=== PATIENT | female | born 1945 | race Caucasian/White ===

== ENCOUNTER 2018-05-29 11:22 | Emergency (ER) | payer MEDICARE ==
--- NOTE | 2018-05-29 13:44 | ED Physician Documentation ---
PD HPI ABD PAIN - Stated complaint Stated Complaint: CONSTIPATION - Chief complaint Chief Complaint: Abd Pain - History obtained from History obtained from: Patient, Family - History of Present Illness Timing - onset: Other (For unclear reasons without new medications or dietary changes she is been very constipated for the last 4 days despite taking oral laxatives. She has rectal pressure and hemorrhoidal bleeding. No vomiting.) Review of Systems Ten Systems: 10 systems reviewed and negative Constitutional: denies: Fever, Chills Cardiac: denies: Chest pain / pressure, Palpitations Respiratory: denies: Dyspnea, Cough GI: reports: Constipation. denies: Abdominal Pain, Nausea, Vomiting, Diarrhea PD PAST MEDICAL HISTORY - Present Medications Home Medications: Ambulatory Orders Medication Instructions Recorded Confirmed Amitriptyline [Elavil] 05/29/18 Aspirin EC [Ecotrin] 05/29/18 Aspirin/Acetaminophen/Caffeine 05/29/18 [Excedrin Extra Strength Caplet] Calcium/Magnesium/Zinc 05/29/18 [Oxaocjn-Uwkclsgee-Zdnp Tablet] Carvedilol 05/29/18 Estrogens, Conjugated [Premarin] 05/29/18 Lactulose [Constulose] 10 gm PO Q6H PRN #200 ml 05/29/18 Levothyroxine [Synthroid] 05/29/18 Meloxicam [Mobic] 7.5 mg PO BID PRN #10 tablet 05/29/18 Multivitamin [Multiple Vitamins] 05/29/18 - Allergies Allergies/Adverse Reactions: Allergies Allergy/AdvReac Type Severity Reaction Status Date / Time morphine AdvReac Emesis Verified 05/29/18 11:33 PD ED PE NORMAL - Vitals Vital signs reviewed: Yes - General General: Alert and oriented X 3, No acute distress - Respiratory Respiratory: No respiratory distress - Abdomen Abdomen: Normal bowel sounds, Soft, Non tender - Rectal Rectal: Other (with Negar, RN, Soft brown fecal impaction, enema placed during examination. Lots of hemorrhoids without active bleeding.) - Back Back: No CVA TTP, No spinal TTP - Neuro Neuro: Alert and oriented X 3, Normal speech Results - Vitals Vitals: Vital Signs - 24 hr 05/29/18 11:30 Temperature 35.7 C L Heart Rate 82 Respiratory 20 Rate Blood Pressure 148/77 H O2 Saturation 96 Oxygen O2 Source Room air - Labs Labs: Laboratory Tests 05/29/18 05/29/18 05/29/18 14:18 14:18 16:30 WBC 6.8 RBC 4.58 Hgb 13.2 Hct 38.8 MCV 84.8 MCH 28.8 MCHC 34.0 RDW 13.8 Plt Count 306 MPV 7.3 L Neut # (Auto) 3.7 Lymph # (Auto) 2.1 [place] # (Auto) 0.5 Eos # (Auto) 0.5 Baso # (Auto) 0.1 Absolute Nucleated RBC 0.00 Nucleated RBC % 0.0 Sodium 138 Potassium 4.5 Chloride 102 Carbon Dioxide 25 Anion Gap 11.0 BUN 18 Creatinine 0.8 Estimated GFR (MDRD) 70 L Glucose 104 H Calcium 10.0 Total Bilirubin 0.2 AST 25 ALT 15 Alkaline Phosphatase 87 Total Protein 8.0 Albumin 4.0 Globulin 4.0 Albumin/Globulin Ratio 1.0 Lipase 37 Urine Color YELLOW Urine Clarity CLOUDY Urine pH 5.5 Ur Specific [place] 1.010 Urine Protein NEGATIVE Urine Glucose (UA) NEGATIVE Urine Ketones NEGATIVE Urine Occult Blood SMALL H Urine Nitrite NEGATIVE Urine Bilirubin NEGATIVE Urine Urobilinogen 0.2 (NORMAL) Ur Leukocyte Esterase MODERATE H Urine RBC 6-10 H Urine WBC 11-25 H Ur Squamous Epith Cells MANY Squamous H Urine Bacteria Moderate H Ur Microscopic Review INDICATED Urine Culture Comments NOT INDICATED - Rads (name of study) CT A/P Radiology: EMP read contemporaneously (Diverticulosis, small rectal ball) PD MEDICAL DECISION MAKING - ED course ED course: She has a high fecal impaction that with difficulty was disimpacted using multiple rounds of enemas. She had a lot of rectal pain and hemorrhoids with it. Departure - Departure Disposition: 01 Home, Self Care Clinical Impression: Fecal impaction Abdominal pain Qualifiers: Abdominal location: generalized Qualified Code(s): R10.84 - Generalized abdominal pain Condition: Good Record reviewed to determine appropriate education?: Yes Instructions: ED Impaction Fecal Treated Prescriptions: Lactulose [Constulose] 10 gm PO Q6H PRN #200 ml PRN Reason: Constipation Meloxicam [Mobic] 7.5 mg PO BID PRN #10 tablet PRN Reason: Pain Comments: Call your doctor to arrange a follow-up appointment, make the next available appointment. In the interim, return anytime if worse or if new symptoms develop. Your blood pressure was elevated today on check into the emergency department. This does not mean that you have hypertension, it is a common phenomenon to come to the emergency department and have elevated blood pressure. I recommend that you see your primary care physician within the week to have it rechecked when you are feeling better.
[2018-05-29] MEDS: MAGNESIUM CITRATE 296 ML BOTTLE PO STA (14:19)
[2018-05-29] MEDS: BISACODYL 5 MG TABLET PO STA (14:20)
[2018-05-29 14:24] LABS: BASOPHILS # (AUTO) 0.1 10^3/uL (0.0-0.1); BASOPHILS % (AUTO) 0.9 %; EOSINOPHILS # (AUTO) 0.5 10^3/uL (0.0-0.7); EOSINOPHILS % (AUTO) 6.6 %; HGB - HEMOGLOBIN 13.2 g/dL (12.0-16.0); LYMPHOCYTES # (AUTO) 2.1 10^3/uL (1.5-3.5); LYMPHOCYTES % (AUTO) 31.1 %; MEAN CORPUSCULAR HEMOGLOBIN 28.8 pg (27.0-31.0); MEAN CORPUSCULAR VOLUME 84.8 fL (81.0-99.0); MEAN PLATELET VOLUME 7.3 fL (7.9-10.8); MONOCYTES # (AUTO) 0.5 10^3/uL (0.0-1.0); MONOCYTES % (AUTO) 6.8 %; NEUTROPHILS # (AUTO) 3.7 10^3/uL (1.5-6.6); NEUTROPHILS % (AUTO) 54.6 %; PLT - PLATELET COUNT 306 10^3/uL (130-450); RED BLOOD COUNT 4.58 10^6/uL (4.20-5.40); RED CELL DISTRIBUTION WIDTH 13.8 % (12.0-15.0); WHITE BLOOD COUNT 6.8 x10^3/uL (4.8-10.8)
[2018-05-29 14:37] LABS: BILIRUBIN,TOTAL 0.2 mg/dL (0.2-1.0); CREATININE 0.8 mg/dL (0.4-1.0)
[2018-05-29] MEDS ORDERED: IOVERSOL 320 100 ML VIAL IVP ONE (14:42)
[2018-05-29] MEDS: IOVERSOL 320 100 ML VIAL IVP ONE (15:05)
--- NOTE | 2018-05-29 15:16 | CT Report ---
Reason: IV only, low abd pain Procedure Date: 05/29/2018 Accession Number: [id number] / [id number] Procedure: CT - Abdomen/Pelvis W/ CPT Code: FULL RESULT: EXAM: CT ABDOMEN AND PELVIS WITH CONTRAST EXAM DATE: 05/29/2018 02:57 PM. CLINICAL HISTORY: Constipation. Lower abdominal pain. COMPARISONS: None. TECHNIQUE: Routine helical CT imaging was performed through the abdomen and pelvis. IV contrast: OPTI 320, 100 mL. Enteric contrast: No. Reconstructions: Coronal and sagittal. In accordance with CT protocol optimization, one or more of the following dose reduction techniques were utilized for this exam: automated exposure control, adjustment of mA and/or KV based on patient size, or use of iterative reconstructive technique. FINDINGS: Lung Bases: Unremarkable. Liver: Fatty infiltration. Gallbladder/Bile Ducts: Cholecystectomy. No biliary duct dilatation. Spleen: Normal. Pancreas: Normal. Adrenal Glands: Normal. Kidneys: Normal. Several 2 cm and smaller renal stones bilaterally. No masses or hydronephrosis. Peritoneal Cavity/Bowel: Diverticula off the colon. No free fluid, free air or adenopathy. No masses or acute inflammatory process. Appendix not visualized but no inflammatory changes adjacent to the cecum. Suspect prior appendectomy. Pelvic Organs: Surgical clips both inguinal regions. Moderate amount of stool within the mildly distended rectum without evidence of stercoral colitis. The bladder and visualized pelvic organs are within normal limits. Vasculature: No aneurysms or other significant abnormality. Bones: No significant abnormality. Other: None. IMPRESSION: 1. Colonic diverticulosis. 2. Small rectal stool ball, not considered significant amount of retained stool. RADIA
[2018-05-29 16:45] LABS: BILIRUBIN,URINE NEGATIVE (NEGATIVE); GLUCOSE, URINE (UA) NEGATIVE (NEGATIVE); KETONES,URINE (UA) NEGATIVE (NEGATIVE); LEUKOCYTE ESTERASE, URINE MODERATE (NEGATIVE); NITRITE,URINE NEGATIVE (NEGATIVE); OCCULT BLOOD,URINE SMALL (NEGATIVE); PH,URINE 5.5 PH (5.0-7.5); PROTEIN,URINE NEGATIVE (NEGATIVE); UROBILINOGEN,URINE 0.2 (NORMAL) E.U./dL (NORMAL)
[2018-05-29 16:48] LABS: CLARITY,URINE CLOUDY (CLEAR)
[2018-05-29 17:05] LABS: BACTERIA,URINE Moderate /HPF (None Seen); SQUAMOUS EPITHELIAL CELL,UR MANY Squamous (<= Few)
[2018-05-29 18:57] VITALS: BP 148/93
== END 2018-05-29 18:57 | disposition home or self-care (01) ==
LOC: ED 11:22
DX: K56.41 Fecal impaction (principal); R10.84 Generalized abdominal pain; R03.0 Elevated blood-pressure reading, without diagnosis of hypertension; K64.9 Unspecified hemorrhoids; Z79.82 Long term (current) use of aspirin
CPT/HCPCS: 36415; 74177; 80053; 81001; 83690; 85025; 99283; 99284; A9270; Q9967; 81003; 87086

== ENCOUNTER 2019-03-03 07:58 | Outpatient (CLI) | payer MEDICARE, OTHER ==
[2019-03-03 08:48] LABS: BASOPHILS % (AUTO) 0.6 %; EOSINOPHILS # (AUTO) 0.2 10^3/uL (0.0-0.7); EOSINOPHILS % (AUTO) 3.5 %; HGB - HEMOGLOBIN 13.1 g/dL (12.0-16.0); LYMPHOCYTES # (AUTO) 2.3 10^3/uL (1.5-3.5); LYMPHOCYTES % (AUTO) 34.6 %; MEAN CORPUSCULAR HEMOGLOBIN 28.4 pg (27.0-31.0); MEAN CORPUSCULAR HGB CONC 31.8 g/dL (32.0-36.0); MEAN CORPUSCULAR VOLUME 89.4 fL (81.0-99.0); MEAN PLATELET VOLUME 9.8 fL (7.9-10.8); MONOCYTES # (AUTO) 0.4 10^3/uL (0.0-1.0); MONOCYTES % (AUTO) 6.5 %; NEUTROPHILS # (AUTO) 3.6 10^3/uL (1.5-6.6); PLT - PLATELET COUNT 232 10^3/uL (130-450); RED BLOOD COUNT 4.61 10^6/uL (4.20-5.40); RED CELL DISTRIBUTION WIDTH 13.6 % (12.0-15.0); WHITE BLOOD COUNT 6.6 x10^3/uL (4.8-10.8)
[2019-03-03 09:11] LABS: BILIRUBIN,URINE NEGATIVE (NEGATIVE); GLUCOSE, URINE (UA) NEGATIVE (NEGATIVE); KETONES,URINE (UA) NEGATIVE (NEGATIVE); LEUKOCYTE ESTERASE, URINE SMALL (NEGATIVE); NITRITE,URINE NEGATIVE (NEGATIVE); OCCULT BLOOD,URINE MODERATE (NEGATIVE); PH,URINE 5.5 PH (5.0-7.5); PROTEIN,URINE NEGATIVE (NEGATIVE); UROBILINOGEN,URINE 0.2 (NORMAL) E.U./dL (NORMAL)
[2019-03-03 09:25] LABS: ALBUMIN 3.8 g/dL (3.2-5.5); ALBUMIN/GLOBULIN RATIO 1.1 (1.0-2.2); ALKALINE PHOSPHATASE 67 IU/L (42-121); ALT ALANINE AMINOTRANSFERASE 14 IU/L (10-60); AST ASPARTATE AMINOTRANSFERASE 38 IU/L (10-42); BILIRUBIN,TOTAL 0.7 mg/dL (0.2-1.0); BUN - BLOOD UREA NITROGEN 16 mg/dL (6-20); CALCIUM 9.6 mg/dL (8.5-10.3); CARBON DIOXIDE - CO2 23 mmol/L (21-32); CHLORIDE 103 mmol/L (101-111); CHOL/HDL RATIO 3.1 (<4.4); CHOLESTEROL 246 mg/dL; GFR - MDRD 54 (>89); GLUCOSE 99 mg/dL (70-100); HDL CHOLESTEROL 79 mg/dL; LDL CHOLESTEROL,CALCULATED 127 mg/dL; LDL/HDL RATIO 1.6 (<4.4); SODIUM 139 mmol/L (135-145); TOTAL PROTEIN 7.3 g/dL (6.7-8.2); VLDL CHOLESTEROL 40 mg/dL
[2019-03-03 09:34] LABS: THYROID STIMULATING HORMONE 0.58 uIU/mL (0.34-5.60)
[2019-03-03 10:53] LABS: CLARITY,URINE CLEAR (CLEAR)
[2019-03-03 10:54] LABS: BACTERIA,URINE Moderate /HPF (None Seen); RBC,URINE 0-5 /HPF (0-5); SQUAMOUS EPITHELIAL CELL,UR MOD Squamous (<= Few)
== END 2019-03-03 07:59 | disposition home or self-care (01) ==
LOC: LAB 07:58
PROVIDERS: ATTEND Internal Medicine
DX: R53.83 Other fatigue (principal); I10 Essential (primary) hypertension; K57.92 Diverticulitis of intestine, part unspecified, without perforation or abscess without bleeding; G43.909 Migraine, unspecified, not intractable, without status migrainosus; E03.9 Hypothyroidism, unspecified; Z13.6 Encounter for screening for cardiovascular disorders; Z79.899 Other long term (current) drug therapy
CPT/HCPCS: 36415; 80053; 80061; 81001; 81003; 82607; 83721; 84443; 85025; 87086

== ENCOUNTER 2019-03-19 10:42 | Outpatient (CLI) | payer MEDICARE, OTHER ==
--- NOTE | 2019-04-05 10:29 | Mammography Report ---
Reason: ROUTINE MAMMO Procedure Date: 03/19/2019 Accession Number: [id number] / [id number] Procedure: HÉCTOR - Screening Mammo w/Gucci CPT Code: FULL RESULT: EXAM: Screening Mammo w/Gucci DATE: 03/19/2019 11:22 AM CLINICAL HISTORY: Routine screening TECHNIQUE: (B) - Bilateral CC and MLO views were obtained. COMPARISON: None available PARENCHYMAL PATTERN: (A) - The breasts demonstrate scattered fibroglandular densities bilaterally. FINDINGS: There are no suspicious calcifications, skin thickening, or areas of distortion. Multiple bilateral masses of varying size are present. On the right the dominant 3 all measure under 1 cm and are in the upper outer quadrant. On the left the dominant measures 8.5 mm and is in the upper inner breast approximately 4 cm from the nipple. A cluster of 3 adjacent nodules are present in the 2:00 position 8 cm from the nipple with several smaller nodules also in the upper outer quadrant and 12:00 position. IMPRESSION: Incomplete examination. BI-RADS category 0. Suggest bilateral true lateral views and ultrasound for further evaluation of the numerous nodules, presumed cysts. Dominant nodules have been described above. RECOMMENDATION: (ADDM[facility]) - Additional views using both Mammography and Ultrasound recommended. BI-RADS CATEGORY: (0) - Incomplete Examination - need additional evaluation. STANDARD QUALIFYING STATEMENTS: 1. This examination was not reviewed with the aid of Computer-Aided Detection (CAD). 2. A negative or benign imaging report should not preclude biopsy if clinically suspicious findings are present. 3. Dense breasts may obscure an underlying neoplasm. 4. This examination was reviewed with the aid of 3D breast imaging (tomosynthesis). Comment: If prior mammograms become available for comparison additional imaging may not be necessary.
== END 2019-03-19 10:43 | disposition home or self-care (01) ==
LOC: DI 10:42
PROVIDERS: ATTEND Internal Medicine
DX: Z12.31 Encounter for screening mammogram for malignant neoplasm of breast (principal); R92.8 Other abnormal and inconclusive findings on diagnostic imaging of breast
CPT/HCPCS: 77063; 77067

== ENCOUNTER 2019-04-23 08:53 | Outpatient (CLI) | payer MEDICARE, OTHER ==
--- NOTE | 2019-04-23 10:53 | Mammography Report ---
Reason: ABN MAMMO - BILAT SPEC VIEWS Procedure Date: 04/23/2019 Accession Number: [id number] / [id number] Procedure: HÉCTOR - Diag Special Views Dig Bilat CPT Code: Final Report FULL RESULT: EXAM: Diag Special Views Dig Bilat, Breast Unilateral Limited, Breast Unilateral Limited DATE: 04/23/2019 9:29 AM CLINICAL HISTORY: Recall from screening for bilateral oval masses. No reported personal or family history of breast cancer. Long-term hormone replacement therapy. TECHNIQUE: (B) - Bilateral CC and ML views were obtained. Bilateral real-time sonography is performed by both the technologist and the radiologist. COMPARISON: 03/19/2019. PARENCHYMAL PATTERN: (A) - The breasts demonstrate scattered fibroglandular densities bilaterally. FINDINGS: Bilateral breasts: There are numerous bilateral, round and oval, circumscribed margin benign-appearing masses in both breasts. These bilateral mammographic findings to encompass multiple areas recalled from screening bilaterally, as well as other similar-appearing findings. There are no suspicious calcifications or areas of distortion. Bilateral breast ultrasound demonstrates numerous bilateral anechoic simple parenchymal cysts accounting for mammographic findings. The entire upper breasts are scanned bilaterally no solid or concerning masses. A single mildly complicated/compartmentalized 8 mm cyst 12:00 left breast 5 cm from the nipple is noted, all other cysts have simple characteristics. IMPRESSION: Benign findings. BI-RADS category 2. RECOMMENDATION: (ANNUAL) - Recommend routine annual screening mammography. BI-RADS CATEGORY: (2) - Benign Findings. STANDARD QUALIFYING STATEMENTS: 1. This examination was not reviewed with the aid of Computer-Aided Detection (CAD). 2. A negative or benign imaging report should not preclude biopsy if clinically suspicious findings are present. 3. Dense breasts may obscure an underlying neoplasm. 4. This examination was reviewed with the aid of 3D breast imaging (tomosynthesis).
== END 2019-04-23 08:54 | disposition home or self-care (01) ==
LOC: DI 08:53
PROVIDERS: ATTEND Internal Medicine
DX: N60.12 Diffuse cystic mastopathy of left breast (principal); N60.11 Diffuse cystic mastopathy of right breast
CPT/HCPCS: 76642; 77066

== ENCOUNTER 2020-01-25 08:25 | Emergency (ER) | payer MEDICARE, OTHER ==
[2020-01-25 09:06] LABS: BASOPHILS % (AUTO) 0.5 %; EOSINOPHILS # (AUTO) 0.3 10^3/uL (0.0-0.7); EOSINOPHILS % (AUTO) 3.4 %; HGB - HEMOGLOBIN 13.1 g/dL (12.0-16.0); LYMPHOCYTES # (AUTO) 2.6 10^3/uL (1.5-3.5); LYMPHOCYTES % (AUTO) 32.8 %; MEAN CORPUSCULAR HEMOGLOBIN 28.4 pg (27.0-31.0); MEAN CORPUSCULAR HGB CONC 32.7 g/dL (32.0-36.0); MEAN CORPUSCULAR VOLUME 86.8 fL (81.0-99.0); MEAN PLATELET VOLUME 8.8 fL (7.9-10.8); MONOCYTES # (AUTO) 0.5 10^3/uL (0.0-1.0); MONOCYTES % (AUTO) 6.4 %; NEUTROPHILS # (AUTO) 4.4 10^3/uL (1.5-6.6); NEUTROPHILS % (AUTO) 56.5 %; PLT - PLATELET COUNT 319 10^3/uL (130-450); RED BLOOD COUNT 4.62 10^6/uL (4.20-5.40); RED CELL DISTRIBUTION WIDTH 13.2 % (12.0-15.0); WHITE BLOOD COUNT 7.8 x10^3/uL (4.8-10.8)
[2020-01-25 09:23] LABS: BILIRUBIN,URINE NEGATIVE (NEGATIVE); GLUCOSE, URINE (UA) NEGATIVE (NEGATIVE); KETONES,URINE (UA) NEGATIVE (NEGATIVE); LEUKOCYTE ESTERASE, URINE SMALL (NEGATIVE); NITRITE,URINE NEGATIVE (NEGATIVE); OCCULT BLOOD,URINE MODERATE (NEGATIVE); PH,URINE 5.5 PH (5.0-7.5); PROTEIN,URINE NEGATIVE (NEGATIVE); UROBILINOGEN,URINE 0.2 (NORMAL) E.U./dL (NORMAL)
[2020-01-25 09:26] LABS: ALBUMIN 3.8 g/dL (3.2-5.5); ALBUMIN/GLOBULIN RATIO 0.9 (1.0-2.2); BILIRUBIN,TOTAL 0.3 mg/dL (0.2-1.0); CREATININE 0.8 mg/dL (0.4-1.0); TOTAL PROTEIN 7.9 g/dL (6.7-8.2)
[2020-01-25 09:31] LABS: CLARITY,URINE CLEAR (CLEAR)
[2020-01-25] MEDS: ONDANSETRON 4 MG/2 ML VIAL IVP STA (09:31)
[2020-01-25] MEDS: fentaNYL 100 MCG/2 ML VIAL IVP STA (09:31)
[2020-01-25] MEDS: KETOROLAC 15 MG/ML VIAL IVP STA (09:31)
[2020-01-25] MEDS: FAMOTIDINE 20 MG/2 ML SYRINGE IVP STA (09:32)
[2020-01-25] MEDS: MAG HYDROX/AL HYDROX/SIMETH 30 ML UDC PO STA (09:32)
[2020-01-25 09:44] LABS: BACTERIA,URINE Few /HPF (None Seen); RBC,URINE 0-5 /HPF (0-5); SQUAMOUS EPITHELIAL CELL,UR MOD Squamous (<= Few)
[2020-01-25] MEDS: SODIUM CHLORIDE 0.9% 1,000 ML IV STA (09:45)
[2020-01-25] MEDS ORDERED: IOVERSOL 320 100 ML VIAL IVP ONE (09:50)
--- NOTE | 2020-01-25 10:53 | CT Report ---
PROCEDURE: Abdomen/Pelvis W INDICATIONS: abd pain upper, nausea CONTRAST: IV CONTRAST: Optiray 320 ml: TECHNIQUE: After the administration of IV contrast, 5 mm thick sections acquired from the diaphragms to the symp hysis. 5 mm thick coronal and sagittal reformats were acquired. For radiation dose reduction, the f ollowing was used: automated exposure control, adjustment of mA and/or kV according to patient size. COMPARISON: None. FINDINGS: Image quality: Excellent. ABDOMEN: Lung bases: Lung bases are clear. Heart size is normal. Solid organs: Liver is enlarged with steatosis. Spleen is unremarkable. Gallbladder has been removed . Common bile duct is prominent measuring 13 mm. Pancreas enhances normally. No adrenal nodules. Kidneys demonstrate normal size and enhancement, without hydronephrosis. Peritoneum and bowel: Bowel loops demonstrate normal wall thickness and caliber. No free fluid or a ir. Colonic diverticula are present without associated inflammatory change. Nodes and vessels: There is a cluster of lymph nodes within the mid abdominal mesentery on series 3 i mages 46 and 47. The largest measures approximately 19 mm in short axis. There is a very minimal appe arance of stranding within the mesenteric fat within this region. Portions of this region are obscure d by overlapping noncontrasted bowel loops. Aorta and inferior vena cava are normal in size. Miscellaneous: No ventral hernias. PELVIS: Genitourinary: Bladder wall thickness is normal. Miscellaneous: No inguinal hernias or adenopathy. Bones: No suspicious bony lesions. No vertebral body compression fractures. IMPRESSION: 1. Nonspecific appearance of scattered mid abdominal mesenteric lymph nodes as above. These could be reactive in nature. However, recommend interval follow-up to document resolution and exclude presence of other more aggressive etiologies. 2. Hepatomegaly with steatosis. 3. Diverticulosis. 4. Prominent common bile duct suspected to be related to postcholecystectomy sequela. However, recomm end correlation to laboratory values. Reviewed by: Venita Workman MD on 01/25/2020 10:51 AM PDT Approved by: Venita Workman MD on 01/25/2020 10:51 AM PDT Station ID: [id number]
--- NOTE | 2020-01-25 11:53 | ED Physician Documentation ---
PD HPI ABD PAIN - Stated complaint Stated Complaint: R SIDE PX - Chief complaint Chief Complaint: Abd Pain - History obtained from History obtained from: Patient - History of Present Illness Timing - onset: How many months ago (has had upper right abd pain after eating at times for past couple of months intermittently, but more consistent the past several days/week.) Timing - details: Still present, Intermittant Quality: Cramping, Aching, Pain Location: RUQ, Epigastric Radiation: No: Lower back, Right shoulder Improved by: No: Eating Worsened by: Eating Associated symptoms: Nausea, Loss of appetite. No: Fever, Vomiting, Diarrhea, Dysuria, Near syncope / syncope, Weight loss Similar symptoms before: Has not had sx before Recently seen: Not recently seen Review of Systems Constitutional: denies: Fever, Chills, Myalgias Nose: denies: Rhinorrhea / runny nose, Congestion Throat: denies: Sore throat Cardiac: denies: Chest pain / pressure Respiratory: denies: Cough GI: reports: Abdominal Pain, Nausea. 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 - Present Medications Home Medications: Ambulatory Orders Medication Instructions Recorded Confirmed Amitriptyline [Elavil] 05/29/18 Aspirin EC [Ecotrin] 05/29/18 Aspirin/Acetaminophen/Caffeine 05/29/18 [Excedrin Extra Strength Caplet] Calcium/Magnesium/Zinc 05/29/18 [Aqeshvs-Fosuzundu-Bpea Tablet] Estrogens, Conjugated [Premarin] 05/29/18 Lactulose [Constulose] 10 gm PO Q6H PRN #200 ml 05/29/18 Levothyroxine [Synthroid] 05/29/18 Meloxicam [Mobic] 7.5 mg PO BID PRN #10 tablet 05/29/18 Multivitamin [Multiple Vitamins] 05/29/18 carvediloL [Carvedilol] 05/29/18 Hydrocodone/Acetaminophen [Stebbins 1 each PO Q6H PRN #15 tablet 01/25/20 5-325 Tablet] Lidocaine Viscous 2% [Xylocaine 5 ml PO Q4H PRN #100 ml 01/25/20 Viscous 2%] Ondansetron Odt [Zofran] 4 mg TL Q6H PRN #10 tablet 01/25/20 Pantoprazole Sodium 40 mg PO DAILY #30 tablet. 01/25/20 Sucralfate [Carafate] 1 gm PO TID #30 tablet 01/25/20 - Allergies Allergies/Adverse Reactions: Allergies Allergy/AdvReac Type Severity Reaction Status Date / Time morphine AdvReac Emesis Verified 01/25/20 08:34 - Social History Does the pt smoke?: No Smoking Status: Never smoker Does the pt drink ETOH?: No Does the pt have substance abuse?: No - Immunizations Immunizations are current?: Yes PD ED PE NORMAL - Vitals Vital signs reviewed: Yes - General General: Alert and oriented X 3, No acute distress (does seem uncomfortable and holding upper abdomen. ), Well developed/nourished - HEENT HEENT: Pharynx benign - Neck Neck: Supple, no meningeal sign, No adenopathy - Cardiac Cardiac: RRR, No murmur - Respiratory Respiratory: Clear bilaterally - Abdomen Abdomen: Non distended, No organomegaly, Other (tender in epigastric area without guarding. Mild percussion tenderness.) Results - Vitals Vitals: Vital Signs - 24 hr 01/25/20 01/25/20 01/25/20 08:31 10:05 12:09 Temperature 36.5 C 36.4 C L Heart Rate 88 88 84 Respiratory 16 20 18 Rate Blood Pressure 184/123 H 166/84 H 141/86 H O2 Saturation 99 98 98 Oxygen O2 Source Room air - Labs Labs: Laboratory Tests 01/25/20 01/25/20 01/25/20 09:00 09:00 09:00 WBC 7.8 RBC 4.62 Hgb 13.1 Hct 40.1 MCV 86.8 MCH 28.4 MCHC 32.7 RDW 13.2 Plt Count 319 MPV 8.8 Neut # (Auto) 4.4 Lymph # (Auto) 2.6 [place] # (Auto) 0.5 Eos # (Auto) 0.3 Baso # (Auto) 0.0 Absolute Nucleated RBC 0.00 Nucleated RBC % 0.0 Sodium 135 Potassium 4.1 Chloride 99 L Carbon Dioxide 23 Anion Gap 13.0 BUN 16 Creatinine 0.8 Estimated GFR (MDRD) 70 L Glucose 112 H Calcium 10.0 Total Bilirubin 0.3 AST 24 ALT 16 Alkaline Phosphatase 87 Total Protein 7.9 Albumin 3.8 Globulin 4.1 Albumin/Globulin Ratio 0.9 L Lipase 32 Urine Color YELLOW Urine Clarity CLEAR Urine pH 5.5 Ur Specific [place] 1.020 Urine Protein NEGATIVE Urine Glucose (UA) NEGATIVE Urine Ketones NEGATIVE Urine Occult Blood MODERATE H Urine Nitrite NEGATIVE Urine Bilirubin NEGATIVE Urine Urobilinogen 0.2 (NORMAL) Ur Leukocyte Esterase SMALL H Urine RBC 0-5 Urine WBC 0-3 Ur Squamous Epith Cells MOD Squamous H Urine Bacteria Few Ur Microscopic Review INDICATED Urine Culture Comments NOT INDICATED PD MEDICAL DECISION MAKING - ED course Complexity details: reviewed results (labs and CT normal. Presume gastritis/duodenitis by history. ), re-evaluated patient, considered differential (upper abd pain with eating. s/p CCY. Can get labs to eval liver function and CT to exclude transverse diverticulitis, or other process.), d/w patient Departure - Departure Disposition: Home, Self Care Clinical Impression: Upper abdominal pain Gastritis, acute Qualifiers: Gastritis type: other gastritis Gastritis bleeding: without bleeding Qualified Code(s): K29.00 - Acute gastritis without bleeding Condition: Stable Record reviewed to determine appropriate education?: Yes Instructions: ED PUD Vs Gastritis Follow-Up: Alessia Ga MD [Primary Care Provider] - Prescriptions: Sucralfate [Carafate] 1 gm PO TID #30 tablet Hydrocodone/Acetaminophen [Stebbins 5-325 Tablet] 1 each PO Q6H PRN #15 tablet PRN Reason: Pain Pantoprazole Sodium 40 mg PO DAILY #30 tablet. Lidocaine Viscous 2% [Xylocaine Viscous 2%] 5 ml PO Q4H PRN #100 ml PRN Reason: Pain Ondansetron Odt [Zofran] 4 mg TL Q6H PRN #10 tablet PRN Reason: Nausea / Vomiting Comments: Your CT scan and labs did not show any localized process to account for the pain. There were a few scattered lymph nodes which suggest reacting to some inflammation. Your symptoms would suggest an ulcer or gastritis, which typically is not visible on CT/labs. I would suggest taking pantoprazole acid reducing medicine daily for the next month. For the initial 7 to 10 days, also use sucralfate to coat the stomach and duodenum. For symptoms he can add antacid such as Maalox or Mylanta and add a teaspoon of lidocaine to it if needed for stomach pain. You could also use Tylenol if nee ded. Add hydrocodone if needed for worse pain. Did not use any ibuprofen or naproxen or other anti-inflammatories as it can bother your stomach. Recheck if not improving well over the next several days and resolved within a week. Return if worsening. Discharge Date/Time: 01/25/20 12:10
[2020-01-25 12:10] VITALS: BP 141/86
[2020-01-25] MEDS: IOVERSOL 320 100 ML VIAL IVP ONE (15:54)
== END 2020-01-25 12:10 | disposition home or self-care (01) ==
LOC: ED 08:25
DX: K29.00 Acute gastritis without bleeding (principal); K76.0 Fatty (change of) liver, not elsewhere classified; Z87.19 Personal history of other diseases of the digestive system; I10 Essential (primary) hypertension; Z79.82 Long term (current) use of aspirin
CPT/HCPCS: 36415; 74177; 80053; 81001; 83690; 85025; 96361; 96374; 96375; 99284; A9270; Q9967; 81003; 87086

== ENCOUNTER 2020-04-04 08:16 | Outpatient (CLI) | payer MEDICARE, OTHER ==
[2020-04-04 08:56] LABS: BASOPHILS % (AUTO) 0.5 %; EOSINOPHILS # (AUTO) 0.2 10^3/uL (0.0-0.7); EOSINOPHILS % (AUTO) 3.4 %; HGB - HEMOGLOBIN 11.3 g/dL (12.0-16.0); LYMPHOCYTES # (AUTO) 1.7 10^3/uL (1.5-3.5); LYMPHOCYTES % (AUTO) 26.8 %; MEAN CORPUSCULAR HEMOGLOBIN 26.8 pg (27.0-31.0); MEAN CORPUSCULAR HGB CONC 31.2 g/dL (32.0-36.0); MEAN PLATELET VOLUME 8.3 fL (7.9-10.8); MONOCYTES # (AUTO) 0.4 10^3/uL (0.0-1.0); MONOCYTES % (AUTO) 6.9 %; NEUTROPHILS % (AUTO) 61.9 %; PLT - PLATELET COUNT 340 10^3/uL (130-450); RED BLOOD COUNT 4.21 10^6/uL (4.20-5.40); RED CELL DISTRIBUTION WIDTH 13.2 % (12.0-15.0); WHITE BLOOD COUNT 6.4 x10^3/uL (4.8-10.8)
[2020-04-04 09:48] LABS: THYROID STIMULATING HORMONE 0.65 uIU/mL (0.34-5.60)
[2020-04-04 10:10] LABS: ALBUMIN 3.3 g/dL (3.2-5.5); ALBUMIN/GLOBULIN RATIO 0.8 (1.0-2.2); ALKALINE PHOSPHATASE 94 IU/L (42-121); ALT ALANINE AMINOTRANSFERASE 18 IU/L (10-60); AST ASPARTATE AMINOTRANSFERASE 24 IU/L (10-42); BILIRUBIN,TOTAL 0.5 mg/dL (0.2-1.0); BUN - BLOOD UREA NITROGEN 17 mg/dL (6-20); CARBON DIOXIDE - CO2 21 mmol/L (21-32); CHLORIDE 105 mmol/L (101-111); CHOL/HDL RATIO 3.1 (<4.4); CHOLESTEROL 193 mg/dL; CREATININE 0.8 mg/dL (0.4-1.0); GLUCOSE 102 mg/dL (70-100); HDL CHOLESTEROL 62 mg/dL; LDL CHOLESTEROL,CALCULATED 92 mg/dL; LDL/HDL RATIO 1.5 (<4.4); SODIUM 136 mmol/L (135-145); TOTAL PROTEIN 7.2 g/dL (6.7-8.2); VLDL CHOLESTEROL 39 mg/dL
[2020-04-04 17:45] LABS: MAGNESIUM 2.1 mg/dL (1.7-2.8)
[2020-04-05 10:11] LABS: HEPATITIS C ANTIBODY NON-REACTIVE (NON-REACTIVE)
== END 2020-04-04 08:17 | disposition home or self-care (01) ==
LOC: LAB 08:16
PROVIDERS: ATTEND Internal Medicine
DX: Z13.6 Encounter for screening for cardiovascular disorders (principal); Z79.899 Other long term (current) drug therapy; R53.83 Other fatigue; I10 Essential (primary) hypertension; K57.92 Diverticulitis of intestine, part unspecified, without perforation or abscess without bleeding; G03.9 Meningitis, unspecified; G43.909 Migraine, unspecified, not intractable, without status migrainosus; R10.9 Unspecified abdominal pain; Z11.59 Encounter for screening for other viral diseases; K56.609 Unspecified intestinal obstruction, unspecified as to partial versus complete obstruction
CPT/HCPCS: 36415; 80053; 80061; 82607; 83721; 83735; 84443; 85025; 86803

== ENCOUNTER 2020-04-13 11:05 | Outpatient (CLI) | payer MEDICARE, OTHER ==
[2020-04-13] MEDS ORDERED: IOVERSOL 320 50 ML VIAL ONE (11:15)
[2020-04-13] MEDS ORDERED: IOVERSOL 320 100 ML VIAL IVP ONE ×2 (11:15→16:15)
--- NOTE | 2020-04-13 13:16 | CT Report ---
PROCEDURE: Abdomen/Pelvis W INDICATIONS: ABN CT, ENLARGED LN AND CBD CONTRAST: IV CONTRAST: Optiray 320 ml: 100 PO CONTRAST: Optiray 320 ml50 TECHNIQUE: After the administration of oral and intravenous contrast, 5 mm thick sections acquired from the diap hragms to the symphysis. 5 mm thick coronal and sagittal reformats were acquired. For radiation dos e reduction, the following was used: automated exposure control, adjustment of mA and/or kV accordin g to patient size. COMPARISON: 01/25/2020. FINDINGS: Image quality: Excellent. ABDOMEN: Lung bases: Lung bases are clear. Heart size is normal. Solid organs: Again noted is mild hepatomegaly and hepatic steatosis. Mild splenomegaly has developed . The spleen previously measured 13.3 cm and currently measures 14.6 cm. Gallbladder is surgically ab sent dilatation of the extrahepatic biliary tree postcholecystectomy without focal obstructing mass. Pancreas enhances normally. No adrenal nodules. Kidneys demonstrate normal size and enhancement, wi thout hydronephrosis. Peritoneum and bowel: A focal loop of abnormal jejunum has developed, and which there is diffuse wall thickening and mild dilatation. It is present on image 61/3. The constellation of this finding and a ssociated mesenteric adenopathy raise the question of possible lymphomatous involvement of a loop of small bowel. Extensive sigmoid diverticulosis without evidence of diverticulitis. No free fluid or ai r. Nodes and vessels: Definite interval progression of disease. Mesenteric adenopathy has increased in s ize, and is not clearly pathologic. Findings are suspicious for lymphoma. On image 50/3 there is a 3. 5 cm is an enteric lymph node. On image 55/3 is a 3.3 cm mesenteric lymph node. Multiple other enlarg ed mesenteric lymph nodes are present as well. Aorta and inferior vena cava are normal in size. Miscellaneous: No ventral hernias. PELVIS: Genitourinary: Bladder wall thickness is normal. Miscellaneous: Bilateral inguinal hernias containing fat. Surgical absence of the uterus. Bones: No suspicious bony lesions. No vertebral body compression fractures. IMPRESSION: 1. Definite interval progression of disease in the abdomen. A loop of abnormal appearing jejunum has developed, with wall thickening and mild dilatation. Additionally, multiple mesenteric lymph nodes coronel ve increased in size, and are clearly pathologic. 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 2. Development of mild splenomegaly, also supportive of the diagnosis of lymphoma. 3. Unchanged hepatomegaly, hepatic steatosis. 4. Sigmoid diverticulosis. 5. Bilateral fat-containing inguinal hernias. Comment: It is unlikely that the mesenteric adenopathy could be sampled under CT guidance, as based o n this study, there is no window between bowel loops present for performing a biopsy. Reviewed by: Rashid Tovar MD on 04/13/2020 1:15 PM PST Approved by: Rashid Tovar MD on 04/13/2020 1:15 PM PST Station ID: [id number]
[2020-04-13] MEDS ORDERED: IOVERSOL 320 50 ML VIAL PO ONE (16:14)
== END 2020-04-13 11:06 | disposition home or self-care (01) ==
LOC: DI 11:05
PROVIDERS: ATTEND Surgery
DX: R59.0 Localized enlarged lymph nodes (principal); K76.0 Fatty (change of) liver, not elsewhere classified; R16.1 Splenomegaly, not elsewhere classified; K57.30 Diverticulosis of large intestine without perforation or abscess without bleeding; K40.20 Bilateral inguinal hernia, without obstruction or gangrene, not specified as recurrent; R93.5 Abnormal findings on diagnostic imaging of other abdominal regions, including retroperitoneum
CPT/HCPCS: 74177; Q9967

== ENCOUNTER 2020-05-01 09:25 | Outpatient (CLI) | payer MEDICARE, OTHER ==
[2020-05-01 09:49] LABS: BASOPHILS % (AUTO) 0.5 %; EOSINOPHILS # (AUTO) 0.2 10^3/uL (0.0-0.7); EOSINOPHILS % (AUTO) 2.8 %; HGB - HEMOGLOBIN 10.9 g/dL (12.0-16.0); LYMPHOCYTES # (AUTO) 1.7 10^3/uL (1.5-3.5); LYMPHOCYTES % (AUTO) 26.7 %; MEAN CORPUSCULAR HEMOGLOBIN 26.6 pg (27.0-31.0); MEAN CORPUSCULAR VOLUME 85.9 fL (81.0-99.0); MONOCYTES # (AUTO) 0.4 10^3/uL (0.0-1.0); MONOCYTES % (AUTO) 6.3 %; NEUTROPHILS # (AUTO) 4.1 10^3/uL (1.5-6.6); NEUTROPHILS % (AUTO) 63.2 %; PLT - PLATELET COUNT 323 10^3/uL (130-450); RED CELL DISTRIBUTION WIDTH 13.5 % (12.0-15.0); WHITE BLOOD COUNT 6.4 x10^3/uL (4.8-10.8)
== END 2020-05-01 09:26 | disposition home or self-care (01) ==
LOC: LAB 09:25
PROVIDERS: ATTEND Surgery
DX: R59.1 Generalized enlarged lymph nodes (principal)
CPT/HCPCS: 36415; 85025

== ENCOUNTER 2020-05-15 11:00 | Outpatient (CLI) | payer MEDICARE, OTHER | END 2020-05-15 11:01 | disposition home or self-care (01) | LOC: LAB 11:00 | PROVIDERS: ATTEND Surgery | DX: Z01.818 Encounter for other preprocedural examination (principal); K56.609 Unspecified intestinal obstruction, unspecified as to partial versus complete obstruction; I88.0 Nonspecific mesenteric lymphadenitis; R63.4 Abnormal weight loss; R10.13 Epigastric pain; R68.81 Early satiety; Z20.828 Contact with and (suspected) exposure to other viral communicable diseases ==

== ENCOUNTER 2020-05-18 12:15 | Day surgery (SDC) | payer MEDICARE, OTHER ==
[2020-05-18] MEDS ORDERED: CEFOTETAN DISODIUM 2 GM in SODIUM CHLORIDE 0.9% MINIBAG 100 ML IV ONE (12:45)
[2020-05-18] MEDS ORDERED: LACTATED RINGERS 1,000 ML IV ONE ×3 (13:28→16:20)
[2020-05-18] MEDS ORDERED: LIDOCAINE 1% 50 ML MDV ONE (14:08)
[2020-05-18] MEDS ORDERED: BUPIVACAINE 0.5%-EPI 1:200000 PF 30 ML VIAL ONE (14:08)
--- NOTE | 2020-05-18 14:30 | ANESTHESIA ---
Pre-Anesthesia VS, & Labs - Diagnosis abd pain, jejunal obstruction - Procedure diagnostic laparoscopy Vital Signs: Temp Pulse Resp BP Pulse Ox 36.1 C L 82 16 154/71 H 100 05/18/20 12:50 05/18/20 12:50 05/18/20 12:50 05/18/20 12:50 05/18/20 12:50 Height: 5 ft 6 in Weight (kg): 97 kg Body Mass Index: 34.4 BMI Classification: Obese - NPO >8 hours - Is Patient ?: No - Lab Results Lab results reviewed: Yes Home Medications and Allergies Home Medications: Ambulatory Orders Cholecalciferol [Vitamin D3] 25 mcg PO DAILY 05/15/20 Omeprazole 20 mg PO DAILY 05/15/20 Active Medications Scopolamine HBr (Scopolamine Patch) 1 patch TOP Q3D [place] Amitriptyline [Elavil] 25 mg PO DAILY 05/29/18 Calcium/Magnesium/Zinc [Ssmzsce-Yamhvrein-Sdoq Tablet] 1 tab PO DAILY 05/29/18 Estrogens, Conjugated [Premarin] 0.625 mg PO DAILY 05/29/18 Levothyroxine [Synthroid] 100 mcg PO DAILY 05/29/18 Multivitamin [Multiple Vitamins] 1 tab PO DAILY 05/29/18 carvediloL [Carvedilol] 12.5 mg PO DAILY 05/29/18 Cholecalciferol [Vitamin D3] 25 mcg PO DAILY 05/15/20 Omeprazole 20 mg PO DAILY 05/15/20 Allergies/Adverse Reactions: Allergies Allergy/AdvReac Type Severity Reaction Status Date / Time morphine AdvReac Emesis Verified 01/25/20 08:34 shellfish derived AdvReac Emesis Verified 05/15/20 11:09 Anes History & Medical History - Anesthetic History Anesthesia Complications: reports: No previous complications, Post-Operative Nausea/Vomiting (scope patch) Family history of Anesthesia Complications: Denies Family history of Malignant Hyperthermia: Denies - Medical History Cardiovascular: reports: Hypertension Pulmonary: reports: None Gastrointestinal: reports: Diverticulitis Urinary: reports: None Neuro: reports: Migraines Musculoskeletal: reports: Osteoarthritis Endocrine/Autoimmune: reports: HyPOthyroidism Blood Disorders: reports: None Skin: reports: None Smoking Status: Never smoker - Surgical History General: Cholecystectomy Gynecologic: Hysterectomy Orthopedic: Knee replacement Exam General: Alert, Oriented x3, Cooperative Dental: Dentures full Upper Mouth Openin Fingerbreadth Neck Mobility: Normal Mallampati classification: II Respiratory: Lungs clear, Normal breath sounds, No respiratory distress Cardiovascular: Regular rate Neurological: Normal speech Mental/Cognitive Status: Alert/Oriented X3, Normal for patient Cognitive Status: Within normal limits Plan Anesthesia Type: General, Transverse Abdominis Plane (TAP) Block (if open) Consent for Procedure(s) Verified and Reviewed: Yes Code Status: Attempt Resuscitation ASA classification: 2-Mild systemic disease Is this case an emergency?: No
[2020-05-18] MEDS ORDERED: ROCURONIUM 50 MG/5 ML VIAL IVP ONE (14:38)
[2020-05-18] MEDS ORDERED: GLYCOPYRROLATE 1 MG/5 ML VIAL IVP ONE (14:38)
[2020-05-18] MEDS ORDERED: NEOSTIGMINE 1 MG/1 ML 10 ML MDV IVP ONE (14:38)
[2020-05-18] MEDS ORDERED: ONDANSETRON 4 MG/2 ML VIAL IVP ONE (14:38)
[2020-05-18] MEDS ORDERED: PROPOFOL 200 MG/20 ML VIAL IVP ONE (14:38)
[2020-05-18] MEDS ORDERED: fentaNYL 100 MCG/2 ML VIAL IVP ONE (14:38)
[2020-05-18] MEDS ORDERED: DEXAMETHASONE 4 MG/ML VIAL IVP ONE (14:38)
[2020-05-18] MEDS ORDERED: MIDAZOLAM 2 MG/2 ML VIAL IVP ONE (14:38)
[2020-05-18] MEDS ORDERED: LIDOCAINE 1% 50 ML MDV SUBQ ONE (14:50)
[2020-05-18] MEDS ORDERED: BUPIVACAINE 0.5%-EPI 1:200000 PF 30 ML VIAL SUBQ ONE ×2 (14:50)
[2020-05-18] MEDS ORDERED: METOCLOPRAMIDE 10 MG/2 ML VIAL IVP PRN (14:59)
[2020-05-18] MEDS ORDERED: ePHEDrine 50 MG/ML VIAL IVP PRN (14:59)
[2020-05-18] MEDS ORDERED: HYDROmorphone 0.5 MG/0.5 ML SYRINGE IVP PRN (14:59)
[2020-05-18] MEDS ORDERED: ATROPINE ABBOJECT 1 MG/10 ML SYRINGE IVP PRN (14:59)
[2020-05-18] MEDS ORDERED: NALOXONE 0.4 MG/ML VIAL IVP PRN (14:59)
[2020-05-18] MEDS ORDERED: ONDANSETRON 4 MG/2 ML VIAL IVP PRN (14:59)
[2020-05-18] MEDS ORDERED: fentaNYL 100 MCG/2 ML VIAL IVP PRN (14:59)
[2020-05-18] MEDS ORDERED: SCOPOLAMINE PATCH TOP SCH (15:00)
[2020-05-18] MEDS ORDERED: LACTATED RINGERS 1,000 ML IV SCH (15:00)
--- NOTE | 2020-05-18 15:57 | OPERATIVE REPORT ---
Operative Report - General Procedure Date: 05/18/20 Planned Procedure: Laparoscopy, possible laparotomy, possible bowel resection, possible adhesiolysis, biopsy, possible feeding tube Pre-Op Diagnosis: Mesenteric adenopathy Procedure Performed: Mini-laparotomy, with excisional mesenteric lymph node biopsy Post Op Diagnosis: Massively enlarged mesenteric and retroperitoneal lymphadenopathy - Procedure Note Primary Surgeon: Pedro Pablo Alcantara MD Anesthesia Provider: Olvin Arshad CRNA Anesthesia Technique: General ET tube, Local (30 mL 1/2% marcaine) IV Fluids (mL): 800 Estimated Blood Loss (mL): 5 Drain/Tube Type: Other (None.) Complications: None. - Other Other Information/Narrative: The dictation software has been discontinued for this program - please look for detailed operative report to come.
--- NOTE | 2020-05-18 16:16 | ANESTHESIA POST OP EVALUATION ---
Anesthesia Post Eval - Post Anesthesia Eval Vitals: Last Vital Signs Temp 37.1 C 05/18/20 16:10 Pulse 79 05/18/20 16:10 Resp 18 05/18/20 16:10 BP 152/77 H 05/18/20 16:10 Pulse Ox 99 05/18/20 16:10 CV Function Including HR & BP: positive: Stable Pain Control: positive: Satisfactory Nausea & Vomiting: positive: Negative Mental Status: positive: Baseline Respiratory Status: Airway Patent Hydration Status: Satisfactory Anesthesia Complications: positive: None (sore throat)
[2020-05-18] MEDS: BENZOCAINE/MENTHOL LOZENGE MM PRN ×2 (18:07→23:36)
[2020-05-18] MEDS: HYDROcod/ACETAM 5/325 MG TABLET PO PRN ×2 (19:38→23:31)
[2020-05-19 05:37] VITALS: BP 135/69
[2020-05-19] MEDS: HYDROcod/ACETAM 5/325 MG TABLET PO PRN (05:42)
== END 2020-05-19 06:35 | disposition home or self-care (01) ==
LOC: SDS 12:15 → MS2 16:24 → SDS 05-19 06:35
PROVIDERS: ATTEND Surgery
PROC: 07BB0ZX Excision of Mesenteric Lymphatic, Open Approach, Diagnostic (ICD-10-PCS; principal; 2020-05-18 13:30)
DX: I88.0 Nonspecific mesenteric lymphadenitis (principal); E66.9 Obesity, unspecified; Z68.34 Body mass index [BMI] 34.0-34.9, adult; I10 Essential (primary) hypertension; E03.9 Hypothyroidism, unspecified
CPT/HCPCS: 49000; 88307; 88341; 88342; 88360; A9270; J3490; J7120

== ENCOUNTER 2020-06-03 22:45 | Emergency (ER) | payer MEDICARE, OTHER ==
[2020-06-04] MEDS ORDERED: SODIUM CHLORIDE 0.9% 1,000 ML IV STA ×2 (00:16→07:25)
[2020-06-04] MEDS ORDERED: HYDROmorphone 1 MG/ML CARPUJECT IVP STA ×2 (00:16→08:21)
--- NOTE | 2020-06-04 00:16 | ED Physician Documentation ---
History of Present Illness - Stated complaint Stated Complaint: ABD PAIN - Chief complaint Chief Complaint: Abd Pain - History obtained from History obtained from: Patient - Additonal information Additional information: Patient comes emergency department chief complaint of escalating, severe periumbilical and left-sided abdominal pain that started this past evening around 7:00. Patient states that the pain has been getting progressively worse. She has been nauseated but has had no vomiting. The patient has not had any change in her bowel habits that she is noticed. No fevers or chills. No dy suria. 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 She states that she has never had a complete bowel obstruction but has had some slowing of passage of small intestinal contents, secondary to the bulky presence of lymphoma tissue. Patient states that she has been seen a oncologist in [place] and has is currently in the process of being evaluated for chemotherapy. No other complaints at this time. Review of Systems Ten Systems: 10 systems reviewed and negative Constitutional: reports: Reviewed and negative Eyes: reports: Reviewed and negative Ears: reports: Reviewed and negative Nose: reports: Reviewed and negative Throat: reports: Reviewed and negative Cardiac: reports: Reviewed and negative Respiratory: reports: Reviewed and negative GI: reports: Abdominal Pain, Nausea. denies: Constipation : reports: Reviewed and negative Skin: reports: Reviewed and negative Musculoskeletal: reports: Reviewed and negative Neurologic: reports: Reviewed and negative Psychiatric: reports: Reviewed and negative Endocrine: reports: Reviewed and negative Immunocompromised: reports: Reviewed and negative PD PAST MEDICAL HISTORY - Past Medical History Past Medical History: Yes Cardiovascular: Hypertension Respiratory: None Neuro: Migraines Endocrine/Autoimmune: HyPOthyroidism GI: Diverticulitis : None HEENT: None Psych: None Musculoskeletal: Osteoarthritis Derm: None - Past Surgical History Past Surgical History: No General: Cholecystectomy Ortho: Knee replacement /[employer]OR STRIPPING: Hysterectomy - Present Medications Home Medications: Ambulatory Orders Medication Instructions Recorded Confirmed Amitriptyline [Elavil] 25 mg PO DAILY 05/29/18 06/03/20 Calcium/Magnesium/Zinc 1 tab PO DAILY 05/29/18 06/03/20 [Zmfvohg-Fgpjoclpg-Asai Tablet] Estrogens, Conjugated [Premarin] 0.625 mg PO DAILY 05/29/18 06/03/20 Levothyroxine [Synthroid] 100 mcg PO DAILY 05/29/18 06/03/20 Multivitamin [Multiple Vitamins] 1 tab PO DAILY 05/29/18 06/03/20 carvediloL [Carvedilol] 12.5 mg PO DAILY 05/29/18 06/03/20 Cholecalciferol [Vitamin D3] 25 mcg PO DAILY 05/15/20 06/03/20 Omeprazole 20 mg PO DAILY 05/15/20 06/03/20 Docusate Sodium 250Mg Capsule 250 mg PO DAILY #10 capsule 05/18/20 06/03/20 [Colace 250Mg Capsule] HYDROcod/ACETAM 5/325 [[place] 5/325] 1 each PO Q4H #10 tablet 05/18/20 06/03/20 - Allergies Allergies/Adverse Reactions: Allergies Allergy/AdvReac Type Severity Reaction Status Date / Time morphine AdvReac Emesis Verified 06/03/20 22:55 shellfish derived AdvReac Emesis Verified 06/03/20 22:55 - Social History Does the pt smoke?: No Smoking Status: Never smoker Does the pt drink ETOH?: No Does the pt have substance abuse?: No - Immunizations Immunizations are current?: Yes PD ED PE NORMAL - Vitals Vital signs reviewed: Yes - General General: Alert and oriented X 3, Well developed/nourished, Other (The patient appears moderately uncomfortable, otherwise in no apparent distress.) - HEENT HEENT: Atraumatic, PERRL, EOMI, Moist mucous membranes - Neck Neck: Supple, no meningeal sign - Cardiac Cardiac: RRR, No murmur - Respiratory Respiratory: Clear bilaterally - Abdomen Abdomen: Soft, Non distended, Other (Notable tenderness in the periumbilical and upper and lower quadrants of the left side. No rebound or guarding.) - Back Back: No CVA TTP - Derm Derm: Normal color, Warm and dry, No rash - Extremities Extremities: No deformity, No edema, No calf tenderness / cord - Neuro Neuro: Alert and oriented X 3 - Psych Psych: Normal mood, Normal affect Results - Vitals Vitals: Vital Signs - 24 hr 06/03/20 06/03/20 06/04/20 22:50 22:55 00:55 Temperature 36.4 C L 36.4 C L 36.2 C L Heart Rate 106 H 106 H 75 Respiratory 20 20 18 Rate Blood Pressure 134/89 H 134/89 H 132/82 H O2 Saturation 96 96 97 06/04/20 06/04/20 06/04/20 02:00 03:05 04:37 Temperature 36.5 C 36.5 C 36.5 C Heart Rate 91 99 94 Respiratory 16 16 16 Rate Blood Pressure 152/77 H 170/80 H 132/72 H O2 Saturation 95 99 95 06/04/20 06:00 Temperature 36.5 C Heart Rate 89 Respiratory 16 Rate Blood Pressure 133/77 H O2 Saturation 95 Oxygen O2 Source Room air - Labs Labs: Laboratory Tests 06/03/20 06/03/20 06/04/20 23:18 23:18 02:16 WBC 11.6 H RBC 4.81 Hgb 11.9 L Hct 39.8 MCV 82.7 MCH 24.7 L MCHC 29.9 L RDW 13.4 Plt Count 516 H MPV 9.3 Neut # (Auto) 8.9 H Lymph # (Auto) 1.7 [place] # (Auto) 0.7 Eos # (Auto) 0.2 Baso # (Auto) 0.0 Absolute Nucleated RBC 0.00 Nucleated RBC % 0.0 Sodium 137 Potassium 4.2 Chloride 100 L Carbon Dioxide 21 Anion Gap 16.0 H BUN 20 Creatinine 1.0 Estimated GFR (MDRD) 54 L Glucose 167 H Calcium 10.4 H Total Bilirubin 0.3 AST 29 ALT 15 Alkaline Phosphatase 97 Total Protein 8.1 Albumin 3.8 Globulin 4.3 H Albumin/Globulin Ratio 0.9 L Lipase 36 Nasal Adenovirus (PCR) NOT DETECTED Nasal B. parapertussis DNA (PCR) NOT DETECTED Nasal Coronavir 229E PCR NOT DETECTED Nasal Coronavir HKU1 PCR NOT DETECTED Nasal Coronavir NL63 PCR NOT DETECTED Nasal Coronavir OC43 PCR NOT DETECTED Nasal Enterovir/Rhinovir PCR NOT DETECTED Nasal Influenza B PCR NOT DETECTED Nasal Influenza A PCR NOT DETECTED Nasal Parainfluen 1 PCR NOT DETECTED Nasal Parainfluen 2 PCR NOT DETECTED Nasal Parainfluen 3 PCR NOT DETECTED Nasal Parainfluen 4 PCR NOT DETECTED Nasal RSV (PCR) NOT DETECTED Nasal B.pertussis DNA PCR NOT DETECTED Nasal C.pneumoniae (PCR) NOT DETECTED Vasquez Human Metapneumo PCR NOT DETECTED Nasal M.pneumoniae (PCR) NOT DETECTED Nasal SARS-CoV-2 (PCR) NOT DETECTED - Rads (name of study) CT abd/pelvis Radiology: Prelim report reviewed, EMP read indepedently, See rad report (Low-grade mechanical small bowel obstruction associated with thick-walled small bowel segment at distal jejunum worrisome for lymphoma involving small bowel; multiple mesenteric masses consistent with lymphoma.) PD MEDICAL DECISION MAKING - ED course Complexity details: reviewed old records, reviewed results, re-evaluated patient, considered differential, d/w patient ED course: The patient was worked up with laboratory studies and CT of the abdomen and pelvis, which showed a complete small bowel obstruction with transition point at an area of thickened small bowel wall which is felt to be the results of the patient's lymphoma. Multiple enlarged lymph nodes were also noted on scan. Initially, I spoke with Dr. Campos, who is on-call for surgery and he agreed to admit the patient to his service. The initial plan was to place an NG tube and decompress the patient's upper digestive system in hopes that the obstruction would clear itself. If not, plan was to take patient to the OR potentially. When I went to speak with the patient, she did however state that she has actually been a patient of Dr. Nava of surgery and that he has been very instrumental in diagnosing the lymphoma and facilitating her ongoing care. As such I did give him a call and discuss the patient's situation with him. He felt very strongly that the patient should be transferred to a facility that has oncology service and that the patient could be managed nonoperatively if able to have expedited chemotherapy, which would rapidly debulk the lymphoma and resolve the obstruction. I ultimately, Did speak with Dr. Cavazos of surgery at [facility] in [place], and she did agree to accept the patient in transfer to her service. We did attempt to place an NG tube, but the patient has a longstanding history of deviated we were unable to pass the tube on either side. The patient declined further attempts. The patient was not having ongoing vomiting, and was receiving IV fluids in the emergency department. She has been kept n.p.o. At this point in time she is waiting transfer. Departure - Departure Disposition: 02 Transfer Acute Care Hosp Clinical Impression: Small bowel obstruction Lymphoma Qualifiers: Lymphoma type: unspecified type Lymphoma site: intra-abdominal nodes Qualified Code(s): C85.93 - Non-Hodgkin lymphoma, unspecified, intra-abdominal lymph nodes Condition: Serious
[2020-06-04 00:31] LABS: BASOPHILS % (AUTO) 0.3 %; EOSINOPHILS # (AUTO) 0.2 10^3/uL (0.0-0.7); EOSINOPHILS % (AUTO) 1.5 %; HGB - HEMOGLOBIN 11.9 g/dL (12.0-16.0); LYMPHOCYTES # (AUTO) 1.7 10^3/uL (1.5-3.5); LYMPHOCYTES % (AUTO) 14.8 %; MEAN CORPUSCULAR HEMOGLOBIN 24.7 pg (27.0-31.0); MEAN CORPUSCULAR HGB CONC 29.9 g/dL (32.0-36.0); MEAN CORPUSCULAR VOLUME 82.7 fL (81.0-99.0); MEAN PLATELET VOLUME 9.3 fL (7.9-10.8); MONOCYTES # (AUTO) 0.7 10^3/uL (0.0-1.0); MONOCYTES % (AUTO) 6.4 %; NEUTROPHILS # (AUTO) 8.9 10^3/uL (1.5-6.6); NEUTROPHILS % (AUTO) 76.7 %; PLT - PLATELET COUNT 516 10^3/uL (130-450); RED BLOOD COUNT 4.81 10^6/uL (4.20-5.40); RED CELL DISTRIBUTION WIDTH 13.4 % (12.0-15.0); WHITE BLOOD COUNT 11.6 x10^3/uL (4.8-10.8)
[2020-06-04 00:41] LABS: ALBUMIN 3.8 g/dL (3.2-5.5); ALBUMIN/GLOBULIN RATIO 0.9 (1.0-2.2); BILIRUBIN,TOTAL 0.3 mg/dL (0.2-1.0); CALCIUM 10.4 mg/dL (8.5-10.3); TOTAL PROTEIN 8.1 g/dL (6.7-8.2)
[2020-06-04] MEDS ORDERED: IOVERSOL 320 100 ML VIAL IVP ONE ×2 (00:50→01:37)
[2020-06-04] MEDS ORDERED: HYDROmorphone 2 MG/ML VIAL IVP STA (02:58)
[2020-06-04 03:11] LABS: C. PNEUMONIAE- RESP PCR PANEL NOT DETECTED
[2020-06-04 06:34] VITALS: BP 133/77
[2020-06-04] MEDS ORDERED: ONDANSETRON 4 MG/2 ML VIAL IVP STA (07:46)
--- NOTE | 2020-06-04 07:54 | ED Physician Documentation ---
ED Addendum - Addendum Addendum: 06/04/20 07:52 Patient endorsed to me by Dr. Valenzuela, awaiting transport to [facility] for debulking chemotherapy versus surgery for SBO. LORNA signed, accepting physician aware. Patient was in no acute distress upon my examination, however about 50 minutes after I left the room she did have an episode of nonbloody nonbilious nausea vomiting. Additional dose of Zofran given through IV.
--- NOTE | 2020-06-04 09:30 | CT Report ---
PROCEDURE: Abdomen/Pelvis W INDICATIONS: abdominal pain CONTRAST: IV CONTRAST: Optiray 320 ml: 100 PO CONTRAST: *NO PO CONTRAST TECHNIQUE: After the administration of intravenous contrast, 5 mm thick sections acquired from the diaphragms to the symphysis. 5 mm thick coronal and sagittal reformats were acquired. For radiation dose reducti on, the following was used: automated exposure control, adjustment of mA and/or kV according to vero ent size. COMPARISON: None. FINDINGS: Image quality: Excellent. ABDOMEN: Lung bases: There is a new 1.7 cm diameter consolidative mass within the anterior right lung base. Tr lanny airspace opacities are also present at the inferior lingular base. Solid organs: The liver is normal in size and enhancement. The spleen measures 14.6 cm in length. Gal lbladder is surgically absent Biliary system is non dilated. Pancreas enhances normally. No adrena l nodules. Kidneys demonstrate normal size and enhancement, without hydronephrosis. There are bilate ral low-density cortical cystic lesions. Peritoneum and bowel: The stomach is partially fluid filled. The proximal small bowel is decompressed . There is moderate dilatation of the midportion of the small bowel which is fluid-filled. The proxim al transition point is likely located within the left mid abdomen (series 6/image 19). The distal tra nsition point from dilated bowel to decompressed bowel is likely within the hypogastric region where there is solid appearing stool within the bowel, wall thickening, and perienteric fat stranding (seri es 6/image 31 and series 3/image 64). The downstream small bowel is decompressed to the level of the cecum. The appendix is not visualized. No right lower quadrant fat stranding or free fluid. There are scattered sigmoid colon diverticular outpouchings. No wall thickening or pericolonic fat stranding t o suggest acute diverticulitis. There is trace low-density fluid within the pelvis. Nodes and vessels: Extensive, confluent adenopathy is redemonstrated at the mesenteric root. Enhancin g mesenteric mass is redemonstrated and appears similar in size to the study dated 04/13/2020. Of note , the distal aspect of the bowel obstruction appears slightly inferior to the antonieta mass. Miscellaneo us: No ventral hernias. A subcentimeter subcutaneous fluid collection is present inferior to the umb ilicus which is new when compared with the study dated 04/13/2020. PELVIS: Genitourinary: Bladder wall thickness is normal. Miscellaneous: No inguinal adenopathy. There is a small fat-containing right inguinal hernia. Bones: No suspicious bony lesions. No vertebral body compression fractures. IMPRESSION: 1. Bowel obstruction within the mid small bowel with wall thickening and perienteric fat stranding at the distal aspect of the obstruction. Findings suggest lymphomatosis involvement of the bowel; howev er synchronous colonic neoplasm or inflammatory changes could also cause this appearance. 2. Unchanged appearance of extensive mesenteric root adenopathy and enhancing mesenteric lesions cons istent with the given diagnosis of lymphoma. 3. New fluid collection or periumbilical soft tissue nodule which may be associated with the lymphoma . 4. Splenomegaly, as before. 5. Diverticulosis. No acute diverticulitis. These findings are concordant with the overnight interpretation. Reviewed by: Paola Luke MD on 06/04/2020 8:29 AM [facility] Approved by: Paola Luke MD on 06/04/2020 8:29 AM [facility] Station ID: [id number]
== END 2020-06-04 09:39 | disposition short-term general hospital (02) ==
LOC: ED 22:45
DX: K56.691 Other complete intestinal obstruction (principal); C85.13 Unspecified B-cell lymphoma, intra-abdominal lymph nodes; Z20.828 Contact with and (suspected) exposure to other viral communicable diseases; J34.2 Deviated nasal septum; I10 Essential (primary) hypertension
CPT/HCPCS: 36415; 74177; 80053; 83690; 85025; 87631; 96374; 96375; 96376; 99285; J1170; Q9967; 0202U

== ENCOUNTER 2020-06-19 18:06 | Inpatient (IN) | payer MEDICARE, OTHER ==
[2020-06-19 18:43] LABS: BASOPHILS % (AUTO) 0.4 %; EOSINOPHILS % (AUTO) 0.1 %; HGB - HEMOGLOBIN 9.6 g/dL (12.0-16.0); LYMPHOCYTES % (AUTO) 7.9 %; MEAN CORPUSCULAR HEMOGLOBIN 24.3 pg (27.0-31.0); MEAN PLATELET VOLUME 9.3 fL (7.9-10.8); MONOCYTES % (AUTO) 10.8 %; NEUTROPHILS % (AUTO) 73.5 %; PLT - PLATELET COUNT 431 10^3/uL (130-450); RED BLOOD COUNT 3.95 10^6/uL (4.20-5.40); RED CELL DISTRIBUTION WIDTH 13.3 % (12.0-15.0); WHITE BLOOD COUNT 8.3 x10^3/uL (4.8-10.8)
[2020-06-19 18:46] LABS: ABNORMAL LYMPHS % (MANUAL) 0 %
[2020-06-19 18:54] LABS: ALBUMIN 2.8 g/dL (3.2-5.5); ALBUMIN/GLOBULIN RATIO 0.6 (1.0-2.2); BILIRUBIN,TOTAL 0.5 mg/dL (0.2-1.0); CALCIUM 9.8 mg/dL (8.5-10.3); CREATININE 0.8 mg/dL (0.4-1.0); TOTAL PROTEIN 7.5 g/dL (6.7-8.2)
--- NOTE | 2020-06-19 19:10 | ED Physician Documentation ---
History of Present Illness - Stated complaint Stated Complaint: WEAK,WON'T EAT - Chief complaint Chief Complaint: General - History obtained from History obtained from: Patient - History of Present Illness Timing: Today Pain level max: 0 Pain level now: 0 - Additonal information Additional information: Patient is a 75-year-old female who presents to the emergency department today with weakness. She has also had a dry cough for the past several days. Recently admitted to [facility] in [place] for B-cell lymphoma. She is undergoing chemotherapy. She states she developed a cough while she was in the hospital. Worse with exertion, better with rest. She states she is not currently on antibiotics. No fevers. No chills. No diarrhea. No constipation. No urinary symptoms. Review of Systems Ten Systems: 10 systems reviewed and negative Constitutional: denies: Fever, Chills Nose: denies: Rhinorrhea / runny nose, Congestion Throat: denies: Sore throat Cardiac: denies: Chest pain / pressure Respiratory: reports: Dyspnea, Cough, Wheezing GI: denies: Vomiting, Diarrhea Skin: denies: Rash Musculoskeletal: denies: Neck pain, Back pain Neurologic: denies: Headache PD PAST MEDICAL HISTORY - Past Medical History Past Medical History: Yes Cardiovascular: Hypertension Respiratory: None Neuro: Migraines Endocrine/Autoimmune: HyPOthyroidism GI: Diverticulitis FIELD TECHNICIAN: None : None HEENT: None Psych: None Musculoskeletal: Osteoarthritis Derm: None Other Past Medical History: lymphoma Dx Apr 2020 - Past Surgical History Past Surgical History: No General: Cholecystectomy Ortho: Knee replacement /FIELD TECHNICIAN: Hysterectomy - Present Medications Home Medications: Ambulatory Orders Medication Instructions Recorded Confirmed Amitriptyline [Elavil] 25 mg PO DAILY 05/29/18 06/13/20 Calcium/Magnesium/Zinc 1 tab PO DAILY 05/29/18 06/13/20 [Kjbbhxr-Eltrwshrt-Wsok Tablet] Estrogens, Conjugated [Premarin] 0.625 mg PO DAILY 05/29/18 06/13/20 Levothyroxine [Synthroid] 100 mcg PO DAILY 05/29/18 06/13/20 Multivitamin [Multiple Vitamins] 1 tab PO DAILY 05/29/18 06/13/20 carvediloL [Carvedilol] 12.5 mg PO DAILY 05/29/18 06/13/20 Cholecalciferol [Vitamin D3] 25 mcg PO DAILY 05/15/20 06/13/20 Omeprazole 20 mg PO DAILY 05/15/20 06/13/20 Docusate Sodium 250Mg Capsule 250 mg PO DAILY #10 capsule 05/18/20 06/13/20 [Colace 250Mg Capsule] HYDROcod/ACETAM 5/325 [[place] 5/325] 1 each PO Q4H #10 tablet 05/18/20 06/13/20 Lidocaine/Prilocain 2.5% Cream 5 applic TOP UD #1 tube 06/14/20 [Emla 2.5% Cream] Olanzapine [Zyprexa] 5 mg PO UD #20 tablet 06/14/20 Prochlorperazine Maleate 10 mg PO Q6HR PRN #30 tab 06/14/20 [Compazine] predniSONE [Prednisone] 100 mg PO UD #25 tab 06/14/20 - Allergies Allergies/Adverse Reactions: Allergies Allergy/AdvReac Type Severity Reaction Status Date / Time morphine AdvReac Emesis Verified 06/19/20 18:13 shellfish derived AdvReac Emesis Verified 06/19/20 18:13 - Social History Does the pt smoke?: No Smoking Status: Never smoker Does the pt drink ETOH?: No Does the pt have substance abuse?: No - Immunizations Immunizations are current?: Yes PD ED PE NORMAL - Vitals Vital signs reviewed: Yes - General General: Alert and oriented X 3, No acute distress, Well developed/nourished - HEENT HEENT: Moist mucous membranes - Neck Neck: Supple, no meningeal sign - Cardiac Cardiac: RRR - Respiratory Respiratory: No respiratory distress, Other (dimished B with wheezing.) - Abdomen Abdomen: Soft, Non tender, Non distended - Derm Derm: Warm and dry, No rash - Extremities Extremities: No calf tenderness / cord - Neuro Neuro: Alert and oriented X 3 - Psych Psych: Normal mood, Normal affect Results - Vitals Vitals: Vital Signs - 24 hr 06/19/20 06/19/20 06/19/20 18:13 18:29 18:50 Temperature 36.7 C 36.8 C Heart Rate 98 104 H 93 Respiratory 24 32 H 28 H Rate Blood Pressure 137/88 H 180/117 H 141/73 H O2 Saturation 86 L 96 96 06/19/20 06/19/20 06/19/20 20:00 20:21 20:30 Temperature Heart Rate 87 87 84 Respiratory 30 H 24 26 H Rate Blood Pressure 152/79 H 145/79 H O2 Saturation 95 94 Oxygen O2 Source Nasal cannula - Labs Labs: Laboratory Tests 06/19/20 06/19/20 06/19/20 18:30 18:30 18:30 WBC 8.3 RBC 3.95 L Hgb 9.6 L Hct 32.0 L MCV 81.0 MCH 24.3 L MCHC 30.0 L RDW 13.3 Plt Count 431 MPV 9.3 Neut # (Auto) Not Reportable Lymph # (Auto) Not Reportable [place] # (Auto) Not Reportable Eos # (Auto) Not Reportable Baso # (Auto) Not Reportable Absolute Nucleated RBC Not Reportable Total Counted 100 Band Neuts % (Manual) 24 H Reactive Lymphs % (Man) 1 Abnorm Lymph % (Manual) 0 Nucleated RBC % Not Reportable Neutrophils # (Manual) 6.6 Lymphocytes # (Manual) 0.4 L Monocytes # (Manual) 1.2 H Eosinophils # (Manual) 0.0 Basophils # (Manual) 0.0 Differential Comment MANUAL DIFFERENTIAL Platelet Estimate NORMAL (130-450,000) Platelet Morphology NORMAL APPEARANCE RBC Morph Micro Appear NORMAL APPEARANCE Sodium 139 Potassium 3.3 L Chloride 91 L Carbon Dioxide 29 Anion Gap 19.0 H BUN 18 Creatinine 0.8 Estimated GFR (MDRD) 70 L Glucose 222 H Lactic Acid 1.2 Calcium 9.8 Total Bilirubin 0.5 AST 44 H ALT 40 Alkaline Phosphatase 151 H Total Protein 7.5 Albumin 2.8 L Globulin 4.7 H Albumin/Globulin Ratio 0.6 L Nasal Adenovirus (PCR) Nasal B. parapertussis DNA (PCR) Nasal Coronavir 229E PCR Nasal Coronavir HKU1 PCR Nasal Coronavir NL63 PCR Nasal Coronavir OC43 PCR Nasal Enterovir/Rhinovir PCR Nasal Influenza B PCR Nasal Influenza A PCR Nasal Parainfluen 1 PCR Nasal Parainfluen 2 PCR Nasal Parainfluen 3 PCR Nasal Parainfluen 4 PCR Nasal RSV (PCR) Nasal B.pertussis DNA PCR Nasal C.pneumoniae (PCR) [place] Human Metapneumo PCR Nasal M.pneumoniae (PCR) Nasal SARS-CoV-2 (PCR) 06/19/20 18:40 WBC RBC Hgb Hct MCV MCH MCHC RDW Plt Count MPV Neut # (Auto) Lymph # (Auto) [place] # (Auto) Eos # (Auto) Baso # (Auto) Absolute Nucleated RBC Total Counted Band Neuts % (Manual) Reactive Lymphs % (Man) Abnorm Lymph % (Manual) Nucleated RBC % Neutrophils # (Manual) Lymphocytes # (Manual) Monocytes # (Manual) Eosinophils # (Manual) Basophils # (Manual) Differential Comment Platelet Estimate Platelet Morphology RBC Morph Micro Appear Sodium Potassium Chloride Carbon Dioxide Anion Gap BUN Creatinine Estimated GFR (MDRD) Glucose Lactic Acid Calcium Total Bilirubin AST ALT Alkaline Phosphatase Total Protein Albumin Globulin Albumin/Globulin Ratio Nasal Adenovirus (PCR) NOT DETECTED Nasal B. parapertussis DNA (PCR) NOT DETECTED Nasal Coronavir 229E PCR NOT DETECTED Nasal Coronavir HKU1 PCR NOT DETECTED Nasal Coronavir NL63 PCR NOT DETECTED Nasal Coronavir OC43 PCR NOT DETECTED Nasal Enterovir/Rhinovir PCR NOT DETECTED Nasal Influenza B PCR NOT DETECTED Nasal Influenza A PCR NOT DETECTED Nasal Parainfluen 1 PCR NOT DETECTED Nasal Parainfluen 2 PCR NOT DETECTED Nasal Parainfluen 3 PCR NOT DETECTED Nasal Parainfluen 4 PCR NOT DETECTED Nasal RSV (PCR) NOT DETECTED Nasal B.pertussis DNA PCR NOT DETECTED Nasal C.pneumoniae (PCR) NOT DETECTED [place] Human Metapneumo PCR NOT DETECTED Nasal M.pneumoniae (PCR) NOT DETECTED Nasal SARS-CoV-2 (PCR) NOT DETECTED - Rads (name of study) cxr Radiology: Prelim report reviewed, EMP read contemporaneously, See rad report PD MEDICAL DECISION MAKING - ED course Complexity details: reviewed results, re-evaluated patient, considered differential, d/w patient, d/w literacy consultant ED course: Patient is a 75-year-old female who presents to the emergency department with cough and congestion today. She is hypoxic. She declined denies any history of any lung disorders. No fevers. She states she developed a cough while at [facility] in [place]. The discharge summary was reviewed from [facility] in [place]. No mention of a cough. Her x-ray appears consistent with a viral disease. Respiratory panel is negative including Covid screen. Given nebulizer treatments and feels better but is continuing to remain hypoxic, 86% on RA. does not use oxygen at home. Discussed with Dr. Haque, hospitalist who accepts. IMPRESSION: Diffuse interstitial prominence with mild perihilar airway thickening likely related to infectious versus inflammatory process with viral or atypical organism most likely. No focal consolidation. Recommend follow-up chest radiograph 4-6 weeks after treatment to document resolution of findings. Departure - Departure Disposition: [facility] DC/Xfer Clinical Impression: Hypoxia, Viral pneumonitis B-cell lymphoma Qualifiers: B-cell lymphoma type: unspecified B-cell Lymphoma site: unspecified region Qualified Code(s): C85.10 - Unspecified B-cell lymphoma, unspecified site Condition: Stable
--- NOTE | 2020-06-19 19:24 | XRAY Report ---
PROCEDURE: Chest 1 View X-Ray INDICATIONS: cough, congestion TECHNIQUE: One view of the chest was acquired. COMPARISON: 06/13/2020. FINDINGS: Surgical changes and devices: None. Lungs and pleura: Diffuse interstitial prominence. Minimal streaky bibasilar opacities. No focal con solidation. No pleural effusions or pneumothorax. Mild perihilar airway thickening. Mediastinum: Mediastinal contours appear normal. Heart size is normal. Bones and chest wall: No suspicious bony lesions. Overlying soft tissues appear unremarkable. IMPRESSION: Diffuse interstitial prominence with mild perihilar airway thickening likely related to infectious ve rsus inflammatory process with viral or atypical organism most likely. No focal consolidation. Recommend follow-up chest radiograph 4-6 weeks after treatment to document resolution of findings. Reviewed by: Rigoberto Viveros MD on 06/19/2020 6:23 PM [facility] Approved by: Rigoberto Viveros MD on 06/19/2020 6:23 PM [facility] Station ID: [id number]
[2020-06-19 19:50] LABS: BAND NEUTROPHILS % (MANUAL) 24 %; DIFFERENTIAL COMMENT MANUAL DIFFERENTIAL; LYMPHOCYTES # (MANUAL) 0.4 10^3/uL (1.5-3.5); LYMPHOCYTES % (MANUAL) 4 %; MONOCYTES # (MANUAL) 1.2 10^3/uL (0.0-1.0); PLATELET ESTIMATE, MANUAL NORMAL (130-450,000) (NORMAL); PLATELET MORPHOLOGY NORMAL APPEARANCE (NORMAL); RBC MORPHOLOGY (MULTIPLE) NORMAL APPEARANCE (NORMAL)
[2020-06-19] MEDS ORDERED: ALBUTEROL 1 PUFF INH STA (19:52)
[2020-06-19 20:38] LABS: C. PNEUMONIAE- RESP PCR PANEL NOT DETECTED
[2020-06-19] MEDS ORDERED: IPRATROPIUM/ALBUTEROL 3 ML NEB INH STA (20:48)
[2020-06-19] MEDS ORDERED: predniSONE 20 MG TABLET PO STA (20:48)
[2020-06-19] MEDS ORDERED: SODIUM CHLORIDE 0.9% 1,000 ML IV STA (20:52)
[2020-06-19] MEDS ORDERED: ONDANSETRON 4 MG/2 ML VIAL IVP PRN (22:20)
[2020-06-19] MEDS ORDERED: HYDROcod/ACETAM 5/325 MG TABLET PO PRN (22:20)
[2020-06-19] MEDS ORDERED: ACETAMINOPHEN 325 MG TABLET PO PRN (22:20)
[2020-06-19] MEDS ORDERED: IOVERSOL 320 100 ML VIAL IVP ONE (23:25)
[2020-06-19] MEDS ORDERED: POTASSIUM CHLORIDE 20 MEQ TABLET PO ONE (23:42)
[2020-06-19] MEDS: IPRATROPIUM/ALBUTEROL 3 ML NEB INH SCH (23:53)
[2020-06-19] MEDS: PIPERACILLIN/TAZOBACTAM 3.375 GM in SODIUM CHLORIDE 0.9% MINIBAG 100 ML IV SCH (23:54)
[2020-06-19] MEDS: SODIUM CHLORIDE FLUSH 0.9% 10 ML SYRINGE IVP SCH (23:54)
--- NOTE | 2020-06-20 02:11 | HISTORY & PHYSICAL EXAMINATION ---
DATE OF SERVICE: 06/19/2020 Physician: Leticia Haque MD CHIEF COMPLAINT: Shortness of breath. HISTORY OF PRESENT ILLNESS: Patient is a 75-year-old chronically ill, white female who was recently diagnosed with diffuse large B-cell lymphoma. Briefly, she had progressively worsening abdominal pain since the summer and subsequently on CT scan, she was found with lymphadenopathy and imaging consistent with lymphoma; diagnosis was established per biopsy. Subsequently, she developed bowel obstruction and was seen at [facility] ER on 06/04/2020. It seems that the bowel obstruction was secondary to abdominal involvement with lymphoma; therefore, the patient was transferred to [place] requiring urgent chemotherapy plus/minus surgery. Reviewing the discharge summary from [facility], she was hospitalized between 06/04/2020- 06/12/2020. She responded well for NG tube placement, IV hydration, bowel rest and octreotide, small bowel obstruction resolving. She did not require surgery. She had a PICC line and started to receive chemotherapy, which was R-CHOP. Per the discharge note, she tolerated the chemotherapy well; however, the patient herself reports that she actually had ongoing symptoms of nausea, vomiting, shakes and felt weak and unwell. The first chemotherapy was given on 06/06/2020 and subsequently, the patient was discharged to followup with outpatient oncology. Besides the chemotherapy, she received IV steroid and also received GCSF. The patient was discharged on 06/12/2020. Since discharge, had followup visit with oncology and port placement was planned to continue chemotherapy. Reviewing the oncology note, it seems the next chemotherapy cycle was planned for 06/27/2020. The patient was referred to the surgeon, Dr. Alcantara, to receive a port. Reviewing the records, it is also pertinent that prior to the start of chemotherapy, the patient had a baseline echocardiogram on 05/28/2020 which did not show congestive heart failure, ejection fraction was 66%. Further review of the record shows that the patient's previous imaging, which included the lung, showed some infiltrates, which were questioned to be inflammatory, lymphoma related versus infectious. Regarding the circumstances leading to current admission, the patient had been home following hospital discharge for about a week. She reported irregular bowel movements, but passing small amounts of stool. She did not have further abdominal pain, nausea or vomiting; however, remained weak and had poor appetite. She started to have cough with sputum production while hospitalized and initially she felt that the cough was triggered by the NG tube placement she had for bowel obstruction. However, after NG tube was removed, she still had cough and the cough worsened during the past week. The patient does not report episodes of dysphagia and does not remember obvious aspiration event. She denied fever, did not report chest pain. The cough got to the point that she felt she could not breathe. She also reported that both the cough and the recent NG tube bothered her eye and she had some inflammation and bloodshot eyes, which had been improving during the past week, but the left eye still had some visible change. She reported her vision was blurry about a week ago, but not any longer. Upon presentation to the ER, the patient was noted with hypoxia. Her oxygen saturation was 88% on room air and she had respiratory rate in the 30s. She required 2 liters nasal cannula to maintain oxygen saturation above 90. Notably, she does not have history of oxygen dependence. Initial vital signs included heart rate about 100, but subsequently decreased to the 80s, blood pressure 150/80, temperature was 36.8. The ER workup included a chest x-ray, which showed diffuse interstitial prominence and perihilar airway thickening, which was questioned to be infectious versus inflammatory. There was no focal consolidation. White blood cell count was normal. Hemoglobin 9.6, platelet count 430. There was bandemia at 24. Chemistry panel showed normal renal function, normal troponin, alkaline phosphatase 151, AST 44, glucose 220, normal lactic acid, potassium 3.3. EKG was nonischemic. During the ER stay, the patient got IV hydrated, received small volume nebulizer and steroid; regardless, she remained with low oxygen saturation. Therefore, admission was requested for hypoxic respiratory failure. PAST MEDICAL HISTORY 1. Recently diagnosed diffuse large B-cell lymphoma, status post chemotherapy. For details I refer to outpatient oncology notes and recent discharge summary from [facility]. 2. Hypertension. 3. Hypothyroidism. 4. Gastroesophageal reflux/gastritis. 5. Depression/insomnia. 6. Small bowel obstruction in May 2020 secondary to mesenteric mass in the setting of B-cell lymphoma. 7. History of fecal impaction. 8. Anemia. CODE STATUS: Although prior code status was listed as full code, the patient, on admission, confirmed that she does not wish to receive life support in case of emergency. Therefore, her code status is DO NOT RESUSCITATE. She is in the process of filling out legal documents and she will designate her son to be her power of regulatory attorney. SOCIAL HISTORY: The patient is a nonsmoker. She had been fully functional with instrumental activities of daily living; she used to drive and just recently stopped after she started chemotherapy. She walks without assistive device. FAMILY HISTORY: Negative for cancer, positive for heart disease. REVIEW OF SYMPTOMS: Please see pertinent positives listed above at history of present illness. A 12-system review was completed, there was no additional symptom. OUTPATIENT MEDICATIONS: Medication list is being updated per the available record. The patient was on 1. Prednisone. 2. Coreg. 3. Compazine 4. Omeprazole. 5. Zyprexa. 6. Multivitamin. 7. Levothyroxine. 8. [place]. 9. Premarin. 10. Docusate. 11. Vitamin D. 12. Calcium. 13. Magnesium. 14. Zinc 15. Amitriptyline. PHYSICAL EXAMINATION VITAL SIGNS: Please see listed above at history of present illness. GENERAL: The patient is a well-developed, chronically ill-appearing female, who also appeared acutely ill with increased work of breathing. She appeared frail and weak. SKIN: With pallor. No jaundice. LYMPHATIC: 1+ pitting edema on the lower extremities above the ankle. CARDIOVASCULAR: S1, S2. Regular. No obvious murmur. RESPIRATORY: Decreased air entry with crackles posteriorly. Increased work of breathing with respiratory rate in the mid 20s to low 30s, requiring supplemental oxygen. ABDOMEN: Obese, nontender, nondistended. Bowel tones present. NEUROLOGIC: Alert, oriented, nonfocal. PSYCHIATRIC: Cooperative. Left eye with erythema, but normal vision. MUSCULOSKELETAL: Appears with signs of weight loss and decreased muscle mass. ASSESSMENT AND PLAN: Patient is a 75-year-old female with recent diagnosis of diffuse large B-cell lymphoma, recently started chemotherapy, and with complication of small bowel obstruction. She was released from [facility] about a week ago and today presents with acute hypoxic respiratory failure. DIAGNOSES PROBLEM BY PROBLEM/ACTIVE ISSUES 1. Acute hypoxic respiratory failure. a. Should be considered healthcare-acquired pneumonia/bronchitis. b. Bronchospastic response is possible, but there is no wheezing, therefore less likely. c. Aspiration is high in the differential with recent bowel obstruction NG tube. d. Congestive heart failure could develop as the adverse effect of chemotherapy. Patient had a normal echocardiogram prior to receiving chemotherapy. So far, she only received one cycle, but still needs to be ruled out for developing CHF. e. Pulmonary embolism is high in the differential diagnosis with recent hospitalization, immobility and history of malignancy will need to be ruled out. 2. Diffuse large B-cell lymphoma. 3. Microcytic anemia. Baseline creatinine, no bleeding complication. 4. Chronic medical problems include hypertension, hypothyroidism, depression/insomnia and gastritis, appear stable. PLAN AND ORDERS 1. The patient is admitted as inpatient. We will continue supportive care with oxygen, small volume nebulizers. Incentive spirometry. Respiratory care. Home oxygen evaluation prior to discharge. Physical therapy, occupational therapy and case management consult for discharge planning. 2. CT angiography to rule out pulmonary embolism and to further evaluate for pulmonary infiltrates. 3. Swallow evaluation. In the meantime, dysphagia diet. 4. Zosyn for bronchitis versus healthcare-acquired pneumonia empirically. Blood cultures. Sputum cultures. MRSA screen. 5. DO NOT RESUSCITATE. 6. Echocardiogram will be repeated to rule out post-chemotherapy CHF. 7. Regarding steroid therapy, for now I ordered inhaled steroid. There was no wheezing; therefore, I did not order systemic, but depending on the clinical course, systemic steroid can be considered. 8. Deep venous thrombosis prophylaxis with Lovenox. If CT angiography shows PE, we will switch to full dose anticoagulation. 9. Regarding acute coronary syndrome, the patient had negative troponin and nonischemic EKG. ATTESTATION: I certify that the patient meets inpatient criteria and the reasonable expectation is for her to be hospitalized for more than 2 midnights, but she would discharge within 96 hrs. Time spent in the care of this patient was 70 minutes. TD: 06/19/2020 23:37 RADHA
[2020-06-20] MEDS: SODIUM CHLORIDE FLUSH 0.9% 10 ML SYRINGE IVP SCH ×2 (05:10→16:29)
[2020-06-20] MEDS: PIPERACILLIN/TAZOBACTAM 3.375 GM in SODIUM CHLORIDE 0.9% MINIBAG 100 ML IV SCH ×3 (05:10→16:28)
[2020-06-20] MEDS: BUDESONIDE 0.5 MG/2 ML NEB INH SCH ×2 (07:15→19:00)
[2020-06-20] MEDS: IPRATROPIUM/ALBUTEROL 3 ML NEB INH SCH ×4 (07:15→19:00)
--- NOTE | 2020-06-20 07:20 | CT Report ---
PROCEDURE: ANGIO CHEST W/WO INDICATIONS: hypoxia r/o PE or PNA CONTRAST: IV CONTRAST: Isovue 370 ml: 80 PO CONTRAST: *NO PO CONTRAST TECHNIQUE: After the administration of intravenous contrast, 2 mm thick sections acquired from the pulmonary api rory to the posterior costophrenic angles. 3-dimensional maximum intensity projection (MIP) coronal a nd sagittal reformats were then acquired through the thorax. For radiation dose reduction, the follow ing was used: automated exposure control, adjustment of mA and/or kV according to patient size. COMPARISON: Chest x-ray 06/19/2020 FINDINGS: Image quality: Excellent. Pulmonary arteries: Pulmonary arteries are normal in size, and demonstrate no intraluminal filling d efects to suggest central pulmonary embolism. Lungs and pleura: Patchy consolidation and groundglass opacities noted in the lungs bilaterally. Bila teral bronchial wall thickening. No pleural effusions or pneumothorax. Central and peripheral airway s are patent. Mediastinum: Heart size is normal, without pericardial effusion. No mediastinal or hilar adenopathy . Thoracic aorta is normal in caliber and enhancement. Esophagus is normal in caliber, without hiat al hernia. Bones and chest wall: No suspicious bony lesions. Ribs and thoracic spine appear intact throughout. Spine degenerative disc disease and facet arthropathy are noted. The thyroid is normal. No axilla ry or supraclavicular adenopathy. Abdomen: The bladder is surgically absent. Visualized upper abdominal solid organs appear normal in t he early arterial phase of enhancement. IMPRESSION: 1. No pulmonary embolus. 2. Bilateral patchy groundglass opacities and consolidation most compatible with atypical/viral pneum onia with organizing pneumonia, drug toxicity and connective tissue disorders and differential. 3. Bronchitis. Reviewed by: Paola Allen MD, PhD on 06/20/2020 7:19 AM PST Approved by: Paola Allen MD, PhD on 06/20/2020 7:19 AM PST Station ID: [id number]
--- NOTE | 2020-06-20 07:41 | PROVIDER PROGRESS NOTE ---
Assessment/Plan - Problem List (1) Pneumonia Assessment/Plan: CT angio for chest was negative for PE but showed bilateral patchy groundglass opacities and consolidation most compatible with atypical/viral pneumonia with organizing pneumonia. Also showed bronchitis. Patient was started on Zosyn 3.375 mg IV every 6 hours as needed. We will continue. (2) Acute respiratory failure with hypoxemia Assessment/Plan: [place] multifactorial due to bronchitis and pneumonia. Patient is on Zosyn. Patient is also receiving DuoNeb as needed. (3) B-cell lymphoma Qualifiers: B-cell lymphoma type: unspecified B-cell Lymphoma site: unspecified region Qualified Code(s): C85.10 - Unspecified B-cell lymphoma, unspecified site Assessment/Plan: She was due to see her oncologist Dr. Goel today. The [facility] clinic has been called and updated on patient's admission to the hospital. He appointment will be rescheduled (4) Hypothyroidism Assessment/Plan: On Synthroid 100 mcg p.o. daily (5) GERD (gastroesophageal reflux disease) Assessment/Plan: Patient is on omeprazole at home. We will order protonix (6) Hypertension Assessment/Plan: On carvedilol 12.5 mg p.o. twice daily. Will continue. - Current Meds Current Meds: Current Medications Generic Name Dose Route Start Last Admin Trade Name Benitezq PRN Reason Stop Dose Admin Albuterol/Ipratropium 3 ml 06/19/20 23:00 06/20/20 07:15 Ipratropium/Albuterol 3 Ml Neb INH 3 ml RTQID CALISTA Administration Budesonide 0.5 mg 06/20/20 07:00 06/20/20 07:15 Budesonide 0.5 Mg/2 Ml Neb INH 0.5 mg RTBID [place] Administration Piperacillin Sod/Tazobactam 100 mls @ 200 mls/hr 06/19/20 23:00 06/20/20 05:40 Sod 3.375 gm/ Sodium Chloride IV Infused Q6H [place] Infusion Sodium Chloride 10 ml 06/20/20 01:00 06/20/20 05:10 Sodium Chloride Flush 0.9% 10 Ml Syringe IVP 10 ml 0100,0900,1700 [place]ISTA Administration - Lab Result Fish Bone Diagrams: 06/21/20 06:50 06/21/20 06:50 - Additional Planning My Orders: My Active Orders 06/20/20 07:40 BMP - BASIC METABOLIC PANEL [CHEM] Routine CBC - COMP BLD CT W/AUTO DIFF [HEME] Routine 06/21/20 05:00 BMP - BASIC METABOLIC PANEL [CHEM] DAILYLAB CBC - COMP BLD CT W/AUTO DIFF [HEME] DAILYLAB 06/22/20 05:00 BMP - BASIC METABOLIC PANEL [CHEM] DAILYLAB CBC - COMP BLD CT W/AUTO DIFF [HEME] DAILYLAB 06/23/20 05:00 BMP - BASIC METABOLIC PANEL [CHEM] DAILYLAB CBC - COMP BLD CT W/AUTO DIFF [HEME] DAILYLAB 06/24/20 05:00 BMP - BASIC METABOLIC PANEL [CHEM] DAILYLAB CBC - COMP BLD CT W/AUTO DIFF [HEME] DAILYLAB Subjective - Subjective Patient Reports: Other (Patient had an episode of dyspnea prior to my exam and required an increase in oxygen from 2 to 4 L via nasal cannula. She denies chest pain, abdominal pain, nausea, fever or chills.She had just been given a breathing treatment which significantly improved her respiratory status.) Objective Vital Signs: Vital Signs - 24 hr 06/19/20 06/19/20 06/19/20 18:13 18:29 18:50 Temperature 36.7 C 36.8 C Heart Rate 98 104 H 93 Heart Rate [ Brachial] Respiratory 24 32 H 28 H Rate Blood Pressure 137/88 H 180/117 H 141/73 H Blood Pressure [Left Brachial artery] O2 Saturation 86 L 96 96 06/19/20 06/19/20 06/19/20 20:00 20:21 20:30 Temperature Heart Rate 87 87 84 Heart Rate [ Brachial] Respiratory 30 H 24 26 H Rate Blood Pressure 152/79 H 145/79 H Blood Pressure [Left Brachial artery] O2 Saturation 95 94 06/19/20 06/19/20 06/19/20 20:40 20:45 21:37 Temperature Heart Rate 88 Heart Rate [ Brachial] Respiratory 30 H 20 Rate Blood Pressure Blood Pressure [Left Brachial artery] O2 Saturation 88 L 96 06/19/20 06/19/20 06/19/20 22:30 23:45 23:58 Temperature 36.8 C Heart Rate 83 Heart Rate [ 112 H 94 Brachial] Respiratory 28 H 35 H 20 Rate Blood Pressure 156/87 H Blood Pressure 158/92 H [Left Brachial artery] O2 Saturation 93 94 94 06/20/20 06/20/20 05:14 07:15 Temperature 37.0 C Heart Rate 105 H Heart Rate [ 91 Brachial] Respiratory 20 24 Rate Blood Pressure Blood Pressure 137/70 H [Left Brachial artery] O2 Saturation 94 Oxygen O2 Source Nasal cannula I&O (Last 24 Hrs): Intake and Output Totals x24h 06/18/20 06/19/20 06/20/20 23:59 23:59 23:59 Intake Total 1000 250 Output Total 50 Balance 1000 200 General: Alert, Oriented x3, Mild distress, Moderate distress HEENT: Atraumatic, PERRLA, EOMI Neck: Supple, No JVD Neuro: Alert, Disoriented, Non Focal Cardiovascular: Regular rate Respiratory: Other (Mild dyspnea, mild crackles on auscultation.) Abdomen: Normal bowel sounds, Soft Extremities: No clubbing Skin: No rashes - Results Results: Laboratory Results WBC 8.3 x10^3/uL (4.8-10.8) 06/19/20 18:30 RBC 3.95 10^6/uL (4.20-5.40) L 06/19/20 18:30 Hgb 9.6 g/dL (12.0-16.0) L 06/19/20 18:30 Hct 32.0 % (37.0-47.0) L 06/19/20 18:30 MCV 81.0 fL (81.0-99.0) 06/19/20 18:30 MCH 24.3 pg (27.0-31.0) L 06/19/20 18:30 MCHC 30.0 g/dL (32.0-36.0) L 06/19/20 18:30 RDW 13.3 % (12.0-15.0) 06/19/20 18:30 Plt Count 431 10^3/uL (130-450) 06/19/20 18:30 MPV 9.3 fL (7.9-10.8) 06/19/20 18:30 Neut # (Auto) Not Reportable 06/19/20 18:30 Lymph # (Auto) Not Reportable 06/19/20 18:30 [place] # (Auto) Not Reportable 06/19/20 18:30 Eos # (Auto) Not Reportable 06/19/20 18:30 Baso # (Auto) Not Reportable 06/19/20 18:30 Absolute Nucleated RBC Not Reportable 06/19/20 18:30 Total Counted 100 06/19/20 18:30 Band Neuts % (Manual) 24 % (0-10) H 06/19/20 18:30 Reactive Lymphs % (Man) 1 % 06/19/20 18:30 Abnorm Lymph % (Manual) 0 % 06/19/20 18:30 Nucleated RBC % Not Reportable 06/19/20 18:30 Neutrophils # (Manual) 6.6 10^3/uL (1.5-6.6) 06/19/20 18:30 Lymphocytes # (Manual) 0.4 10^3/uL (1.5-3.5) L 06/19/20 18:30 Monocytes # (Manual) 1.2 10^3/uL (0.0-1.0) H 06/19/20 18:30 Eosinophils # (Manual) 0.0 10^3/uL (0-0.7) 06/19/20 18:30 Basophils # (Manual) 0.0 10^3/uL (0-0.1) 06/19/20 18:30 Differential Comment MANUAL DIFFERENTIAL 06/19/20 18:30 Platelet Estimate NORMAL (130-450,000) (NORMAL) 06/19/20 18:30 Platelet Morphology NORMAL APPEARANCE (NORMAL) 06/19/20 18:30 RBC Morph Micro Appear NORMAL APPEARANCE (NORMAL) 06/19/20 18:30 Sodium 139 mmol/L (135-145) 06/19/20 18:30 Potassium 3.3 mmol/L (3.5-5.0) L 06/19/20 18:30 Chloride 91 mmol/L (101-111) L 06/19/20 18:30 Carbon Dioxide 29 mmol/L (21-32) 06/19/20 18:30 Anion Gap 19.0 (6-13) H 06/19/20 18:30 BUN 18 mg/dL (6-20) 06/19/20 18:30 Creatinine 0.8 mg/dL (0.4-1.0) 06/19/20 18:30 Estimated GFR (MDRD) 70 (>89) L 06/19/20 18:30 Glucose 222 mg/dL (70-100) H 06/19/20 18:30 Lactic Acid 1.2 mmol/L (0.5-2.2) 06/19/20 18:30 Calcium 9.8 mg/dL (8.5-10.3) 06/19/20 18:30 Total Bilirubin 0.5 mg/dL (0.2-1.0) 06/19/20 18:30 AST 44 IU/L (10-42) H 06/19/20 18:30 ALT 40 IU/L (10-60) 06/19/20 18:30 Alkaline Phosphatase 151 IU/L (42-121) H 06/19/20 18:30 Troponin I High Sens 10.6 ng/L (2.3-14.8) 06/19/20 18: B-Natriuretic Peptide 294 pg/mL (5-100) H 06/19/20 18:30 Total Protein 7.5 g/dL (6.7-8.2) 06/19/20 18:30 Albumin 2.8 g/dL (3.2-5.5) L 06/19/20 18:30 Globulin 4.7 g/dL (2.1-4.2) H 06/19/20 18:30 Albumin/Globulin Ratio 0.6 (1.0-2.2) L 06/19/20 18:30 Nasal Adenovirus (PCR) NOT DETECTED 06/19/20 18:40 Nasal B. parapertussis DNA (PCR) NOT DETECTED 06/19/20 18:40 Nasal Coronavir 229E PCR NOT DETECTED 06/19/20 18:40 Nasal Coronavir HKU1 PCR NOT DETECTED 06/19/20 18:40 Nasal Coronavir NL63 PCR NOT DETECTED 06/19/20 18:40 Nasal Coronavir OC43 PCR NOT DETECTED 06/19/20 18:40 Nasal Enterovir/Rhinovir PCR NOT DETECTED 06/19/20 18:40 Nasal Influenza B PCR NOT DETECTED 06/19/20 18:40 Nasal Influenza A PCR NOT DETECTED 06/19/20 18:40 Nasal Parainfluen 1 PCR NOT DETECTED 06/19/20 18:40 Nasal Parainfluen 2 PCR NOT DETECTED 06/19/20 18:40 Nasal Parainfluen 3 PCR NOT DETECTED 06/19/20 18:40 Nasal Parainfluen 4 PCR NOT DETECTED 06/19/20 18:40 Nasal RSV (PCR) NOT DETECTED 06/19/20 18:40 Nasal Screen MRSA (PCR) NEGATIVE (NEGATIVE) 06/20/20 00:12 Nasal B.pertussis DNA PCR NOT DETECTED 06/19/20 18:40 Nasal C.pneumoniae (PCR) NOT DETECTED 06/19/20 18:40 Vasquez Human Metapneumo PCR NOT DETECTED 06/19/20 18:40 Nasal M.pneumoniae (PCR) NOT DETECTED 06/19/20 18:40 Nasal SARS-CoV-2 (PCR) NOT DETECTED 06/19/20 18:40 - Procedures Procedures: Procedures EXCISION OF MESENTERIC LYMPHATIC, OPEN APPROACH, DIAGNOSTIC (05/18/20) ABX Reporting Has patient been on IV antibiotics over the past 48 hours?: Yes
[2020-06-20] MEDS ORDERED: ALBUTEROL NEB 2.5 MG/3 ML INH PRN (07:48)
[2020-06-20 08:25] LABS: BASOPHILS % (AUTO) 0.3 %; HGB - HEMOGLOBIN 8.5 g/dL (12.0-16.0); LYMPHOCYTES % (AUTO) 5.4 %; MEAN CORPUSCULAR HEMOGLOBIN 24.6 pg (27.0-31.0); MEAN CORPUSCULAR HGB CONC 30.2 g/dL (32.0-36.0); MEAN CORPUSCULAR VOLUME 81.2 fL (81.0-99.0); MEAN PLATELET VOLUME 9.4 fL (7.9-10.8); MONOCYTES % (AUTO) 10.2 %; NEUTROPHILS % (AUTO) 76.6 %; PLT - PLATELET COUNT 394 10^3/uL (130-450); RED BLOOD COUNT 3.46 10^6/uL (4.20-5.40); RED CELL DISTRIBUTION WIDTH 13.4 % (12.0-15.0); WHITE BLOOD COUNT 6.2 x10^3/uL (4.8-10.8)
[2020-06-20] MEDS: ENOXAPARIN 40 MG/0.4 ML SYRINGE SUBQ SCH (08:28)
[2020-06-20 08:33] LABS: CALCIUM 8.9 mg/dL (8.5-10.3); CREATININE 0.7 mg/dL (0.4-1.0)
[2020-06-20 09:00] LABS: ABNORMAL LYMPHS % (MANUAL) 0 %
[2020-06-20 09:03] LABS: BAND NEUTROPHILS % (MANUAL) 6 %; LYMPHOCYTES # (MANUAL) 0.9 10^3/uL (1.5-3.5); LYMPHOCYTES % (MANUAL) 14 %; METAMYELOCYTES % (MANUAL) 1 %
[2020-06-20 09:05] LABS: PLATELET ESTIMATE, MANUAL NORMAL (130-450,000) (NORMAL); PLATELET MORPHOLOGY NORMAL APPEARANCE (NORMAL); RBC MORPHOLOGY (MULTIPLE) 1+ MICROCYTOSIS (NORMAL)
[2020-06-20] MEDS ORDERED: FUROSEMIDE 20 MG/2 ML VIAL IVP STA (09:21)
[2020-06-20] MEDS: SODIUM CHLORIDE FLUSH 0.9% 10 ML SYRINGE IVP PRN (10:00)
--- NOTE | 2020-06-20 11:27 | PROVIDER PROGRESS NOTE ---
Subjective - General Admit Date: 06/19/20 Procedure Date: 05/18/20 Post Op Days: 33 Procedure Performed: Diagnostic excisional biopsy of mesenteric lymph node - Review of Systems Wound/Incisions: positive: Healing well General: positive: Malaise HEENT: positive: No symptoms Pulmonary: positive: Shortness of breath, Cough, Sputum Cardiovascular: positive: No symptoms Gastrointestinal: positive: No symptoms Genitourinary: positive: No symptoms Skin: positive: No symptoms Psychiatric: positive: No symptoms Objective - Patient Data Reviewed Vital Signs: Yes Vital Signs: Vital Signs x48h Temp Pulse Pulse Resp BP Pulse Ox 06/20/20 09:59 24 92 06/20/20 07:45 94 06/20/20 07:15 105 H 24 06/20/20 05:14 37.0 C 91 20 137/70 H 94 Weight: Weight 06/18/20 06/19/20 06/20/20 23:59 23:59 23:59 Weight (kg) 94.801 kg 91 kg Intake & Output: Intake and Output Totals x24h 06/18/20 06/19/20 06/20/20 23:59 23:59 23:59 Intake Total 1000 350 Output Total 50 Balance 1000 300 - Lab Results Lab Results: 06/20/20 08:12 06/20/20 08:12 Other Lab Results: Lab Results x24hrs 06/20/20 06/20/20 06/20/20 Range/Units 08:12 08:12 00:12 WBC 6.2 (4.8-10.8) x10^3/uL RBC 3.46 L (4.20-5.40) 10^6/uL Hgb 8.5 L (12.0-16.0) g/dL Hct 28.1 L (37.0-47.0) % MCV 81.2 (81.0-99.0) fL MCH 24.6 L (27.0-31.0) pg MCHC 30.2 L (32.0-36.0) g/dL RDW 13.4 (12.0-15.0) % Plt Count 394 (130-450) 10^3/uL MPV 9.4 (7.9-10.8) fL Neut # (Auto) Not Reportable Lymph # (Auto) Not Reportable Pierce # (Auto) Not Reportable Eos # (Auto) Not Reportable Baso # (Auto) Not Reportable Absolute Nucleated RBC Not Reportable Total Counted 100 Band Neuts % (Manual) 6 (0 - 10) % Reactive Lymphs % (Man) % Abnorm Lymph % (Manual) 0 % Metamyelocytes % 1 H ( - 0) % Nucleated RBC % Not Reportable Neutrophils # (Manual) 5.3 (1.5-6.6) 10^3/uL Lymphocytes # (Manual) 0.9 L (1.5-3.5) 10^3/uL Monocytes # (Manual) 0.0 (0.0-1.0) 10^3/uL Eosinophils # (Manual) 0.0 (0-0.7) 10^3/uL Basophils # (Manual) 0.0 (0-0.1) 10^3/uL Differential Comment Manual Slide Review Indicated WBC Morphology NORMAL APPEARANCE (NORMAL) Platelet Estimate NORMAL (130-450,000) (NORMAL) Platelet Morphology NORMAL APPEARANCE (NORMAL) RBC Morph Micro Appear 1+ MICROCYTOSIS (NORMAL) Sodium 141 (135-145) mmol/L Potassium 3.5 (3.5-5.0) mmol/L Chloride 101 (101-111) mmol/L Carbon Dioxide 27 (21-32) mmol/L Anion Gap 13.0 (6-13) BUN 13 (6-20) mg/dL Creatinine 0.7 (0.4-1.0) mg/dL Estimated GFR (MDRD) 82 L (>89) Glucose 150 H (70-100) mg/dL Lactic Acid (0.5-2.2) mmol/L Calcium 8.9 (8.5-10.3) mg/dL Total Bilirubin (0.2-1.0) mg/dL AST (10-42) IU/L ALT (10-60) IU/L Alkaline Phosphatase (42-121) IU/L Troponin I High Sens (2.3-14.8) ng/L B-Natriuretic Peptide (5-100) pg/mL Total Protein (6.7-8.2) g/dL Albumin (3.2-5.5) g/dL Globulin (2.1-4.2) g/dL Albumin/Globulin Ratio (1.0-2.2) Nasal Adenovirus (PCR) Nasal B. parapertussis DNA (PCR) Nasal Coronavir 229E PCR Nasal Coronavir HKU1 PCR Nasal Coronavir NL63 PCR Nasal Coronavir OC43 PCR Nasal Enterovir/Rhinovir PCR Nasal Influenza B PCR Nasal Influenza A PCR Nasal Parainfluen 1 PCR Nasal Parainfluen 2 PCR Nasal Parainfluen 3 PCR Nasal Parainfluen 4 PCR Nasal RSV (PCR) Nasal Screen MRSA (PCR) NEGATIVE (NEGATIVE) Nasal B.pertussis DNA PCR Nasal C.pneumoniae (PCR) Vasquez Human Metapneumo PCR Nasal M.pneumoniae (PCR) Nasal SARS-CoV-2 (PCR) 06/19/20 06/19/20 06/19/20 Range/Units 18:40 18:30 18:30 WBC (4.8-10.8) x10^3/uL RBC (4.20-5.40) 10^6/uL Hgb (12.0-16.0) g/dL Hct (37.0-47.0) % MCV (81.0-99.0) fL MCH (27.0-31.0) pg MCHC (32.0-36.0) g/dL RDW (12.0-15.0) % Plt Count (130-450) 10^3/uL MPV (7.9-10.8) fL Neut # (Auto) Lymph # (Auto) [place] # (Auto) Eos # (Auto) Baso # (Auto) Absolute Nucleated RBC Total Counted Band Neuts % (Manual) (0 - 10) % Reactive Lymphs % (Man) % Abnorm Lymph % (Manual) % Metamyelocytes % ( - 0) % Nucleated RBC % Neutrophils # (Manual) (1.5-6.6) 10^3/uL Lymphocytes # (Manual) (1.5-3.5) 10^3/uL Monocytes # (Manual) (0.0-1.0) 10^3/uL Eosinophils # (Manual) (0-0.7) 10^3/uL Basophils # (Manual) (0-0.1) 10^3/uL Differential Comment Manual Slide Review WBC Morphology (NORMAL) Platelet Estimate (NORMAL) Platelet Morphology (NORMAL) RBC Morph Micro Appear (NORMAL) Sodium (135-145) mmol/L Potassium (3.5-5.0) mmol/L Chloride (101-111) mmol/L Carbon Dioxide (21-32) mmol/L Anion Gap (6-13) BUN (6-20) mg/dL Creatinine (0.4-1.0) mg/dL Estimated GFR (MDRD) (>89) Glucose (70-100) mg/dL Lactic Acid (0.5-2.2) mmol/L Calcium (8.5-10.3) mg/dL Total Bilirubin (0.2-1.0) mg/dL AST (10-42) IU/L ALT (10-60) IU/L Alkaline Phosphatase (42-121) IU/L Troponin I High Sens 10.6 (2.3-14.8) ng/L B-Natriuretic Peptide 294 H (5-100) pg/mL Total Protein (6.7-8.2) g/dL Albumin (3.2-5.5) g/dL Globulin (2.1-4.2) g/dL Albumin/Globulin Ratio (1.0-2.2) Nasal Adenovirus (PCR) NOT DETECTED Nasal B. parapertussis DNA (PCR) NOT DETECTED Nasal Coronavir 229E PCR NOT DETECTED Nasal Coronavir HKU1 PCR NOT DETECTED Nasal Coronavir NL63 PCR NOT DETECTED Nasal Coronavir OC43 PCR NOT DETECTED Nasal Enterovir/Rhinovir PCR NOT DETECTED Nasal Influenza B PCR NOT DETECTED Nasal Influenza A PCR NOT DETECTED Nasal Parainfluen 1 PCR NOT DETECTED Nasal Parainfluen 2 PCR NOT DETECTED Nasal Parainfluen 3 PCR NOT DETECTED Nasal Parainfluen 4 PCR NOT DETECTED Nasal RSV (PCR) NOT DETECTED Nasal Screen MRSA (PCR) (NEGATIVE) Nasal B.pertussis DNA PCR NOT DETECTED Nasal C.pneumoniae (PCR) NOT DETECTED Vasquez Human Metapneumo PCR NOT DETECTED Nasal M.pneumoniae (PCR) NOT DETECTED Nasal SARS-CoV-2 (PCR) NOT DETECTED 06/19/20 06/19/20 06/19/20 Range/Units 18:30 18:30 18:30 WBC 8.3 (4.8-10.8) x10^3/uL RBC 3.95 L (4.20-5.40) 10^6/uL Hgb 9.6 L (12.0-16.0) g/dL Hct 32.0 L (37.0-47.0) % MCV 81.0 (81.0-99.0) fL MCH 24.3 L (27.0-31.0) pg MCHC 30.0 L (32.0-36.0) g/dL RDW 13.3 (12.0-15.0) % Plt Count 431 (130-450) 10^3/uL MPV 9.3 (7.9-10.8) fL Neut # (Auto) Not Reportable Lymph # (Auto) Not Reportable [place] # (Auto) Not Reportable Eos # (Auto) Not Reportable Baso # (Auto) Not Reportable Absolute Nucleated RBC Not Reportable Total Counted 100 Band Neuts % (Manual) 24 H (0 - 10) % Reactive Lymphs % (Man) 1 % Abnorm Lymph % (Manual) 0 % Metamyelocytes % ( - 0) % Nucleated RBC % Not Reportable Neutrophils # (Manual) 6.6 (1.5-6.6) 10^3/uL Lymphocytes # (Manual) 0.4 L (1.5-3.5) 10^3/uL Monocytes # (Manual) 1.2 H (0.0-1.0) 10^3/uL Eosinophils # (Manual) 0.0 (0-0.7) 10^3/uL Basophils # (Manual) 0.0 (0-0.1) 10^3/uL Differential Comment MANUAL DIFFERENTIAL Manual Slide Review WBC Morphology (NORMAL) Platelet Estimate NORMAL (130-450,000) (NORMAL) Platelet Morphology NORMAL APPEARANCE (NORMAL) RBC Morph Micro Appear NORMAL APPEARANCE (NORMAL) Sodium 139 (135-145) mmol/L Potassium 3.3 L (3.5-5.0) mmol/L Chloride 91 L (101-111) mmol/L Carbon Dioxide 29 (21-32) mmol/L Anion Gap 19.0 H (6-13) BUN 18 (6-20) mg/dL Creatinine 0.8 (0.4-1.0) mg/dL Estimated GFR (MDRD) 70 L (>89) Glucose 222 H (70-100) mg/dL Lactic Acid 1.2 (0.5-2.2) mmol/L Calcium 9.8 (8.5-10.3) mg/dL Total Bilirubin 0.5 (0.2-1.0) mg/dL AST 44 H (10-42) IU/L ALT 40 (10-60) IU/L Alkaline Phosphatase 151 H (42-121) IU/L Troponin I High Sens (2.3-14.8) ng/L B-Natriuretic Peptide (5-100) pg/mL Total Protein 7.5 (6.7-8.2) g/dL Albumin 2.8 L (3.2-5.5) g/dL Globulin 4.7 H (2.1-4.2) g/dL Albumin/Globulin Ratio 0.6 L (1.0-2.2) Nasal Adenovirus (PCR) Nasal B. parapertussis DNA (PCR) Nasal Coronavir 229E PCR Nasal Coronavir HKU1 PCR Nasal Coronavir NL63 PCR Nasal Coronavir OC43 PCR Nasal Enterovir/Rhinovir PCR Nasal Influenza B PCR Nasal Influenza A PCR Nasal Parainfluen 1 PCR Nasal Parainfluen 2 PCR Nasal Parainfluen 3 PCR Nasal Parainfluen 4 PCR Nasal RSV (PCR) Nasal Screen MRSA (PCR) (NEGATIVE) Nasal B.pertussis DNA PCR Nasal C.pneumoniae (PCR) Vasquez Human Metapneumo PCR Nasal M.pneumoniae (PCR) Nasal SARS-CoV-2 (PCR) - Imaging Results Radiology Imaging: positive: Final report received (Reviewed CT scan that shows patchy infiltrates bilaterally consistent with atypical pneumonia. No PE noted.) - Current Medications Current Medications: Current Medications Generic Name Dose Route Start Last Admin Trade Name Freq PRN Reason Stop Dose Admin Albuterol/Ipratropium 3 ml 06/19/20 23:00 06/20/20 07:15 Ipratropium/Albuterol 3 Ml Neb INH 3 ml RTQID [place]IST[place] Administration Budesonide 0.5 mg 06/20/20 07:00 06/20/20 07:15 Budesonide 0.5 Mg/2 Ml Neb INH 0.5 mg RTBID [place] Administration Enoxaparin Sodium 40 mg 06/20/20 09:00 06/20/20 08:28 Enoxaparin 40 Mg/0.4 Ml Syringe SUBQ 40 mg DAILY CALISTA Administration Piperacillin Sod/Tazobactam 100 mls @ 200 mls/hr 06/19/20 23:00 06/20/20 05:40 Sod 3.375 gm/ Sodium Chloride IV Infused Q6H [place] Infusion Sodium Chloride 10 ml 06/19/20 22:20 06/20/20 10:00 Sodium Chloride Flush 0.9% 10 Ml Syringe IVP 10 ml PRN PRN Administration NEEDED PER PROVIDER ORDERS Sodium Chloride 10 ml 06/20/20 01:00 06/20/20 05:10 Sodium Chloride Flush 0.9% 10 Ml Syringe IVP 10 ml 0100,0900,1700 [facility] Administration - Physical Exam General Appearance: positive: Mild distress Eyes Bilateral: positive: No lid inflammation, Other (Subconjunctival hemorrhage in LEFT eye - small.) ENT: positive: Dry mucous membranes, Other (Dentition mild-poor.) Neck: positive: Trachea midline Respiratory: positive: Rhonchi (Throughout although mildly worse on RIGHT base. Difficult cough so far productive of scant yellow-white sputum.) Cardiovascular: positive: Regular rate & rhythm Abdomen: positive: Non-tender Skin: positive: Pallor (Slight.) ABX Reporting Has patient been on IV antibiotics over the past 48 hours?: Yes Impression/Plan - Problem List Problem List: I was contacted that my patient had been admitted to the hospital. The patient had been presented [facility] this morning. She has received her first dose of R-CHOP treating her diffuse large B-cell lymphoma diagnosed on excisional lymph node biopsy about 33 days ago. The patient was scheduled to meet with her oncologist tomorrow. She does not recall why she told her to bring her to the hospital last night but complains of a cough since she has been in the hospital. Feels tired and run down but this is expected with her chemotherapy. There is no mcconnell to place a Portacath in this patient and I would recommend waiting for significant clinical improvement prior to placing the Portacath. A PET-CT scan done in [place] stages her to Stage II and I have no record of a bone marrow biopsy being done. If the bone marrow biopsy was not done there is NO reason to do it now and it would not affect treatment regardless of the results. Aggressive/adequate hydration was discussed with her during her chemotherapeutic regimen. Please call with any surgical questions/concerns. I will check in with her daily and I appreciate the opportunity to participate in her care.
[2020-06-20 12:22] LABS: BILIRUBIN,URINE NEGATIVE (NEGATIVE); CLARITY,URINE CLEAR (CLEAR); GLUCOSE, URINE (UA) NEGATIVE (NEGATIVE); KETONES,URINE (UA) TRACE mg/dL (NEGATIVE); LEUKOCYTE ESTERASE, URINE NEGATIVE (NEGATIVE); NITRITE,URINE NEGATIVE (NEGATIVE); OCCULT BLOOD,URINE LARGE (NEGATIVE); PROTEIN,URINE >=300 mg/dL (NEGATIVE); UROBILINOGEN,URINE 0.2 (NORMAL) E.U./dL (NORMAL)
[2020-06-20 12:29] LABS: BACTERIA,URINE Few /HPF (None Seen); SQUAMOUS EPITHELIAL CELL,UR FEW Squamous (<= Few)
[2020-06-20] MEDS: AZITHROMYCIN INJ 500 MG in SODIUM CHLORIDE 0.9% 250 ML IV SCH (13:35)
--- NOTE | 2020-06-20 18:43 | PHARMACY PROGRESS NOTE ---
- Best Possible Medication History Admit Date and Time: 06/19/202219 Processed by: Pharmacy Medication History completed: Yes Patient Interview: Completed Secondary Source(s): Insurance records As the person ultimately responsible for medication therapy, providers are able to order a medication from an existing home medication list in [facility] via the "Reconcile Routine" prior to Confirmation of that medication by software support engineer. Such practice is discouraged except when the physician, in their clinical judgment, deems that a medical need exists for a medication without regard to previous use.
[2020-06-21] MEDS: PIPERACILLIN/TAZOBACTAM 3.375 GM in SODIUM CHLORIDE 0.9% MINIBAG 100 ML IV SCH ×5 (04:06→22:37)
[2020-06-21] MEDS: SODIUM CHLORIDE FLUSH 0.9% 10 ML SYRINGE IVP SCH ×3 (05:56→16:51)
[2020-06-21 07:16] LABS: BASOPHILS % (AUTO) 0.2 %; HGB - HEMOGLOBIN 8.7 g/dL (12.0-16.0); LYMPHOCYTES % (AUTO) 6.6 %; MEAN CORPUSCULAR HEMOGLOBIN 24.6 pg (27.0-31.0); MEAN CORPUSCULAR HGB CONC 29.6 g/dL (32.0-36.0); MEAN CORPUSCULAR VOLUME 83.3 fL (81.0-99.0); MEAN PLATELET VOLUME 9.4 fL (7.9-10.8); NEUTROPHILS % (AUTO) 69.2 %; PLT - PLATELET COUNT 520 10^3/uL (130-450); RED BLOOD COUNT 3.53 10^6/uL (4.20-5.40); RED CELL DISTRIBUTION WIDTH 13.7 % (12.0-15.0); WHITE BLOOD COUNT 10.4 x10^3/uL (4.8-10.8)
[2020-06-21 07:23] LABS: CALCIUM 8.7 mg/dL (8.5-10.3); CREATININE 0.7 mg/dL (0.4-1.0)
[2020-06-21 07:24] LABS: ABNORMAL LYMPHS % (MANUAL) 0 %
[2020-06-21 07:45] LABS: BAND NEUTROPHILS % (MANUAL) 10 %; DIFFERENTIAL COMMENT MANUAL DIFFERENTIAL; LYMPHOCYTES # (MANUAL) 1.5 10^3/uL (1.5-3.5); LYMPHOCYTES % (MANUAL) 14 %; MONOCYTES # (MANUAL) 0.8 10^3/uL (0.0-1.0); PLATELET ESTIMATE, MANUAL INCREASED (>450,000) (NORMAL); RBC MORPHOLOGY (MULTIPLE) 1+ HYPOCHROMASIA (NORMAL)
[2020-06-21] MEDS: BUDESONIDE 0.5 MG/2 ML NEB INH SCH ×3 (08:00→19:57)
[2020-06-21] MEDS: IPRATROPIUM/ALBUTEROL 3 ML NEB INH SCH ×4 (08:00→19:57)
[2020-06-21] MEDS: ENOXAPARIN 40 MG/0.4 ML SYRINGE SUBQ SCH (09:07)
[2020-06-21] MEDS: AZITHROMYCIN INJ 500 MG in SODIUM CHLORIDE 0.9% 250 ML IV SCH (09:07)
--- NOTE | 2020-06-21 09:27 | PROVIDER PROGRESS NOTE ---
Assessment/Plan - Problem List (1) Pneumonia Assessment/Plan: Patient's sputum sample grew gram-positive Cocci in pairs and clusters. Patient was started on Zosyn 3.375 mg IV every 6 hours as needed. We will continue. If no significant improvement or if worsening in patient's clinical condition will consider adding vancomycin IV for MRSA coverage. (2) Acute respiratory failure with hypoxemia Assessment/Plan: Likely multifactorial due to bronchitis and pneumonia. Patient is on Zosyn. Patient is also receiving DuoNeb as needed. (3) B-cell lymphoma Qualifiers: B-cell lymphoma type: unspecified B-cell Lymphoma site: unspecified region Qualified Code(s): C85.10 - Unspecified B-cell lymphoma, unspecified site Assessment/Plan: Patient will follow up with oncology (Dr Goel at the [facility] [place]) once discharged. (4) GERD (gastroesophageal reflux disease) Assessment/Plan: On Protonix (5) Hypertension Assessment/Plan: On carvedilol 12.5 mg p.o. twice daily (6) Hypothyroidism Assessment/Plan: On Synthroid 100 mcg p.o. daily - Current Meds Current Meds: Current Medications Generic Name Dose Route Start Last Admin Trade Name Freq PRN Reason Stop Dose Admin Albuterol/Ipratropium 3 ml 06/19/20 23:00 06/20/20 19:00 Ipratropium/Albuterol 3 Ml Neb INH Not Given RTQID [place] Budesonide 0.5 mg 06/20/20 07:00 06/20/20 19:00 Budesonide 0.5 Mg/2 Ml Neb INH Not Given RTBID [place] Enoxaparin Sodium 40 mg 06/20/20 09:00 06/21/20 09:07 Enoxaparin 40 Mg/0.4 Ml Syringe SUBQ 40 mg DAILY [place]ISTA Administration Piperacillin Sod/Tazobactam 100 mls @ 200 mls/hr 06/19/20 23:00 06/21/20 05:56 Sod 3.375 gm/ Sodium Chloride IV Not Given Q6H CALISTA Azithromycin 500 mg/ Sodium 250 mls @ 250 mls/hr 06/20/20 13:30 06/21/20 09:07 Chloride IV 06/24/20 09:59 250 mls/hr DAILY CALISTA Administration Sodium Chloride 10 ml 06/19/20 22:20 06/20/20 10:00 Sodium Chloride Flush 0.9% 10 Ml Syringe IVP 10 ml PRN PRN Administration NEEDED PER PROVIDER ORDERS Sodium Chloride 10 ml 06/20/20 01:00 06/21/20 09:07 Sodium Chloride Flush 0.9% 10 Ml Syringe IVP 10 ml 0100,0900,1700 CALISTA Administration - Lab Result Fish Bone Diagrams: 06/21/20 06:50 06/21/20 06:50 - Additional Planning My Orders: My Active Orders 06/20/20 13:30 Azithromycin Inj [Zithromax Inj] 500 mg Sodium Chloride 0.9% [Normal Saline 0.9%] 250 ml IV DAILY 06/22/20 05:00 BMP - BASIC METABOLIC PANEL [CHEM] DAILYLAB CBC - COMP BLD CT W/AUTO DIFF [HEME] DAILYLAB 06/23/20 05:00 BMP - BASIC METABOLIC PANEL [CHEM] DAILYLAB CBC - COMP BLD CT W/AUTO DIFF [HEME] DAILYLAB 06/24/20 05:00 BMP - BASIC METABOLIC PANEL [CHEM] DAILYLAB CBC - COMP BLD CT W/AUTO DIFF [HEME] DAILYLAB Subjective - Subjective Patient Reports: Other (Price was seated in bedside recliner having lunch at time of exam. She reports breathing better today. She denied any other complaints.) Objective Vital Signs: Vital Signs - 24 hr 06/20/20 06/20/20 06/20/20 09:59 11:05 14:22 Temperature Heart Rate 100 Heart Rate [ 106 H Activity] Heart Rate [ Brachial] Heart Rate [ 115 H Sitting] Respiratory 24 22 Rate Blood Pressure 155/111 H [Activity] Blood Pressure [Left Brachial artery] Blood Pressure 118/58 L [Sitting] O2 Saturation 92 06/20/20 06/21/20 16:00 08:00 Temperature 36.8 C 37.0 C Heart Rate Heart Rate [ Activity] Heart Rate [ 95 93 Brachial] Heart Rate [ Sitting] Respiratory 24 22 Rate Blood Pressure [Activity] Blood Pressure 139/73 H 143/65 H [Left Brachial artery] Blood Pressure [Sitting] O2 Saturation 93 97 Oxygen O2 Source Nasal cannula I&O (Last 24 Hrs): Intake and Output Totals x24h 06/19/20 06/20/20 06/21/20 23:59 23:59 23:59 Intake Total 1000 1280 672 Output Total 1690 250 Balance 1000 -410 422 General: Alert, Oriented x3, Mild distress HEENT: Atraumatic, PERRLA, EOMI Neck: Supple, No JVD Neuro: Alert, Oriented Times 3 Cardiovascular: Regular rate, Normal S1, Normal S2 Respiratory: Other (Coarse breath sounds. Mild crackles in lung bases.) Abdomen: Normal bowel sounds, Soft, No tenderness Extremities: No clubbing, No edema Skin: No rashes - Results Results: Laboratory Results WBC 10.4 x10^3/uL (4.8-10.8) 06/21/20 06:50 RBC 3.53 10^6/uL (4.20-5.40) L 06/21/20 06:50 Hgb 8.7 g/dL (12.0-16.0) L 06/21/20 06:50 Hct 29.4 % (37.0-47.0) L 06/21/20 06:50 MCV 83.3 fL (81.0-99.0) 06/21/20 06:50 MCH 24.6 pg (27.0-31.0) L 06/21/20 06:50 MCHC 29.6 g/dL (32.0-36.0) L 06/21/20 06:50 RDW 13.7 % (12.0-15.0) 06/21/20 06:50 Plt Count 520 10^3/uL (130-450) H 06/21/20 06:50 MPV 9.4 fL (7.9-10.8) 06/21/20 06:50 Neut # (Auto) Not Reportable 06/21/20 06:50 Lymph # (Auto) Not Reportable 06/21/20 06:50 [place] # (Auto) Not Reportable 06/21/20 06:50 Eos # (Auto) Not Reportable 06/21/20 06:50 Baso # (Auto) Not Reportable 06/21/20 06:50 Absolute Nucleated RBC Not Reportable 06/21/20 06:50 Total Counted 100 06/21/20 06:50 Band Neuts % (Manual) 10 % (0-10) 06/21/20 06:50 Reactive Lymphs % (Man) 1 % 06/19/20 18:30 Abnorm Lymph % (Manual) 0 % 06/21/20 06:50 Metamyelocytes % 1 % (-0) H 06/20/20 08:12 Nucleated RBC % Not Reportable 06/21/20 06:50 Neutrophils # (Manual) 8.1 10^3/uL (1.5-6.6) H 06/21/20 06:50 Lymphocytes # (Manual) 1.5 10^3/uL (1.5-3.5) 06/21/20 06:50 Monocytes # (Manual) 0.8 10^3/uL (0.0-1.0) 06/21/20 06:50 Eosinophils # (Manual) 0.0 10^3/uL (0-0.7) 06/21/20 06:50 Basophils # (Manual) 0.0 10^3/uL (0-0.1) 06/21/20 06:50 Differential Comment MANUAL DIFFERENTIAL 06/21/20 06:50 Manual Slide Review Indicated 06/20/20 08:12 WBC Morphology NORMAL APPEARANCE (NORMAL) 06/20/20 08:12 Platelet Estimate INCREASED (>450,000) (NORMAL) 06/21/20 06:50 Platelet Morphology NORMAL APPEARANCE (NORMAL) 06/20/20 08:12 RBC Morph Micro Appear 1+ HYPOCHROMASIA (NORMAL) 06/21/20 06:50 Sodium 140 mmol/L (135-145) 06/21/20 06:50 Potassium 3.2 mmol/L (3.5-5.0) L 06/21/20 06:50 Chloride 97 mmol/L (101-111) L 06/21/20 06:50 Carbon Dioxide 32 mmol/L (21-32) 06/21/20 06:50 Anion Gap 11.0 (6-13) 06/21/20 06:50 BUN 10 mg/dL (6-20) 06/21/20 06:50 Creatinine 0.7 mg/dL (0.4-1.0) 06/21/20 06:50 Estimated GFR (MDRD) 82 (>89) L 06/21/20 06:50 Glucose 134 mg/dL (70-100) H 06/21/20 06:50 Lactic Acid 1.2 mmol/L (0.5-2.2) 06/19/20 18:30 Calcium 8.7 mg/dL (8.5-10.3) 06/21/20 06:50 Total Bilirubin 0.5 mg/dL (0.2-1.0) 06/19/20 18:30 AST 44 IU/L (10-42) H 06/19/20 18:30 ALT 40 IU/L (10-60) 06/19/20 18:30 Alkaline Phosphatase 151 IU/L (42-121) H 06/19/20 18:30 Troponin I High Sens 10.6 ng/L (2.3-14.8) 06/19/20 18:30 B-Natriuretic Peptide 294 pg/mL (5-100) H 06/19/20 18:30 Total Protein 7.5 g/dL (6.7-8.2) 06/19/20 18:30 Albumin 2.8 g/dL (3.2-5.5) L 06/19/20 18:30 Globulin 4.7 g/dL (2.1-4.2) H 06/19/20 18:30 Albumin/Globulin Ratio 0.6 (1.0-2.2) L 06/19/20 18:30 Urine Color YELLOW 06/20/20 08:12 Urine Clarity CLEAR (CLEAR) 06/20/20 08:12 Urine pH 6.0 PH (5.0-7.5) 06/20/20 08:12 Ur Specific [place] 1.020 (1.002-1.030) 06/20/20 08:12 Urine Protein >=300 mg/dL (NEGATIVE) H 06/20/20 08:12 Urine Glucose (UA) NEGATIVE mg/dL (NEGATIVE) 06/20/20 08:12 Urine Ketones TRACE mg/dL (NEGATIVE) 06/20/20 08:12 Urine Occult Blood LARGE (NEGATIVE) H 06/20/20 08:12 Urine Nitrite NEGATIVE (NEGATIVE) 06/20/20 08:12 Urine Bilirubin NEGATIVE (NEGATIVE) 06/20/20 08:12 Urine Urobilinogen 0.2 (NORMAL) E.U./dL (NORMAL) 06/20/20 08:12 Ur Leukocyte Esterase NEGATIVE (NEGATIVE) 06/20/20 08:12 Urine RBC 6-10 /HPF (0-5) H 06/20/20 08:12 Urine WBC 0-3 /HPF (0-5) 06/20/20 08:12 Urine WBC Clumps Cancelled 06/20/20 08:12 Ur Epithelial Cells Cancelled 06/20/20 08:12 Ur Squamous Epith Cells FEW Squamous (<= Few) 06/20/20 08:12 Urine Crystals Cancelled 06/20/20 08:12 Amorphous Sediment Cancelled 06/20/20 08:12 Urine Bacteria Few /HPF (None Seen) 06/20/20 08:12 Urine Casts Cancelled 06/20/20 08:12 Urine Starch Cancelled 06/20/20 08:12 Urine Mucus Cancelled 06/20/20 08:12 Urine Trichomonas Cancelled 06/20/20 08:12 Urine Yeast Cancelled 06/20/20 08:12 Urine Sperm Cancelled 06/20/20 08:12 Ur Oval Fat Bodies Cancelled 06/20/20 08:12 Ur Microscopic Review INDICATED 06/20/20 08:12 Urine Culture Comments NOT INDICATED 06/20/20 08:12 Nasal Adenovirus (PCR) NOT DETECTED 06/19/20 18:40 Nasal B. parapertussis DNA (PCR) NOT DETECTED 06/19/20 18:40 Nasal Coronavir 229E PCR NOT DETECTED 06/19/20 18:40 Nasal Coronavir HKU1 PCR NOT DETECTED 06/19/20 18:40 Nasal Coronavir NL63 PCR NOT DETECTED 06/19/20 18:40 Nasal Coronavir OC43 PCR NOT DETECTED 06/19/20 18:40 Nasal Enterovir/Rhinovir PCR NOT DETECTED 06/19/20 18:40 Nasal Influenza B PCR NOT DETECTED 06/19/20 18:40 Nasal Influenza A PCR NOT DETECTED 06/19/20 18:40 Nasal Parainfluen 1 PCR NOT DETECTED 06/19/20 18:40 Nasal Parainfluen 2 PCR NOT DETECTED 06/19/20 18:40 Nasal Parainfluen 3 PCR NOT DETECTED 06/19/20 18:40 Nasal Parainfluen 4 PCR NOT DETECTED 06/19/20 18:40 Nasal RSV (PCR) NOT DETECTED 06/19/20 18:40 Nasal Screen MRSA (PCR) NEGATIVE (NEGATIVE) 06/20/20 00:12 Nasal B.pertussis DNA PCR NOT DETECTED 06/19/20 18:40 Nasal C.pneumoniae (PCR) NOT DETECTED 06/19/20 18:40 [place] Human Metapneumo PCR NOT DETECTED 06/19/20 18:40 Nasal M.pneumoniae (PCR) NOT DETECTED 06/19/20 18:40 Nasal SARS-CoV-2 (PCR) NOT DETECTED 06/19/20 18:40 - Procedures Procedures: Procedures EXCISION OF MESENTERIC LYMPHATIC, OPEN APPROACH, DIAGNOSTIC (05/18/20) ABX Reporting Has patient been on IV antibiotics over the past 48 hours?: Yes
[2020-06-21] MEDS ORDERED: POTASSIUM CHLORIDE 20 MEQ TABLET PO ONE (09:28)
[2020-06-21] MEDS: carvediloL 12.5 MG TABLET PO SCH (20:52)
[2020-06-21] MEDS: guaiFENesin/DEXTROMETHORPHAN 10 ML UDC PO PRN (23:08)
[2020-06-22] MEDS: SODIUM CHLORIDE FLUSH 0.9% 10 ML SYRINGE IVP SCH ×4 (04:33→23:42)
[2020-06-22] MEDS: PIPERACILLIN/TAZOBACTAM 3.375 GM in SODIUM CHLORIDE 0.9% MINIBAG 100 ML IV SCH ×4 (04:33→22:36)
[2020-06-22] MEDS: BENZOCAINE/MENTHOL LOZENGE MM PRN (04:34)
[2020-06-22 05:08] LABS: BASOPHILS % (AUTO) 0.9 %; EOSINOPHILS % (AUTO) 0.2 %; HGB - HEMOGLOBIN 8.2 g/dL (12.0-16.0); LYMPHOCYTES % (AUTO) 7.8 %; MEAN CORPUSCULAR HEMOGLOBIN 24.2 pg (27.0-31.0); MEAN CORPUSCULAR HGB CONC 29.1 g/dL (32.0-36.0); MEAN CORPUSCULAR VOLUME 83.2 fL (81.0-99.0); MEAN PLATELET VOLUME 9.6 fL (7.9-10.8); MONOCYTES % (AUTO) 8.6 %; NEUTROPHILS % (AUTO) 62.4 %; PLT - PLATELET COUNT 461 10^3/uL (130-450); RED BLOOD COUNT 3.39 10^6/uL (4.20-5.40); RED CELL DISTRIBUTION WIDTH 13.8 % (12.0-15.0); WHITE BLOOD COUNT 8.9 x10^3/uL (4.8-10.8)
[2020-06-22 05:14] LABS: CALCIUM 8.5 mg/dL (8.5-10.3); CREATININE 0.7 mg/dL (0.4-1.0)
[2020-06-22 05:20] LABS: ABNORMAL LYMPHS % (MANUAL) 0 %
[2020-06-22 06:08] LABS: BAND NEUTROPHILS % (MANUAL) 21 %; DIFFERENTIAL COMMENT MANUAL DIFFERENTIAL; LYMPHOCYTES # (MANUAL) 0.4 10^3/uL (1.5-3.5); LYMPHOCYTES % (MANUAL) 5 %; METAMYELOCYTES % (MANUAL) 3 %; MONOCYTES # (MANUAL) 0.5 10^3/uL (0.0-1.0); MYELOCYTES % (MANUAL) 5 %; PLATELET ESTIMATE, MANUAL NORMAL (130-450,000) (NORMAL); RBC MORPHOLOGY (MULTIPLE) NORMAL APPEARANCE (NORMAL)
[2020-06-22] MEDS: PANTOPRAZOLE 40 MG TABLET PO SCH (07:04)
[2020-06-22] MEDS: IPRATROPIUM/ALBUTEROL 3 ML NEB INH SCH ×3 (07:21→15:14)
[2020-06-22] MEDS: BUDESONIDE 0.5 MG/2 ML NEB INH SCH (07:21)
--- NOTE | 2020-06-22 08:24 | PROVIDER PROGRESS NOTE ---
Assessment/Plan - Problem List (1) Pneumonia Assessment/Plan: We will continue Zosyn. Initial plan had been to wean patient of oxygen today and ambulate her. However patient's oxygen saturation drops to the length and 90 when she is taken of oxygen. We will attempt to wean her off oxygen tomorrow again. We will also assess for home oxygen need tomorrow. Anticipate discharge in 2 days. (2) Acute respiratory failure with hypoxemia Assessment/Plan: Likely multifactorial due to bronchitis and pneumonia. Patient is on Zosyn. Patient is also receiving DuoNeb as needed. (3) B-cell lymphoma Qualifiers: B-cell lymphoma type: unspecified B-cell Lymphoma site: unspecified region Qualified Code(s): C85.10 - Unspecified B-cell lymphoma, unspecified site Assessment/Plan: Patient will follow up with oncology (Dr Goel at the [facility] [place]) once discharged. (4) GERD (gastroesophageal reflux disease) Assessment/Plan: On Protonix (5) Hypertension Assessment/Plan: On carvedilol 12.5 mg p.o. twice daily (6) Hypothyroidism Assessment/Plan: On Synthroid 100 mcg p.o. daily - Current Meds Current Meds: Current Medications Generic Name Dose Route Start Last Admin Trade Name Freq PRN Reason Stop Dose Admin Albuterol/Ipratropium 3 ml 06/19/20 23:00 06/22/20 07:21 Ipratropium/Albuterol 3 Ml Neb INH 3 ml RTQID CALISTA Administration Budesonide 0.5 mg 06/20/20 07:00 06/22/20 07:21 Budesonide 0.5 Mg/2 Ml Neb INH 0.5 mg RTBID CALIST[place] Administration Carvedilol 12.5 mg 06/21/20 21:00 06/21/20 20:52 Carvedilol 12.5 Mg Tablet PO 12.5 mg BID CALISTA Administration Enoxaparin Sodium 40 mg 06/20/20 09:00 06/21/20 09:07 Enoxaparin 40 Mg/0.4 Ml Syringe SUBQ 40 mg DAILY CALISTA Administration Guaifenesin 10 ml 06/19/20 22:27 06/21/20 23:08 Guaifenesin/Dextromethorphan 10 Ml Udc PO 10 ml Q6HR PRN Administration Cough Piperacillin Sod/Tazobactam 100 mls @ 200 mls/hr 06/19/20 23:00 06/22/20 05:03 Sod 3.375 gm/ Sodium Chloride IV Infused Q6H CALISTA Infusion Azithromycin 500 mg/ Sodium 250 mls @ 250 mls/hr 06/20/20 13:30 06/21/20 10:21 Chloride IV 06/24/20 09:59 Infused DAILY CALISTA Infusion Pantoprazole Sodium 40 mg 06/22/20 07:00 06/22/20 07:04 Pantoprazole 40 Mg Tablet PO 40 mg QDAC CALISTA Administration Sodium Chloride 10 ml 06/19/20 22:20 06/20/20 10:00 Sodium Chloride Flush 0.9% 10 Ml Syringe IVP 10 ml PRN PRN Administration NEEDED PER PROVIDER ORDERS Sodium Chloride 10 ml 06/20/20 01:00 06/22/20 04:33 Sodium Chloride Flush 0.9% 10 Ml Syringe IVP 10 ml 0100,0900,1700 CALISTA Administration Throat Lozenges 1 lozenge 06/22/20 04:10 06/22/20 04:34 Benzocaine/Menthol Lozenge MM 1 lozenge Q2HR PRN Administration Throat pain - Lab Result Fish Bone Diagrams: 06/22/20 04:32 06/22/20 04:32 - Additional Planning My Orders: My Active Orders 06/21/20 21:00 carvediloL [Coreg] 12.5 mg PO BID 06/22/20 07:00 Pantoprazole [Protonix] 40 mg PO QDAC 06/22/20 08:22 MAGNESIUM SULFATE 2 GRAMS IV X1 Magnesium Sulfate 2 Gram [Magnesium Sulfate] 2 gm in 50 ml IV ONCE Potassium Chloride [K-Dur] 40 meq PO ONCE ONE 06/22/20 09:00 Amitriptyline [Elavil] 25 mg PO DAILY Levothyroxine [Synthroid] 100 mcg PO DAILY 06/23/20 05:00 BMP - BASIC METABOLIC PANEL [CHEM] DAILYLAB CBC - COMP BLD CT W/AUTO DIFF [HEME] DAILYLAB 06/24/20 05:00 BMP - BASIC METABOLIC PANEL [CHEM] DAILYLAB CBC - COMP BLD CT W/AUTO DIFF [HEME] DAILYLAB Subjective - Subjective Patient Reports: Other (Patient was seated in bedside recliner at time of exam. She reports breathing better today. She denied any other complaints. However attempts to wean off oxygen results in a decrease of O2Sat to less than 90%.) Objective Vital Signs: Vital Signs - 24 hr 06/21/20 06/21/20 06/21/20 09:05 10:45 11:07 Temperature Heart Rate 84 Heart Rate [ Brachial] Respiratory 20 20 20 Rate Blood Pressure [Left Brachial artery] Blood Pressure [Right Brachial artery] O2 Saturation 93 97 06/21/20 06/21/20 06/21/20 11:46 15:35 15:55 Temperature 36.6 C Heart Rate 85 Heart Rate [ 89 Brachial] Respiratory 22 24 18 Rate Blood Pressure [Left Brachial artery] Blood Pressure 134/57 H [Right Brachial artery] O2 Saturation 94 97 06/21/20 06/22/20 06/22/20 20:00 00:30 07:22 Temperature 37.5 C Heart Rate 107 H 94 Heart Rate [ 93 Brachial] Respiratory 16 20 18 Rate Blood Pressure [Left Brachial artery] Blood Pressure 142/75 H [Right Brachial artery] O2 Saturation 94 06/22/20 08:00 Temperature 36.7 C Heart Rate Heart Rate [ 85 Brachial] Respiratory 18 Rate Blood Pressure 139/65 H [Left Brachial artery] Blood Pressure [Right Brachial artery] O2 Saturation 97 Oxygen O2 Source Nasal cannula I&O (Last 24 Hrs): Intake and Output Totals x24h 06/20/20 06/21/20 06/22/20 23:59 23:59 23:59 Intake Total 1280 2258 300 Output Total 1690 400 250 Balance -410 1858 50 General: Alert, Oriented x3, Mild distress HEENT: Atraumatic, PERRLA, EOMI Neck: Supple, No JVD Neuro: Alert, Oriented Times 3 Cardiovascular: Regular rate, Normal S1, Normal S2 Respiratory: Other (Coarse breath sounds. Mild crackles noted) Abdomen: Normal bowel sounds, No tenderness Extremities: No clubbing, No cyanosis, No edema - Results Results: Laboratory Results WBC 8.9 x10^3/uL (4.8-10.8) 06/22/20 04:32 RBC 3.39 10^6/uL (4.20-5.40) L 06/22/20 04:32 Hgb 8.2 g/dL (12.0-16.0) L 06/22/20 04:32 Hct 28.2 % (37.0-47.0) L 06/22/20 04:32 MCV 83.2 fL (81.0-99.0) 06/22/20 04:32 MCH 24.2 pg (27.0-31.0) L 06/22/20 04:32 MCHC 29.1 g/dL (32.0-36.0) L 06/22/20 04:32 RDW 13.8 % (12.0-15.0) 06/22/20 04:32 Plt Count 461 10^3/uL (130-450) H 06/22/20 04:32 MPV 9.6 fL (7.9-10.8) 06/22/20 04:32 Neut # (Auto) Not Reportable 06/22/20 04:32 Lymph # (Auto) Not Reportable 06/22/20 04:32 [place] # (Auto) Not Reportable 06/22/20 04:32 Eos # (Auto) Not Reportable 06/22/20 04:32 Baso # (Auto) Not Reportable 06/22/20 04:32 Absolute Nucleated RBC Not Reportable 06/22/20 04:32 Total Counted 100 06/22/20 04:32 Band Neuts % (Manual) 21 % (0-10) H 06/22/20 04:32 Reactive Lymphs % (Man) 1 % 06/19/20 18:30 Abnorm Lymph % (Manual) 0 % 06/22/20 04:32 Metamyelocytes % 3 % (-0) H 06/22/20 04:32 Myelocytes % 5 % (-0) H 06/22/20 04:32 Nucleated RBC % Not Reportable 06/22/20 04:32 Neutrophils # (Manual) 7.2 10^3/uL (1.5-6.6) H 06/22/20 04:32 Lymphocytes # (Manual) 0.4 10^3/uL (1.5-3.5) L 06/22/20 04:32 Monocytes # (Manual) 0.5 10^3/uL (0.0-1.0) 06/22/20 04:32 Eosinophils # (Manual) 0.0 10^3/uL (0-0.7) 06/22/20 04:32 Basophils # (Manual) 0.0 10^3/uL (0-0.1) 06/22/20 04:32 Differential Comment MANUAL DIFFERENTIAL 06/22/20 04:32 Manual Slide Review Indicated 06/20/20 08:12 WBC Morphology NORMAL APPEARANCE (NORMAL) 06/20/20 08:12 Platelet Estimate NORMAL (130-450,000) (NORMAL) 06/22/20 04:32 Platelet Morphology NORMAL APPEARANCE (NORMAL) 06/20/20 08:12 RBC Morph Micro Appear NORMAL APPEARANCE (NORMAL) 06/22/20 04:32 Sodium 138 mmol/L (135-145) 06/22/20 04:32 Potassium 3.1 mmol/L (3.5-5.0) L 06/22/20 04:32 Chloride 98 mmol/L (101-111) L 06/22/20 04:32 Carbon Dioxide 32 mmol/L (21-32) 06/22/20 04:32 Anion Gap 8.0 (6-13) 06/22/20 04:32 BUN 9 mg/dL (6-20) 06/22/20 04:32 Creatinine 0.7 mg/dL (0.4-1.0) 06/22/20 04:32 Estimated GFR (MDRD) 82 (>89) L 06/22/20 04:32 Glucose 136 mg/dL (70-100) H 06/22/20 04:32 Lactic Acid 1.2 mmol/L (0.5-2.2) 06/19/20 18:30 Calcium 8.5 mg/dL (8.5-10.3) 06/22/20 04:32 Magnesium 1.9 mg/dL (1.7-2.8) 06/21/20 06:50 Total Bilirubin 0.5 mg/dL (0.2-1.0) 06/19/20 18:30 AST 44 IU/L (10-42) H 06/19/20 18:30 ALT 40 IU/L (10-60) 06/19/20 18:30 Alkaline Phosphatase 151 IU/L (42-121) H 06/19/20 18:30 Troponin I High Sens 10.6 ng/L (2.3-14.8) 06/19/20 18:30 B-Natriuretic Peptide 294 pg/mL (5-100) H 06/19/20 18:30 Total Protein 7.5 g/dL (6.7-8.2) 06/19/20 18:30 Albumin 2.8 g/dL (3.2-5.5) L 06/19/20 18:30 Globulin 4.7 g/dL (2.1-4.2) H 06/19/20 18:30 Albumin/Globulin Ratio 0.6 (1.0-2.2) L 06/19/20 18:30 Urine Color YELLOW 06/20/20 08:12 Urine Clarity CLEAR (CLEAR) 06/20/20 08:12 Urine pH 6.0 PH (5.0-7.5) 06/20/20 08:12 Ur Specific [place] 1.020 (1.002-1.030) 06/20/20 08:12 Urine Protein >=300 mg/dL (NEGATIVE) H 06/20/20 08:12 Urine Glucose (UA) NEGATIVE mg/dL (NEGATIVE) 06/20/20 08:12 Urine Ketones TRACE mg/dL (NEGATIVE) 06/20/20 08:12 Urine Occult Blood LARGE (NEGATIVE) H 06/20/20 08:12 Urine Nitrite NEGATIVE (NEGATIVE) 06/20/20 08:12 Urine Bilirubin NEGATIVE (NEGATIVE) 06/20/20 08:12 Urine Urobilinogen 0.2 (NORMAL) E.U./dL (NORMAL) 06/20/20 08:12 Ur Leukocyte Esterase NEGATIVE (NEGATIVE) 06/20/20 08:12 Urine RBC 6-10 /HPF (0-5) H 06/20/20 08:12 Urine WBC 0-3 /HPF (0-5) 06/20/20 08:12 Urine WBC Clumps Cancelled 06/20/20 08:12 Ur Epithelial Cells Cancelled 06/20/20 08:12 Ur Squamous Epith Cells FEW Squamous (<= Few) 06/20/20 08:12 Urine Crystals Cancelled 06/20/20 08:12 Amorphous Sediment Cancelled 06/20/20 08:12 Urine Bacteria Few /HPF (None Seen) 06/20/20 08:12 Urine Casts Cancelled 06/20/20 08:12 Urine Starch Cancelled 06/20/20 08:12 Urine Mucus Cancelled 06/20/20 08:12 Urine Trichomonas Cancelled 06/20/20 08:12 Urine Yeast Cancelled 06/20/20 08:12 Urine Sperm Cancelled 06/20/20 08:12 Ur Oval Fat Bodies Cancelled 06/20/20 08:12 Ur Microscopic Review INDICATED 06/20/20 08:12 Urine Culture Comments NOT INDICATED 06/20/20 08:12 Nasal Adenovirus (PCR) NOT DETECTED 06/19/20 18:40 Nasal B. parapertussis DNA (PCR) NOT DETECTED 06/19/20 18:40 Nasal Coronavir 229E PCR NOT DETECTED 06/19/20 18:40 Nasal Coronavir HKU1 PCR NOT DETECTED 06/19/20 18:40 Nasal Coronavir NL63 PCR NOT DETECTED 06/19/20 18:40 Nasal Coronavir OC43 PCR NOT DETECTED 06/19/20 18:40 Nasal Enterovir/Rhinovir PCR NOT DETECTED 06/19/20 18:40 Nasal Influenza B PCR NOT DETECTED 06/19/20 18:40 Nasal Influenza A PCR NOT DETECTED 06/19/20 18:40 Nasal Parainfluen 1 PCR NOT DETECTED 06/19/20 18:40 Nasal Parainfluen 2 PCR NOT DETECTED 06/19/20 18:40 Nasal Parainfluen 3 PCR NOT DETECTED 06/19/20 18:40 Nasal Parainfluen 4 PCR NOT DETECTED 06/19/20 18:40 Nasal RSV (PCR) NOT DETECTED 06/19/20 18:40 Nasal Screen MRSA (PCR) NEGATIVE (NEGATIVE) 06/20/20 00:12 Nasal B.pertussis DNA PCR NOT DETECTED 06/19/20 18:40 Nasal C.pneumoniae (PCR) NOT DETECTED 06/19/20 18:40 [place] Human Metapneumo PCR NOT DETECTED 06/19/20 18:40 Nasal M.pneumoniae (PCR) NOT DETECTED 06/19/20 18:40 Nasal SARS-CoV-2 (PCR) NOT DETECTED 06/19/20 18:40 - Procedures Procedures: Procedures EXCISION OF MESENTERIC LYMPHATIC, OPEN APPROACH, DIAGNOSTIC (05/18/20) ABX Reporting Has patient been on IV antibiotics over the past 48 hours?: Yes
[2020-06-22] MEDS: AZITHROMYCIN INJ 500 MG in SODIUM CHLORIDE 0.9% 250 ML IV SCH (08:30)
[2020-06-22] MEDS: ENOXAPARIN 40 MG/0.4 ML SYRINGE SUBQ SCH (08:35)
[2020-06-22] MEDS: carvediloL 12.5 MG TABLET PO SCH ×2 (08:35→20:42)
[2020-06-22] MEDS: AMITRIPTYLINE 25 MG TABLET PO SCH (08:35)
[2020-06-22] MEDS: LEVOTHYROXINE 100 MCG TABLET PO SCH (08:35)
[2020-06-22] MEDS ORDERED: FUROSEMIDE 20 MG/2 ML VIAL IVP STA (08:42)
[2020-06-22] MEDS: guaiFENesin 600 MG TABLET PO SCH ×2 (08:54→22:06)
[2020-06-22] MEDS ORDERED: MAGNESIUM SULFATE 2 GRAM 2 GM/50 ML BAG IV ONE (09:00)
[2020-06-22] MEDS ORDERED: POTASSIUM CHLORIDE 20 MEQ TABLET PO ONE (09:00)
--- NOTE | 2020-06-22 09:17 | XRAY Report ---
PROCEDURE: Chest 1 View X-Ray INDICATIONS: crackles, hypoxia TECHNIQUE: One view of the chest was acquired. COMPARISON: 06/19/2020 FINDINGS: Surgical changes and devices: None. Lungs and pleura: Persistent diffuse interstitial prominence with more patchy opacities involving the right middle lung zone and left lung base. More linear opacity is visualized along the right perihil ar region. Possible trace bilateral pleural effusions. No pneumothorax. Mediastinum: Mediastinal contours appear stable. Heart size is normal. Bones and chest wall: No suspicious bony lesions. Overlying soft tissues appear unremarkable. IMPRESSION: Persistent diffuse interstitial prominence with patchy right middle lung zone and left basilar opacit ies compatible with an inflammatory/infectious process with viral or atypical organism being the most likely etiology. New linear perihilar opacity may represent atelectasis and/or developing focal airs pace disease. Reviewed by: Rigoberto Viveros MD on 06/22/2020 8:16 AM [facility] Approved by: Rigoberto Viveros MD on 06/22/2020 8:16 AM [facility] Station ID: [id number]
[2020-06-22] MEDS: SODIUM CHLORIDE FLUSH 0.9% 10 ML SYRINGE IVP PRN (12:11)
[2020-06-23] MEDS: BENZOCAINE/MENTHOL LOZENGE MM PRN (03:23)
[2020-06-23] MEDS: IPRATROPIUM/ALBUTEROL 3 ML NEB INH SCH ×5 (03:23→19:45)
[2020-06-23] MEDS: BUDESONIDE 0.5 MG/2 ML NEB INH SCH ×3 (03:23→19:45)
[2020-06-23] MEDS: guaiFENesin/DEXTROMETHORPHAN 10 ML UDC PO PRN (03:23)
[2020-06-23] MEDS: PIPERACILLIN/TAZOBACTAM 3.375 GM in SODIUM CHLORIDE 0.9% MINIBAG 100 ML IV SCH (04:40)
[2020-06-23] MEDS: SODIUM CHLORIDE FLUSH 0.9% 10 ML SYRINGE IVP PRN (04:40)
[2020-06-23 05:16] LABS: BASOPHILS % (AUTO) 0.9 %; EOSINOPHILS % (AUTO) 0.8 %; HGB - HEMOGLOBIN 8.4 g/dL (12.0-16.0); LYMPHOCYTES % (AUTO) 9.5 %; MEAN CORPUSCULAR HEMOGLOBIN 23.8 pg (27.0-31.0); MEAN CORPUSCULAR HGB CONC 28.6 g/dL (32.0-36.0); MEAN CORPUSCULAR VOLUME 83.3 fL (81.0-99.0); MEAN PLATELET VOLUME 9.4 fL (7.9-10.8); MONOCYTES % (AUTO) 7.7 %; NEUTROPHILS % (AUTO) 59.4 %; PLT - PLATELET COUNT 521 10^3/uL (130-450); RED BLOOD COUNT 3.53 10^6/uL (4.20-5.40); RED CELL DISTRIBUTION WIDTH 14.3 % (12.0-15.0); WHITE BLOOD COUNT 8.6 x10^3/uL (4.8-10.8)
[2020-06-23 05:25] LABS: CALCIUM 8.3 mg/dL (8.5-10.3); CREATININE 0.7 mg/dL (0.4-1.0)
[2020-06-23 05:34] LABS: ABNORMAL LYMPHS % (MANUAL) 0 %
[2020-06-23 06:13] LABS: BAND NEUTROPHILS % (MANUAL) 11 %; DIFFERENTIAL COMMENT MANUAL DIFFERENTIAL; LYMPHOCYTES # (MANUAL) 0.5 10^3/uL (1.5-3.5); LYMPHOCYTES % (MANUAL) 6 %; METAMYELOCYTES % (MANUAL) 4 %; MONOCYTES # (MANUAL) 0.6 10^3/uL (0.0-1.0); MYELOCYTES % (MANUAL) 5 %; PLATELET ESTIMATE, MANUAL INCREASED (>450,000) (NORMAL); RBC MORPHOLOGY (MULTIPLE) NORMAL APPEARANCE (NORMAL)
[2020-06-23] MEDS: PANTOPRAZOLE 40 MG TABLET PO SCH (06:24)
[2020-06-23] MEDS ORDERED: POTASSIUM CHLORIDE 20 MEQ TABLET PO ONE (08:39)
--- NOTE | 2020-06-23 08:39 | PROVIDER PROGRESS NOTE ---
Assessment/Plan - Problem List (1) Pneumonia Assessment/Plan: Zosyn discontinued today. Patient weaned off oxygen and her oxygen saturation maintained above 90 even with ambulation. Plan would be to discharge the patient tomorrow. (2) Acute respiratory failure with hypoxemia Assessment/Plan: Patient's respiratory status improved with antibiotics. She completed 5 days of antibiotics. (3) B-cell lymphoma Qualifiers: B-cell lymphoma type: unspecified B-cell Lymphoma site: unspecified region Qualified Code(s): C85.10 - Unspecified B-cell lymphoma, unspecified site Assessment/Plan: Patient will [place] up with [place] [facility] [place]. (4) GERD (gastroesophageal reflux disease) Assessment/Plan: On Protonix (5) Hypertension Assessment/Plan: On carvedilol 12.5 mg p.o. twice daily (6) Hypothyroidism Assessment/Plan: On Synthroid 100 mcg p.o. daily - Current Meds Current Meds: Current Medications Generic Name Dose Route Start Last Admin Trade Name Freq PRN Reason Stop Dose Admin Albuterol 2.5 mg 06/20/20 07:48 06/23/20 03:34 Albuterol Neb 2.5 Mg/3 Ml INH 2.5 mg RTQ4H PRN Administration Wheezing Albuterol/Ipratropium 3 ml 06/19/20 23:00 06/23/20 07:39 Ipratropium/Albuterol 3 Ml Neb INH 3 ml RTQID CALISTA Administration Amitriptyline HCl 25 mg 06/22/20 09:00 06/22/20 08:35 Amitriptyline 25 Mg Tablet PO 25 mg DAILY CALISTA Administration Budesonide 0.5 mg 06/20/20 07:00 06/23/20 07:39 Budesonide 0.5 Mg/2 Ml Neb INH 0.5 mg RTBID CALISTA Administration Carvedilol 12.5 mg 06/21/20 21:00 06/22/20 20:42 Carvedilol 12.5 Mg Tablet PO 12.5 mg BID CALISTA Administration Enoxaparin Sodium 40 mg 06/20/20 09:00 06/22/20 08:35 Enoxaparin 40 Mg/0.4 Ml Syringe SUBQ 40 mg DAILY CALISTA Administration Guaifenesin 10 ml 06/19/20 22:27 06/23/20 03:23 Guaifenesin/Dextromethorphan 10 Ml Udc PO 10 ml Q6HR PRN Administration Cough Guaifenesin 600 mg 06/22/20 09:00 06/22/20 22:06 Guaifenesin 600 Mg Tablet PO 600 mg BID CALISTA Administration Piperacillin Sod/Tazobactam 100 mls @ 200 mls/hr 06/19/20 23:00 06/23/20 05:18 Sod 3.375 gm/ Sodium Chloride IV Infused Q6H CALISTA Infusion Levothyroxine Sodium 100 mcg 06/22/20 09:00 06/22/20 08:35 Levothyroxine 100 Mcg Tablet PO 100 mcg DAILY CALISTA Administration Pantoprazole Sodium 40 mg 06/22/20 07:00 06/23/20 06:24 Pantoprazole 40 Mg Tablet PO 40 mg QDAC CALISTA Administration Sodium Chloride 10 ml 06/19/20 22:20 06/23/20 04:40 Sodium Chloride Flush 0.9% 10 Ml Syringe IVP 10 ml PRN PRN Administration NEEDED PER PROVIDER ORDERS Sodium Chloride 10 ml 06/20/20 01:00 06/22/20 23:42 Sodium Chloride Flush 0.9% 10 Ml Syringe IVP 10 ml 0100,0900,1700 CALISTA Administration Throat Lozenges 1 lozenge 06/22/20 04:10 06/23/20 03:23 Benzocaine/Menthol Lozenge MM 1 lozenge Q2HR PRN Administration Throat pain - Lab Result Fish Bone Diagrams: 06/23/20 04:00 06/23/20 04:00 - Additional Planning My Orders: My Active Orders 06/22/20 09:00 Amitriptyline [Elavil] 25 mg PO DAILY Levothyroxine [Synthroid] 100 mcg PO DAILY guaiFENesin [Mucinex] 600 mg PO BID 06/22/20 Dinner Soft Mechanical Diet [DIET] 06/24/20 05:00 BMP - BASIC METABOLIC PANEL [CHEM] DAILYLAB CBC - COMP BLD CT W/AUTO DIFF [HEME] DAILYLAB Subjective - Subjective Patient Reports: Other (Thrasher appeared to be breathing better today. She was weaned off oxygen this morning and her oxygen saturation stayed above 90s even with ambulation. She complained of not sleeping well. She is also weak) Objective Vital Signs: Vital Signs - 24 hr 06/22/20 06/22/2006/22/21 11:16 11:20 14:30 Temperature 36.6 C Heart Rate 81 Heart Rate [ 90 Brachial] Respiratory 18 19 22 Rate Blood Pressure 141/79 H [Left Brachial artery] Blood Pressure [Right Brachial artery] O2 Saturation 100 94 06/22/20 06/22/20 06/22/20 15:14 16:00 16:13 Temperature 36.8 C 36.8 C Heart Rate 90 90 Heart Rate [ 92 Brachial] Respiratory 20 20 20 Rate Blood Pressure [Left Brachial artery] Blood Pressure 117/57 L [Right Brachial artery] O2 Saturation 94 94 06/22/20 06/23/20 06/23/20 23:48 03:34 07:39 Temperature 36.9 C Heart Rate 87 89 Heart Rate [ 94 Brachial] Respiratory 18 16 16 Rate Blood Pressure 136/71 H [Left Brachial artery] Blood Pressure [Right Brachial artery] O2 Saturation 93 06/23/20 08:00 Temperature 37.0 C Heart Rate Heart Rate [ 90 Brachial] Respiratory 18 Rate Blood Pressure [Left Brachial artery] Blood Pressure 147/76 H [Right Brachial artery] O2 Saturation 95 Oxygen O2 Source Nasal cannula I&O (Last 24 Hrs): Intake and Output Totals x24h 06/21/20 06/22/20 06/23/20 23:59 23:59 23:59 Intake Total 2258 1850 300 Output Total 400 1225 Balance 1858 625 300 General: Alert, Oriented x3, Mild distress, Moderate distress HEENT: PERRLA, EOMI Neck: Supple, No JVD Neuro: Alert, Non Focal, Oriented Times 3 Cardiovascular: Other (Sinus Tachycardic) Respiratory: Other (Coarse breath sounds, mild crackles) Abdomen: Normal bowel sounds, Soft Extremities: No clubbing, No cyanosis, No edema Skin: No rashes - Results Results: Laboratory Results WBC 8.6 x10^3/uL (4.8-10.8) 06/23/20 04:00 RBC 3.53 10^6/uL (4.20-5.40) L 06/23/20 04:00 Hgb 8.4 g/dL (12.0-16.0) L 06/23/20 04:00 Hct 29.4 % (37.0-47.0) L 06/23/20 04:00 MCV 83.3 fL (81.0-99.0) 06/23/20 04:00 MCH 23.8 pg (27.0-31.0) L 06/23/20 04:00 MCHC 28.6 g/dL (32.0-36.0) L 06/23/20 04:00 RDW 14.3 % (12.0-15.0) 06/23/20 04:00 Plt Count 521 10^3/uL (130-450) H 06/23/20 04:00 MPV 9.4 fL (7.9-10.8) 06/23/20 04:00 Neut # (Auto) Not Reportable 06/23/20 04:00 Lymph # (Auto) Not Reportable 06/23/20 04:00 [place] # (Auto) Not Reportable 06/23/20 04:00 Eos # (Auto) Not Reportable 06/23/20 04:00 Baso # (Auto) Not Reportable 06/23/20 04:00 Absolute Nucleated RBC Not Reportable 06/23/20 04:00 Total Counted 100 06/23/20 04:00 Band Neuts % (Manual) 11 % (0-10) H 06/23/20 04:00 Reactive Lymphs % (Man) 1 % 06/19/20 18:30 Abnorm Lymph % (Manual) 0 % 06/23/20 04:00 Metamyelocytes % 4 % (-0) H 06/23/20 04:00 Myelocytes % 5 % (-0) H 06/23/20 04:00 Nucleated RBC % Not Reportable 06/23/20 04:00 Neutrophils # (Manual) 6.7 10^3/uL (1.5-6.6) H 06/23/20 04:00 Lymphocytes # (Manual) 0.5 10^3/uL (1.5-3.5) L 06/23/20 04:00 Monocytes # (Manual) 0.6 10^3/uL (0.0-1.0) 06/23/20 04:00 Eosinophils # (Manual) 0.0 10^3/uL (0-0.7) 06/23/20 04:00 Basophils # (Manual) 0.0 10^3/uL (0-0.1) 06/23/20 04:00 Differential Comment MANUAL DIFFERENTIAL 06/23/20 04:00 Manual Slide Review Indicated 06/20/20 08:12 WBC Morphology NORMAL APPEARANCE (NORMAL) 06/20/20 08:12 Platelet Estimate INCREASED (>450,000) (NORMAL) 06/23/20 04:00 Platelet Morphology NORMAL APPEARANCE (NORMAL) 06/20/20 08:12 RBC Morph Micro Appear NORMAL APPEARANCE (NORMAL) 06/23/20 04:00 Sodium 140 mmol/L (135-145) 06/23/20 04:00 Potassium 3.1 mmol/L (3.5-5.0) L 06/23/20 04:00 Chloride 99 mmol/L (101-111) L 06/23/20 04:00 Carbon Dioxide 31 mmol/L (21-32) 06/23/20 04:00 Anion Gap 10.0 (6-13) 06/23/20 04:00 BUN 10 mg/dL (6-20) 06/23/20 04:00 Creatinine 0.7 mg/dL (0.4-1.0) 06/23/20 04:00 Estimated GFR (MDRD) 82 (>89) L 06/23/20 04:00 Glucose 139 mg/dL (70-100) H 06/23/20 04:00 Lactic Acid 1.2 mmol/L (0.5-2.2) 06/19/20 18:30 Calcium 8.3 mg/dL (8.5-10.3) L 06/23/20 04:00 Magnesium 1.9 mg/dL (1.7-2.8) 06/21/20 06:50 Total Bilirubin 0.5 mg/dL (0.2-1.0) 06/19/20 18:30 AST 44 IU/L (10-42) H 06/19/20 18:30 ALT 40 IU/L (10-60) 06/19/20 18:30 Alkaline Phosphatase 151 IU/L (42-121) H 06/19/20 18:30 Troponin I High Sens 10.6 ng/L (2.3-14.8) 06/19/20 18:30 B-Natriuretic Peptide 294 pg/mL (5-100) H 06/19/20 18:30 Total Protein 7.5 g/dL (6.7-8.2) 06/19/20 18:30 Albumin 2.8 g/dL (3.2-5.5) L 06/19/20 18:30 Globulin 4.7 g/dL (2.1-4.2) H 06/19/20 18:30 Albumin/Globulin Ratio 0.6 (1.0-2.2) L 06/19/20 18:30 Urine Color YELLOW 06/20/20 08:12 Urine Clarity CLEAR (CLEAR) 06/20/20 08:12 Urine pH 6.0 PH (5.0-7.5) 06/20/20 08:12 Ur Specific [place] 1.020 (1.002-1.030) 06/20/20 08:12 Urine Protein >=300 mg/dL (NEGATIVE) H 06/20/20 08:12 Urine Glucose (UA) NEGATIVE mg/dL (NEGATIVE) 06/20/20 08:12 Urine Ketones TRACE mg/dL (NEGATIVE) 06/20/20 08:12 Urine Occult Blood LARGE (NEGATIVE) H 06/20/20 08:12 Urine Nitrite NEGATIVE (NEGATIVE) 06/20/20 08:12 Urine Bilirubin NEGATIVE (NEGATIVE) 06/20/20 08:12 Urine Urobilinogen 0.2 (NORMAL) E.U./dL (NORMAL) 06/20/20 08:12 Ur Leukocyte Esterase NEGATIVE (NEGATIVE) 06/20/20 08:12 Urine RBC 6-10 /HPF (0-5) H 06/20/20 08:12 Urine WBC 0-3 /HPF (0-5) 06/20/20 08:12 Urine WBC Clumps Cancelled 06/20/20 08:12 Ur Epithelial Cells Cancelled 06/20/20 08:12 Ur Squamous Epith Cells FEW Squamous (<= Few) 06/20/20 08:12 Urine Crystals Cancelled 06/20/20 08:12 Amorphous Sediment Cancelled 06/20/20 08:12 Urine Bacteria Few /HPF (None Seen) 06/20/20 08:12 Urine Casts Cancelled 06/20/20 08:12 Urine Starch Cancelled 06/20/20 08:12 Urine Mucus Cancelled 06/20/20 08:12 Urine Trichomonas Cancelled 06/20/20 08:12 Urine Yeast Cancelled 06/20/20 08:12 Urine Sperm Cancelled 06/20/20 08:12 Ur Oval Fat Bodies Cancelled 06/20/20 08:12 Ur Microscopic Review INDICATED 06/20/20 08:12 Urine Culture Comments NOT INDICATED 06/20/20 08:12 Nasal Adenovirus (PCR) NOT DETECTED 06/19/20 18:40 Nasal B. parapertussis DNA (PCR) NOT DETECTED 06/19/20 18:40 Nasal Coronavir 229E PCR NOT DETECTED 06/19/20 18:40 Nasal Coronavir HKU1 PCR NOT DETECTED 06/19/20 18:40 Nasal Coronavir NL63 PCR NOT DETECTED 06/19/20 18:40 Nasal Coronavir OC43 PCR NOT DETECTED 06/19/20 18:40 Nasal Enterovir/Rhinovir PCR NOT DETECTED 06/19/20 18:40 Nasal Influenza B PCR NOT DETECTED 06/19/20 18:40 Nasal Influenza A PCR NOT DETECTED 06/19/20 18:40 Nasal Parainfluen 1 PCR NOT DETECTED 06/19/20 18:40 Nasal Parainfluen 2 PCR NOT DETECTED 06/19/20 18:40 Nasal Parainfluen 3 PCR NOT DETECTED 06/19/20 18:40 Nasal Parainfluen 4 PCR NOT DETECTED 06/19/20 18:40 Nasal RSV (PCR) NOT DETECTED 06/19/20 18:40 Nasal Screen MRSA (PCR) NEGATIVE (NEGATIVE) 06/20/20 00:12 Nasal B.pertussis DNA PCR NOT DETECTED 06/19/20 18:40 Nasal C.pneumoniae (PCR) NOT DETECTED 06/19/20 18:40 [place] Human Metapneumo PCR NOT DETECTED 06/19/20 18:40 Nasal M.pneumoniae (PCR) NOT DETECTED 06/19/20 18:40 Nasal SARS-CoV-2 (PCR) NOT DETECTED 06/19/20 18:40 - Procedures Procedures: Procedures EXCISION OF MESENTERIC LYMPHATIC, OPEN APPROACH, DIAGNOSTIC (05/18/20) ABX Reporting Has patient been on IV antibiotics over the past 48 hours?: No
[2020-06-23] MEDS: guaiFENesin 600 MG TABLET PO SCH ×2 (08:46→21:27)
[2020-06-23] MEDS: carvediloL 12.5 MG TABLET PO SCH ×2 (08:46→21:27)
[2020-06-23] MEDS: LEVOTHYROXINE 100 MCG TABLET PO SCH (08:46)
[2020-06-23] MEDS: AMITRIPTYLINE 25 MG TABLET PO SCH (08:46)
[2020-06-23] MEDS: ENOXAPARIN 40 MG/0.4 ML SYRINGE SUBQ SCH (08:46)
[2020-06-23] MEDS: POTASSIUM CHLOR 10 MEQ/100 ML 10 MEQ/100 ML BAG IV SCH ×2 (09:16→10:21)
[2020-06-23] MEDS: SODIUM CHLORIDE FLUSH 0.9% 10 ML SYRINGE IVP SCH ×3 (09:17→23:58)
[2020-06-23 10:10] LABS: % IRON SATURATION 10 % (20-50); IRON 22 ug/dL (28-170); TOTAL IRON BINDING CAPACITY 213 ug/dL (250-450); TRANSFERRIN 152 mg/dL (192-382)
[2020-06-23] MEDS ORDERED: FUROSEMIDE 40 MG/4 ML VIAL IVP STA (11:03)
[2020-06-24 05:24] LABS: BASOPHILS % (AUTO) 0.4 %; EOSINOPHILS % (AUTO) 0.9 %; HGB - HEMOGLOBIN 9.6 g/dL (12.0-16.0); LYMPHOCYTES % (AUTO) 10.6 %; MEAN CORPUSCULAR HEMOGLOBIN 24.4 pg (27.0-31.0); MEAN CORPUSCULAR HGB CONC 29.3 g/dL (32.0-36.0); MEAN CORPUSCULAR VOLUME 83.5 fL (81.0-99.0); MEAN PLATELET VOLUME 9.3 fL (7.9-10.8); MONOCYTES % (AUTO) 9.3 %; NEUTROPHILS % (AUTO) 58.3 %; PLT - PLATELET COUNT 687 10^3/uL (130-450); RED BLOOD COUNT 3.93 10^6/uL (4.20-5.40); RED CELL DISTRIBUTION WIDTH 14.2 % (12.0-15.0); WHITE BLOOD COUNT 10.7 x10^3/uL (4.8-10.8)
[2020-06-24 05:25] LABS: CREATININE 0.7 mg/dL (0.4-1.0)
[2020-06-24 05:31] LABS: ABNORMAL LYMPHS % (MANUAL) 0 %
[2020-06-24 07:03] LABS: BAND NEUTROPHILS % (MANUAL) 3 %; EOSINOPHILS # (MANUAL) 0.2 10^3/uL (0-0.7); LYMPHOCYTES # (MANUAL) 1.3 10^3/uL (1.5-3.5); LYMPHOCYTES % (MANUAL) 12 %; METAMYELOCYTES % (MANUAL) 3 %; MONOCYTES # (MANUAL) 0.9 10^3/uL (0.0-1.0); MYELOCYTES % (MANUAL) 5 %; PLATELET ESTIMATE, MANUAL INCREASED (>450,000) (NORMAL); PLATELET MORPHOLOGY NORMAL APPEARANCE (NORMAL); RBC MORPHOLOGY (MULTIPLE) 1+ HYPOCHROMASIA (NORMAL)
[2020-06-24 07:04] LABS: DIFFERENTIAL COMMENT MANUAL DIFFERENTIAL
--- NOTE | 2020-06-24 07:51 | DISCHARGE SUMMARY ---
Discharge Summary Admit Date: 06/19/20 Discharge Date: 06/24/20 Code Status: Attempt Resuscitation Condition at Discharge: Stable Discharge Disposition: 01 Home, Self Care - DIAGNOSES Discharge Diagnoses with Status of Each Condition: Pneumonia:Improved/resolved Acute respiratory failure with hypoxia:Resolved B-cell lymphoma: Ongoing to follow-up with oncology GERD: Chronic Hypertension: Chronic Hypothyroidism: Chronic - HPI History of Present Illness: 75-year-old female with history of diffuse B-cell lymphoma who gets her oncology care at the [facility] [place] [facility]. She presented with dyspnea and work-up showed she had pneumonia. The patient was placed on supplemental oxygen, antibiotics which included Zosyn and azithromycin. She was treated over the course of 5 days. She also seem to have crackles and was given some Lasix She underwent 2D echocardiogram which was unremarkable for any significant findings. Her ejection fraction was 60 to 65%. Over the course of the 5 days her oxygen requirement steadily decreased and she was weaned off oxygen. She underwent an ambulatory oximetry study and was determined that she did not require oxygen for home. On the day of discharge she was sent home with home health, PT OT. She was also prescribed front wheel walker. The patient missed her next oncology appointment because it coincided with the day of her admission to the hospital. She is to call and reschedule with the [facility] clinic. The above was discussed with the patient and she expressed understanding. - ALLERGIES Allergies/Adverse Reactions: Allergies Allergy/AdvReac Type Severity Reaction Status Date / Time morphine AdvReac Emesis Verified 06/19/20 18:13 shellfish derived AdvReac Emesis Verified 06/19/20 18:13 - MEDICATIONS Home Medications: Ambulatory Orders Medication Instructions Recorded Confirmed Amitriptyline [Elavil] 25 mg PO DAILY 05/29/18 06/20/20 Calcium/Magnesium/Zinc 1 tab PO DAILY 05/29/18 06/20/20 [Nwszdum-Qeukpbbsh-Olwo Tablet] Estrogens, Conjugated [Premarin] 0.625 mg PO DAILY 05/29/18 06/13/20 Levothyroxine [Synthroid] 100 mcg PO DAILY 05/29/18 06/20/20 Multivitamin [Multiple Vitamins] 1 tab PO DAILY 05/29/18 06/20/20 carvediloL [Carvedilol] 12.5 mg PO BID 05/29/18 06/20/20 Cholecalciferol [Vitamin D3] 25 mcg PO DAILY 05/15/20 06/20/20 Omeprazole 20 mg PO DAILY 05/15/20 06/20/20 Lidocaine/Prilocain 2.5% Cream 5 applic TOP UD #1 tube 06/14/20 06/20/20 [Emla 2.5% Cream] Olanzapine [Zyprexa] 5 mg PO UD #20 tablet 06/14/20 06/20/20 Prochlorperazine Maleate 10 mg PO Q6HR PRN #30 tab 06/14/20 06/20/20 [Compazine] predniSONE [Prednisone] 100 mg PO UD #25 tab 06/14/20 06/20/20 - PHYSICAL EXAM AT DISCHARGE General Appearance: positive: No acute distress, Alert Eyes Bilateral: positive: PERRL, EOMI ENT: positive: ENT inspection nml, No signs of dehydration Neck: positive: No JVD, Trachea midline Respiratory: positive: Chest non-tender, No respiratory distress, Other (Coarse breath sounds) Cardiovascular: positive: Regular rate & rhythm, No murmur Abdomen: positive: Non-tender, No organomegaly, No distention. negative: Guarding, Rebound Back: positive: Nml inspection Skin: positive: Color nml, No rash, Warm, Dry Extremities: positive: Non-tender, Full ROM, Nml appearance, No pedal edema Neurologic/Psychiatric: positive: Oriented x3, Mood/affect nml - LABS Result Diagrams: 06/24/20 05:00 06/24/20 05:00 - TIME SPENT Time Spent in Discharge (Minutes): 25
--- NOTE | 2020-06-24 07:53 | Discharge Plan ---
Discharge Plan Problem Reviewed?: Yes Disposition: 01 Home, Self Care Condition: Stable Diet: Regular Activity Restrictions: Additional Comments (Using walker as need) Shower Restrictions: No Assistance Devices: Walker Health Concerns: You were admitted 5 days ago with acute hypoxic respiratory failure. At the time you were requiring supplemental oxygen. Work-up included a CT of the chest All this was negative for any blood clot in your lungs it showed a pneumonia. You were placed on an antibiotic called Zosyn Intravenously for 5 days and azithromycin Intravenously for 3 days. Steadily improved over the course of the 5-day stay in the hospital. We were able to take you off oxygen on Day 4. You were able to walk around without needing oxygen and without your oxygen supply dropping level 90%. You also had crackles when we listened to your lungs and it raises concern for possible fluid. You were given 2 doses of Lasix which is a water pill and it helped diurese some fluid out a few You had an echocardiogram of your heart done which showed that there was no significant abnormality. Your heart peck were functioning well and your ejection fraction was 60 to 65% which is normal. You are being discharged home with home health. You will also be prescribed a walker to use as needed at home. You are to contact your oncologist at the [facility] And reschedule your next appointment. You had missed the last appointment because you were in the hospital on that day. Plan of Treatment: You were admitted 5 days ago with acute hypoxic respiratory failure. At the time you were requiring supplemental oxygen. Work-up included a CT of the chest All this was negative for any blood clot in your lungs it showed a pneumonia. You were placed on an antibiotic called Zosyn Intravenously for 5 days and azithromycin Intravenously for 3 days. Steadily improved over the course of the 5-day stay in the hospital. We were able to take you off oxygen on Day 4. You were able to walk around without needing oxygen and without your oxygen supply dropping level 90%. You also had crackles when we listened to your lungs and it raises concern for possible fluid. You were given 2 doses of Lasix which is a water pill and it helped diurese some fluid out a few You had an echocardiogram of your heart done which showed that there was no significant abnormality. Your heart peck were functioning well and your ejection fraction was 60 to 65% which is normal. You are being discharged home with home health. You will also be prescribed a walker to use as needed at home. You are to contact your oncologist at the [facility] And reschedule your next appointment. You had missed the last appointment because you were in the hospital on that day. Care Goals: You were admitted 5 days ago with acute hypoxic respiratory failure. At the time you were requiring supplemental oxygen. Work-up included a CT of the chest All this was negative for any blood clot in your lungs it showed a pneumonia. You were placed on an antibiotic called Zosyn Intravenously for 5 days and azithromycin Intravenously for 3 days. Steadily improved over the course of the 5-day stay in the hospital. We were able to take you off oxygen on Day 4. You were able to walk around without needing oxygen and without your oxygen supply dropping level 90%. You also had crackles when we listened to your lungs and it raises concern for possible fluid. You were given 2 doses of Lasix which is a water pill and it helped diurese some fluid out a few You had an echocardiogram of your heart done which showed that there was no significant abnormality. Your heart peck were functioning well and your ejection fraction was 60 to 65% which is normal. You are being discharged home with home health. You will also be prescribed a walker to use as needed at home. You are to contact your oncologist at the [facility] And reschedule your next appointment. You had missed the last appointment because you were in the hospital on that day. No Smoking: If you smoke, Please STOP! Call for help. Follow-up with: Alessia Ga MD [Primary Care Provider] -
[2020-06-24] MEDS: IPRATROPIUM/ALBUTEROL 3 ML NEB INH SCH ×2 (08:10→11:17)
[2020-06-24] MEDS: BUDESONIDE 0.5 MG/2 ML NEB INH SCH (08:10)
[2020-06-24] MEDS: guaiFENesin 600 MG TABLET PO SCH (09:57)
[2020-06-24] MEDS: carvediloL 12.5 MG TABLET PO SCH (09:57)
[2020-06-24] MEDS: PANTOPRAZOLE 40 MG TABLET PO SCH (09:57)
[2020-06-24] MEDS: LEVOTHYROXINE 100 MCG TABLET PO SCH (09:57)
[2020-06-24] MEDS: SODIUM CHLORIDE FLUSH 0.9% 10 ML SYRINGE IVP SCH (09:58)
[2020-06-24] MEDS: AMITRIPTYLINE 25 MG TABLET PO SCH (09:58)
[2020-06-24] MEDS: ENOXAPARIN 40 MG/0.4 ML SYRINGE SUBQ SCH (09:58)
[2020-06-24 12:20] VITALS: BP 120/73
== END 2020-06-24 12:40 | disposition home or self-care (01) | DRG 193 ==
LOC: ED 18:06 → MS2 22:20
PROVIDERS: ADMIT Internal Medicine; ATTEND Internal Medicine
DX: R09.02 Hypoxemia (principal); J12.9 Viral pneumonia, unspecified; C85.10 Unspecified B-cell lymphoma, unspecified site; J18.9 Pneumonia, unspecified organism; J96.01 Acute respiratory failure with hypoxia; Z20.822 Contact with and (suspected) exposure to COVID-19; C83.30 Diffuse large B-cell lymphoma, unspecified site; Y95 Nosocomial condition; K21.9 Gastro-esophageal reflux disease without esophagitis; I10 Essential (primary) hypertension; E03.9 Hypothyroidism, unspecified; Z66 Do not resuscitate; F32.9 Major depressive disorder, single episode, unspecified; G47.00 Insomnia, unspecified; D50.9 Iron deficiency anemia, unspecified; J40 Bronchitis, not specified as acute or chronic
CPT/HCPCS: 36415; 71045; 71275; 80048; 80053; 81001; 82728; 83540; 83605; 83735; 83880; 84466; 84484; 85025; 87040; 87070; 87077; 87181; 87205; 87631; 87640; 92610; 93005; 93306; 94640; 94761; 96360; 97116; 97161; 97166; 97530; 99284; 99285; A9270; J1650; J7512; J7626; Q9967; 0202U; 81003; 87086

== ENCOUNTER 2020-06-28 12:54 | Outpatient (CLI) | payer MEDICARE, OTHER | END 2020-06-28 12:55 | disposition critical access hospital (66) | LOC: EMS 12:54 | PROVIDERS: ATTEND Surgery | DX: R11.2 Nausea with vomiting, unspecified (principal); R53.1 Weakness | CPT/HCPCS: A0425; A0429 ==

== ENCOUNTER 2020-06-28 13:08 | Inpatient (IN) | payer MEDICARE, OTHER ==
[2020-06-28] MEDS ORDERED: ONDANSETRON 4 MG/2 ML VIAL IVP STA (13:20)
[2020-06-28] MEDS ORDERED: SODIUM CHLORIDE 0.9% 1,000 ML IV STA (13:20)
--- NOTE | 2020-06-28 13:23 | ED Physician Documentation ---
PD HPI NVD - Stated complaint Stated Complaint: N/V - Chief complaint Chief Complaint: Abd Pain - History obtained from History obtained from: Patient, EMS - History of Present Illness Timing - onset: How many days ago (several) Timing - duration: Days (several) Timing - details: Gradual onset, Still present Associated symptoms: No: Fever, Abdominal pain, Chest pain Contributing factors: Recent antibiotics, Other (recent chemo) Improved by: Vomiting Similar symptoms before: No diagnosis Recently seen: Admitted - Additonal information Additional information: 75-year-old female undergoing chemotherapy for lymphoma was found to be dyspneic and evaluated and found to have pneumonia and admitted into the hospital. This was about 9 days ago and she was in the hospital for 5 days and improved. She was discharged 4 days ago and she has now developed an increase in nausea and vomiting. Review of Systems Constitutional: denies: Fever Eyes: denies: Decreased vision Ears: denies: Ear pain Nose: reports: Congestion Throat: denies: Sore throat Cardiac: denies: Chest pain / pressure, Palpitations, Pedal edema, Calf pain Respiratory: reports: Dyspnea, Cough GI: reports: Nausea, Vomiting. denies: Abdominal Pain : denies: Dysuria, Frequency PD PAST MEDICAL HISTORY - Past Medical History Cardiovascular: Hypertension Respiratory: None Neuro: Migraines Endocrine/Autoimmune: HyPOthyroidism GI: Diverticulitis MEDICAL OFFICE SPECIALIST: None : None HEENT: None Psych: Depression Musculoskeletal: Osteoarthritis Derm: None - Past Surgical History Past Surgical History: No General: Cholecystectomy Ortho: Knee replacement /MEDICAL OFFICE SPECIALIST: Hysterectomy - Present Medications Home Medications: Ambulatory Orders Medication Instructions Recorded Confirmed Calcium/Magnesium/Zinc 1 tab PO DAILY 05/29/18 06/28/20 [Rltlrrk-Ixuglweqa-Qpkf Tablet] Estrogens, Conjugated [Premarin] 0.625 mg PO DAILY 05/29/18 06/28/20 Levothyroxine [Synthroid] 100 mcg PO DAILY 05/29/18 06/28/20 Multivitamin [Multiple Vitamins] 1 tab PO DAILY 05/29/18 06/28/20 carvediloL [Carvedilol] 12.5 mg PO BID 05/29/18 06/28/20 Cholecalciferol [Vitamin D3] 25 mcg PO DAILY 05/15/20 06/28/20 Omeprazole 20 mg PO DAILY 05/15/20 06/28/20 Lidocaine/Prilocain 2.5% Cream 5 applic TOP UD #1 tube 06/14/20 06/28/20 [Emla 2.5% Cream] Olanzapine [Zyprexa] 5 mg PO UD #20 tablet 06/14/20 06/28/20 Prochlorperazine Maleate 10 mg PO Q6HR PRN #30 tab 06/14/20 06/28/20 [Compazine] predniSONE [Prednisone] 100 mg PO UD #25 tab 06/14/20 06/28/20 Magnesium Oxide [Mag-Oxide] 400 mg PO BID 06/28/20 - Allergies Allergies/Adverse Reactions: Allergies Allergy/AdvReac Type Severity Reaction Status Date / Time morphine AdvReac Emesis Verified 06/28/20 13:16 shellfish derived AdvReac Emesis Verified 06/28/20 13:16 - Social History Does the pt smoke?: No Smoking Status: Never smoker Does the pt drink ETOH?: No Does the pt have substance abuse?: No - Immunizations Immunizations are current?: Yes PD ED PE NORMAL - Vitals Vital signs reviewed: Yes (tachy and hypertensive ) - General General: Alert and oriented X 3, Well developed/nourished, Other (pale appearing ) - HEENT HEENT: Atraumatic, PERRL, EOMI, Other (lips are parched ) - Neck Neck: Supple, no meningeal sign, No bony TTP - Cardiac Cardiac: RRR, No murmur - Respiratory Respiratory: No respiratory distress, Other (rhonchi on exam in left base) - Abdomen Abdomen: Soft, Non tender - Back Back: No CVA TTP, No spinal TTP - Derm Derm: Normal color, Warm and dry, No rash - Extremities Extremities: No deformity, No edema - Neuro Neuro: Alert and oriented X 3, sliding joint maker 2-12 intact, No motor deficit, No sensory deficit, Normal speech Eye Opening: Spontaneous Motor: Obeys Commands Verbal: Oriented GCS Score: 15 - Psych Psych: Normal mood, Normal affect Results - Vitals Vitals: Vital Signs - 24 hr 06/28/20 06/28/20 13:13 15:24 Temperature 36.0 C L Heart Rate 103 H 99 Respiratory 16 22 Rate Blood Pressure 120/84 H 129/74 O2 Saturation 96 94 Oxygen O2 Source Room air - Labs Labs: Laboratory Tests 06/28/20 06/28/20 13:30 13:30 WBC 14.7 H RBC 4.76 Hgb 11.8 L Hct 38.1 MCV 80.0 L MCH 24.8 L MCHC 31.0 L RDW 15.9 H Plt Count 948 H* MPV 9.3 Neut # (Auto) 11.3 H Lymph # (Auto) 1.6 Glades # (Auto) 1.3 H Eos # (Auto) 0.0 Baso # (Auto) 0.1 Absolute Nucleated RBC 0.00 Nucleated RBC % 0.0 Sodium 134 L Potassium 4.0 Chloride 82 L Carbon Dioxide 29 Anion Gap 23.0 H BUN 59 H Creatinine 4.3 H Estimated GFR (MDRD) 10 L Glucose 146 H Calcium 9.7 Total Bilirubin 0.5 AST 28 ALT 24 Alkaline Phosphatase 117 Total Protein 7.8 Albumin 3.6 Globulin 4.2 Albumin/Globulin Ratio 0.9 L Lipase 55 H - Rads (name of study) chest Radiology: Prelim report reviewed (Impression: Diminished bilateral interstitial prominence without complete resolution concerning for residual atypical pneumonia or pulmonary edema.), EMP read indepedently, See rad report Procedures - Bedside sono Bedside sono by EMP: With use of bedside ultrasound both kidneys are imaged there is sonographically nontender and there is no evidence of hydronephrosis. - IVC sono (time) 1320 Bedside IVC sono: IVC measures (cm) (1.00), Dehydration (est 1-2 liter deficit) PD MEDICAL DECISION MAKING - ED course Complexity details: reviewed old records, reviewed results, re-evaluated patient, considered differential, d/w patient ED course: 75-year-old female recently admitted in the hospital for pneumonia has been discharged she has been at home for 4 days she has now developed vomiting and has become dehydrated to the point of acute kidney injury moving her creatinine from 0.7 to 4.3. She has normal potassium she is hydrated with intravenous saline she will need continued hydration in the hospital. I did image the kidneys with the bedside ultrasound and there is no evidence of hydronephrosis bilaterally. Departure - Departure Disposition: [facility] DC/Xfer Clinical Impression: Dehydration, Acute kidney injury Discharge Date/Time: 06/28/20 17:40
[2020-06-28 13:45] LABS: BASOPHILS # (AUTO) 0.1 10^3/uL (0.0-0.1); BASOPHILS % (AUTO) 0.3 %; HGB - HEMOGLOBIN 11.8 g/dL (12.0-16.0); LYMPHOCYTES # (AUTO) 1.6 10^3/uL (1.5-3.5); LYMPHOCYTES % (AUTO) 10.8 %; MEAN CORPUSCULAR HEMOGLOBIN 24.8 pg (27.0-31.0); MEAN PLATELET VOLUME 9.3 fL (7.9-10.8); MONOCYTES # (AUTO) 1.3 10^3/uL (0.0-1.0); MONOCYTES % (AUTO) 8.9 %; NEUTROPHILS # (AUTO) 11.3 10^3/uL (1.5-6.6); NEUTROPHILS % (AUTO) 76.9 %; RED BLOOD COUNT 4.76 10^6/uL (4.20-5.40); RED CELL DISTRIBUTION WIDTH 15.9 % (12.0-15.0); WHITE BLOOD COUNT 14.7 x10^3/uL (4.8-10.8)
[2020-06-28 13:51] LABS: PLT - PLATELET COUNT 948 10^3/uL (130-450)
--- NOTE | 2020-06-28 13:53 | XRAY Report ---
PROCEDURE: Chest 1 View X-Ray INDICATIONS: chest pain TECHNIQUE: One view of the chest was acquired. COMPARISON: 06/22/2020 and 06/19/2020 FINDINGS: Surgical changes and devices: None. Lungs and pleura: No pleural effusions or pneumothorax. Interstitial prominence has diminished paco red to 06/22/2020 without complete resolution. Focal opacity in the right midlung has resolved. Mediastinum: Mediastinal contours appear normal. Heart size is normal. Bones and chest wall: No suspicious bony lesions. Overlying soft tissues appear unremarkable. IMPRESSION: Diminished bilateral interstitial prominence without complete resolution concerning for residual atyp ical pneumonia or pulmonary edema. Reviewed by: Paola Allen MD, PhD on 06/28/2020 12:52 PM [place] Approved by: Paola Allen MD, PhD on 06/28/2020 12:52 PM [place] Station ID: [id number]
[2020-06-28 13:59] LABS: ALBUMIN 3.6 g/dL (3.2-5.5); ALBUMIN/GLOBULIN RATIO 0.9 (1.0-2.2); BILIRUBIN,TOTAL 0.5 mg/dL (0.2-1.0); CALCIUM 9.7 mg/dL (8.5-10.3); CREATININE 4.3 mg/dL (0.4-1.0); TOTAL PROTEIN 7.8 g/dL (6.7-8.2)
[2020-06-28] MEDS ORDERED: ACETAMINOPHEN 325 MG TABLET PO PRN (16:48)
[2020-06-28] MEDS ORDERED: LACTATED RINGERS 1,000 ML IV ONE (16:51)
[2020-06-28] MEDS: SODIUM CHLORIDE FLUSH 0.9% 10 ML SYRINGE IVP SCH (19:15)
[2020-06-28 19:30] LABS: PHOSPHORUS 5.7 mg/dL (2.5-4.6); URIC ACID 12.1 mg/dL (2.6-7.2)
[2020-06-28 20:00] LABS: C. PNEUMONIAE- RESP PCR PANEL NOT DETECTED
--- NOTE | 2020-06-28 20:10 | HISTORY & PHYSICAL EXAMINATION ---
Chief Complaint - Chief Complaint Chief Complaint: nausea and vomitting History of Present Illness - Admitted From Admitted From:: Home - History Obtained From Records Reviewed: [facility] History obtained from: patient and daytime hospitalist at sign out Exam Limitations: none - History of Present Illness HPI Comment/Other: This is a 75-year-old female who presents to the emergency room after just being discharged June 24. She presents with nausea vomiting decreased p.o. intake with weakness. She is so nauseated she has not been able to eat very much and she now has a severe abrupt rise in creatinine. She initially presented as abdominal pain in the November [address] scan January showed her to have lymphadenopathy. She continued to have symptoms but the CT scan was not followed up on. When she presented to the surgery office for follow-up of abdominal pain, repeat CT scan April showed worsening lymphadenopathy and she underwent a biopsy thru exploratory lap. Biopsy 05/18/20 established lymphoma. Lymphoma was the extent that it surrounded her small bowel, and she presented as a small bowel obstruction June 04, 2020. Since she needed chemotherapy to resolve the small bowel obstruction, not surgery, she was transferred to [facility] from June 04 through June 12. Treatment was NG tube, IV fluids, bowel rest, octreotide and no surgery. She also underwent a PICC line and was placed on R-CHOP. R-CHOP gave her nausea, vomiting, shakes and weakness. First cycle was June 06. She received IV steroids and G-CSF as well. After being discharged from [facility] June 12, she followed up with oncology and her next cycle was due June 27. She continued to have weakness, poor appetite. She began coughing and had sputum production. She presented to the emergency room June 19. Initially we were worried that she may have aspirated with her initial NG tube placement for the small bowel obstruction in May. When she presented to the emergency room she was hypoxic to 88% on room air. Respiratory rate in the 30s. Chest x-ray showed diffuse interstitial prominence and perihilar airway thickening that was felt to be either infectious versus inflammatory. No focal consolidation. She was treated as a possible healthcare associated pneumonia/bronchitis with Zosyn and azithromycin. A repeat echocardiogram was done and compared to her previous echocardiogram and her ejection fraction has been maintained at 60 to 65%. She was able to go home without oxygen. She missed her cycle on June 27 but she did follow-up with them. She was discharged June 24. With today's presentation she maintains that she is just not been able to maintain p.o. intake. She has nausea, vomiting. Consistent mild generalized abdominal aching. There is no diarrhea. She denies fevers, chills, sweats. Her urine has not changed color and has not become dark. She denies coughing, wheezing, chest pain. No calf pain. She denies urgency, frequency, dysuria. On examination she was afebrile with a pulse of 103. Blood pressure 120/84. Respirations 16. 96% saturated. She was a well-nourished well-developed female who is alert and oriented but found to be "tachycardic and hypertensive" per the ER note. This does not jibe with vital signs recorded but that was what was documented. She was pale, very dehydrated and lips were parched. She was alert, oriented following commands. Abdomen was soft and nontender. White cell count was 14.7, hemoglobin 11.8, MCV 80. Platelets 948. Sodium 134, potassium 4. BUN 59 and creatinine 4.3. Her usual creatinine is 0.9. Random glucose 146. LFTs normal. Lipase 55. Bedside sonography showed her IVC to be severely shrunken and estimated 1 to 2 L deficit. Emergency room provider has asked us to admit the patient for dehydration. History - Past Medical History Cardiovascular: reports: Hypertension Respiratory: reports: Pneumonia Neuro: reports: Migraines Endocrine/Autoimmune: reports: HyPOthyroidism GI: reports: Diverticulitis PUBLISHING DIRECTOR: reports: Other ( w cyctocele repair w hyster) : reports: None HEENT: reports: None Psych: reports: Depression Musculoskeletal: reports: Osteoarthritis Derm: reports: None MRSA Hx?: No Other Past Medical History: Large cell B lymphoma - Past Surgical History General: reports: Cholecystectomy, Bowel surgery (exp lap for mesenteric bx 05/18/20), Other (port placement) Ortho: reports: Knee replacement /PUBLISHING DIRECTOR: reports: Hysterectomy HEENT: reports: Other (jaw surgery) - Family & Social History Family History Comment/Other: Mom no history of lymphoma in late 70s/early 80s of age. Dad no history of lymphoma in late 70s/early 80s of age. 3 sisters and 4 bros: No history of lymphoma, DM, HTN, thryoid, CAD but 1 brother has prostate ca. 4 Children: all healthy Living arrangement: At home Living Situation: With spouse/s.o. Social History Notes: Non-smoker. Rare alcohol drinker. 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 Lives in her own home with her . No history of recreational substance abuse. She recently moved to [facility] to be close to her son who works on the [employer]. From [facility] - Substance History Use: Uses substance without health or social issues: NONE Abuse: Recurrent use of substance despite neg consequences: NONE Dependence: Experiences withdrawal or developed tolerances: NONE - POLST Patient has POLST: No POLST Status: Full Code Meds/Allgy - Home Medications Home Medications: Ambulatory Orders Medication Instructions Recorded Confirmed Calcium/Magnesium/Zinc 1 tab PO DAILY 05/29/18 06/28/20 [Edgldmg-Wzakqvnbx-Nrvh Tablet] Estrogens, Conjugated [Premarin] 0.625 mg PO DAILY 05/29/18 06/28/20 Levothyroxine [Synthroid] 100 mcg PO DAILY 05/29/18 06/28/20 Multivitamin [Multiple Vitamins] 1 tab PO DAILY 05/29/18 06/28/20 carvediloL [Carvedilol] 12.5 mg PO BID 05/29/18 06/28/20 Cholecalciferol [Vitamin D3] 25 mcg PO DAILY 05/15/20 06/28/20 Omeprazole 20 mg PO DAILY 05/15/20 06/28/20 Lidocaine/Prilocain 2.5% Cream 5 applic TOP UD #1 tube 06/14/20 06/28/20 [Emla 2.5% Cream] Olanzapine [Zyprexa] 5 mg PO UD #20 tablet 06/14/20 06/28/20 Prochlorperazine Maleate 10 mg PO Q6HR PRN #30 tab 06/14/20 06/28/20 [Compazine] predniSONE [Prednisone] 100 mg PO UD #25 tab 06/14/20 06/28/20 Magnesium Oxide [Mag-Oxide] 400 mg PO BID 06/28/20 - Allergies Allergies/Adverse Reactions: Allergies Allergy/AdvReac Type Severity Reaction Status Date / Time morphine AdvReac Emesis Verified 06/28/20 13:16 shellfish derived AdvReac Emesis Verified 06/28/20 13:16 Review of Systems - Constitutional Constitutional: reports: Fatigue, Malaise, Weakness, Poor appetite, Weight loss - Eyes Eyes: reports: Blurred vision, Corrective lenses. denies: Irritation, Amaurosis - Ears, Nose & Throat Ears, Nose & Throat: reports: Sore throat, Hoarseness. denies: Ear pain, Hearing loss, Hearing aids, Tinnitus, Vertigo, Nasal pain, Nasal discharge - Cardiovascular Cariovascular: reports: Lightheadedness, Decr. exercise tolerance. denies: Irregular heart rate, Palpitations, Chest pain, Edema, Syncope, Exertional dyspnea - Respiratory Respiratory: reports: Cough, SOB with exertion. denies: Sputum production, Wheezing, Snoring, Hemoptysis, Orthopnea, SOB at rest - Gastrointestinal Gastrointestinal: reports: Change in bowel habits (less and softer stools), Nausea, Vomiting, Bloating, Poor appetite. denies: Abdominal pain (gone once chemo started), Abdominal distention, Constipation, Diarrhea, Rectal bleeding, Black stools, Bloody stools, Bile emesis, Eric blood emesis - Genitourinary Genitourinary: denies: Dysuria, Frequency, Urgency, Hematuria, Flank pain - Musculoskeletal Musculoskeletal: reports: Muscle weakness, Joint pain (comes and goes as usual). denies: Back pain, Muscle aches, Stiffness - Integumentary Integumentary: reports: Dryness. denies: Rash, Pruritis, Lesions - Neurological Neurological: reports: General weakness, Dizziness, Memory problems (chemo brain). denies: Focal weakness, Headache, Numbness, Pre-existing deficit, Abnormal gait, Seizures - Psychiatric Psychiatric: denies: Depression, Anxiety, Suicidal - Endocrine Endocrine: reports: Intolerance to cold. denies: Polyuria, Polydypsia, Polyphagia - Hematologic/Lymphatic Hematologic/Lymphatic: reports: Anemia, Bruising. denies: Petechiae, Blood clots, Lymphadenopathy, Bleeding tendencies Prior Level of Functionality: Prior to diagnosis, completely functional with ability to complete all activities of daily living, driving, cooking, paying bills, etc. Did not use any durable medical equipment. Exam - Vital Signs Reviewed Vital Signs: Yes Vital Signs: Vital Signs x48h Temp Pulse Pulse Resp BP BP Pulse Ox 06/28/20 18:00 36.6 C 100 18 131/57 H 92 06/28/20 17:23 113 H 31 H 116/67 95 06/28/20 15:24 99 22 129/74 94 06/28/20 13:13 36.0 C L 103 H 16 120/84 H 96 - Physical Exam General Appearance: positive: No acute distress, Lethargic (Very fatigued appearing, pale, wakes to my voice. Appropriate and alert when she is awake.) Eyes Bilateral: positive: PERRL, EOMI ENT: positive: Dry mucous membranes (Severely dry. Cracked lips.) Neck: positive: No JVD. negative: Stiff neck Respiratory: positive: No respiratory distress. negative: Wheezes, Rales, Rhonchi Cardiovascular: positive: Regular rate & rhythm, Systolic murmur. negative: Gallop/S4, Friction rub Peripheral Pulses: positive: 1+ Abdomen: positive: Non-tender, No organomegaly, Nml bowel sounds, No distention. negative: Guarding, Rebound Skin: positive: Warm, Dry, Pallor, Other (Tenting of forearm and hand skin) Extremities: positive: Non-tender, Full ROM, No pedal edema Neurologic/Psychiatric: positive: Oriented x3, CN's nml (2-12), Motor nml (But diffuse generalized weakness. Difficult for her to just even sit up in bed for me to examine her but able to do so with standby assist), Depressed mood/affect ("I cannot believe this is happening. This is worse than I thought it would be"). negative: Facial droop, Slurred/abnml speech Conclusion/Plan - Problem List (1) Severe dehydration Conclusion/Plan: Due to inability to keep food down. Which is in turn due to chemotherapy side effects (R11.12) Plan: Inpatient admission since anticipate more than 2 midnights to get her back to baseline status Continue IV fluids aggressively since her ejection fraction is maintained In order to avoid future episodes of dehydration, I suggested that she talk to her oncologist about setting up regular IV fluids for hydration. Day 0 is chemo chemo, day 7 and 14 give 1 to 2 L of IVF, day 21 repeat chemo. (2) Acute kidney injury Conclusion/Plan: Most likely due to her severe dehydration with prerenal azotemia. Nevertheless, we have ordered a retroperitoneal ultrasound to make sure she does not have any obstruction. We will also check LDH, CPK to make sure she does not have tumor lysis. [place] Pineda score for her does have her elevated uric acid at 12.1, elevated phosphorus at 5.7 but normal calcium, normal potassium Plan: Start allopurinol 1 amp of sodium bicarb to IV fluids Was considered. But according to up-to-date this approach is fallen out of favor. At this time I am not giving Lasix Check daily BUN and creatinine with LDH,Uric acid Avoid nephrotoxic agents Rasburicase is not on formulary Retroperitoneal ultrasound as stated (3) Anemia due to chemotherapy Conclusion/Plan: stable and not requiring transfusion (4) Postmenopausal disorder Conclusion/Plan: I have noted on her med list that she is on postmenopausal supplementation of estrogen. At this time because of decreased mobility status, increased risk hypercoagulable state in the face of malignancy, I would stop her estrogen replacement therapy. I have let her know that. She should discuss this with her primary care provider. Consider calcium and vitamin D on a regular basis with osteoporosis scan in the next few months. (5) Hypertension Conclusion/Plan: She is on low-dose carvedilol. I will resume that drug mainly to control her heart rate. She is tachycardic in the face of low volume and it is expected. But I do not want to contribute to rebound tachycardia. Qualifiers: Hypertension type: essential hypertension Qualified Code(s): I10 - Essential (primary) hypertension (6) B-cell lymphoma Conclusion/Plan: Diagnosis May 18, 2020. First treatment for R-CHOP was May 2020. As stated above, would recommend that she get IV hydration on day 7 and day 14 in between her cycles of chemo. Expected side effects are definitely present in this unfortunate woman. She will follow up with Denis Sosa when she gets out of the hospital. Qualifiers: B-cell lymphoma type: diffuse large B-cell Lymphoma site: intra-abdominal nodes Qualified Code(s): C83.33 - Diffuse large B-cell lymphoma, intra- abdominal lymph nodes - Lab Results Lab results reviewed: Yes Fish Bones: 06/28/20 13:30 06/28/20 13:30 - Diagnostic Imaging Results Diagnostic Imaging Results: positive: Final report reviewed Diagnostic Imaging Results Comments: Diminished bilateral interstitial opacities without complete resolution concerning for residual atypical pneumonia or pulmonary edema when compared to June 22 and June 19 chest x-rays. Retroperitoneal ultrasound is pending. Core Measures - Anticipated LOS I expect patient to be DC'd or transferred within 96 hours.: Yes - DVT/VTE - Prophylaxis VTE/DVT Device ordered at admit?: Yes
[2020-06-28] MEDS: HEPARIN 5,000 UNIT/ML VIAL SUBQ SCH (20:45)
[2020-06-28] MEDS: LACTATED RINGERS 1,000 ML IV SCH (20:48)
[2020-06-28] MEDS: carvediloL 12.5 MG TABLET PO SCH (21:44)
[2020-06-28] MEDS: allopurinoL 100 MG TABLET PO SCH (23:44)
[2020-06-29] MEDS: SODIUM CHLORIDE FLUSH 0.9% 10 ML SYRINGE IVP SCH ×3 (00:33→16:28)
[2020-06-29] MEDS: LACTATED RINGERS 1,000 ML IV SCH ×3 (03:05→16:27)
[2020-06-29 05:39] LABS: BASOPHILS % (AUTO) 0.4 %; HGB - HEMOGLOBIN 9.3 g/dL (12.0-16.0); LYMPHOCYTES # (AUTO) 1.2 10^3/uL (1.5-3.5); LYMPHOCYTES % (AUTO) 11.7 %; MEAN CORPUSCULAR HEMOGLOBIN 24.3 pg (27.0-31.0); MEAN CORPUSCULAR HGB CONC 29.6 g/dL (32.0-36.0); MEAN CORPUSCULAR VOLUME 82.2 fL (81.0-99.0); MEAN PLATELET VOLUME 9.3 fL (7.9-10.8); MONOCYTES % (AUTO) 9.3 %; NEUTROPHILS % (AUTO) 76.4 %; PLT - PLATELET COUNT 559 10^3/uL (130-450); RED BLOOD COUNT 3.82 10^6/uL (4.20-5.40); RED CELL DISTRIBUTION WIDTH 15.7 % (12.0-15.0); WHITE BLOOD COUNT 10.5 x10^3/uL (4.8-10.8)
[2020-06-29 05:55] LABS: CALCIUM 8.5 mg/dL (8.5-10.3); CREATININE 2.4 mg/dL (0.4-1.0); MAGNESIUM 2.4 mg/dL (1.7-2.8); PHOSPHORUS 3.9 mg/dL (2.5-4.6)
[2020-06-29] MEDS: carvediloL 12.5 MG TABLET PO SCH ×2 (08:05→16:26)
[2020-06-29] MEDS: allopurinoL 100 MG TABLET PO SCH (09:53)
[2020-06-29] MEDS: LEVOTHYROXINE 100 MCG TABLET PO SCH (09:54)
[2020-06-29] MEDS: HEPARIN 5,000 UNIT/ML VIAL SUBQ SCH ×2 (09:57→20:55)
[2020-06-29] MEDS: POTASSIUM CHLOR 10 MEQ/100 ML 10 MEQ/100 ML BAG IV SCH ×4 (10:05→14:26)
[2020-06-29] MEDS: SODIUM CHLORIDE FLUSH 0.9% 10 ML SYRINGE IVP PRN (12:17)
[2020-06-29] MEDS: ONDANSETRON 4 MG/2 ML VIAL IVP PRN (12:17)
--- NOTE | 2020-06-29 14:27 | PROVIDER PROGRESS NOTE ---
Assessment/Plan - Problem List (1) Severe dehydration Assessment/Plan: Patient still present dry mouth, Patient creatinine is 2.4, Significant improved. Continue intravenous IV fluids for hydration, Continue laboratory monitoring Due to inability to keep food down. Which is in turn due to chemotherapy side effects, In order to avoid future episodes of dehydration,agree the suggestion that she talk to her oncologist about setting up regular IV fluids for hydration. Day 0 is chemo chemo, day 7 and 14 give 1 to 2 L of IVF, day 21 repeat chemo. (2) Acute kidney injury Significantly improved, creatinine is at 2.4 from 4.3 at admission. Uric acid reduce, Magnesium and phosphates And calcium all are in the normal range, LDH and alkaline phosphatase within normal range. Likely acute kidney injury from severe dehydration, Uric acid elevated likely from chemo side effect And severe dehydration. continue allopurinol, Continue intravenous IV fluids, Concern of fluid overloaded on lung, reduced IVF to 125cc/hour, order CXR to monitor as well. Patient has no cough, no fever but oxygen saturation is slightly reduced. Check daily BUN and creatinine with LDH,Uric acid Avoid nephrotoxic agents Retroperitoneal ultrasound is pending (3) Anemia due to chemotherapy Conclusion/Plan: stable and not requiring transfusion (4) Postmenopausal disorder Conclusion/Plan: At this time because of decreased mobility status, increased risk hypercoagulable state in the face of malignancy, agree we would stop her estrogen replacement therapy. advise pt should discuss this with her primary care provider. Consider calcium and vitamin D on a regular basis with osteoporosis scan in the next few months. (5) Hypertension Conclusion/Plan: stable, continue low-dose carvedilol. (6) B-cell lymphoma Conclusion/Plan: pt had Diagnosis May 18, 2020. First treatment for R-CHOP was May 2020. agree the recommend that she get IV hydration on day 7 and day 14 in between her cycles of chemo. Expected side effects are definitely present in this unfortunate woman. She will follow up with Denis Sosa when she gets out of the hospital. (7)Generalized weakness pt Present Generalized weakness, Multifactorial combination, Patient just finished R-CHOP chemotherapy, Patient has B cell non-Hodgkin lymphoma, Severe dehydration, Poor appetite because of the chemotherapy Side effect. We will con tinue treat as above, consult with physical and occupational therapist (8)Hypothyroidism Patient has a history of hypothyroidism, will resume home Synthroid, check TSH - Current Meds Current Meds: Current Medications Generic Name Dose Route Start Last Admin Trade Name Benitezq PRN Reason Stop Dose Admin Allopurinol 100 mg 06/28/20 09:00 06/29/20 09:53 Allopurinol 100 Mg Tablet PO 100 mg DAILY [facility] Administration Carvedilol 12.5 mg 06/28/20 22:00 06/29/20 09:53 Carvedilol 12.5 Mg Tablet PO 12.5 mg BIDWM [facility] Administration Heparin Sodium (Porcine) 5,000 unit 06/28/20 21:00 06/29/20 09:57 Heparin 5,000 Unit/Ml Vial SUBQ 5,000 unit BID [facility] Administration Lactated Ringer's 1,000 mls @ 150 mls/hr 06/28/20 17:00 06/29/20 11:16 Lr IV 125 mls/hr .Q6H40M [facility] Infusion Levothyroxine Sodium 100 mcg 06/29/20 09:00 06/29/20 09:54 Levothyroxine 100 Mcg Tablet PO 100 mcg DAILY [facility] Administration Ondansetron HCl 4 mg 06/28/20 16:48 06/29/20 12:17 Ondansetron 4 Mg/2 Ml Vial IVP 4 mg Q6HR PRN Administration Nausea / Vomiting Sodium Chloride 10 ml 06/28/20 16:48 06/29/20 12:17 Sodium Chloride Flush 0.9% 10 Ml Syringe IVP 10 ml PRN PRN Administration NEEDED PER PROVIDER ORDERS Sodium Chloride 10 ml 06/28/20 17:00 06/29/20 09:54 Sodium Chloride Flush 0.9% 10 Ml Syringe IVP Not Given 0100,0900,1700 [facility] - Lab Result Fish Bone Diagrams: 06/29/20 05:22 06/29/20 05:22 - Additional Planning My Orders: My Active Orders 06/29/20 Evaluate and Treat OT [OT] Routine Evaluate and Treat PT [PT] Routine 06/29/20 09:00 Levothyroxine [Synthroid] 100 mcg PO DAILY 06/30/20 05:00 TSH [THYROID STIMULATING HORMONE] [IAI] DAILYLAB URIC ACID [CHEM] DAILYLAB 07/01/20 05:00 URIC ACID [CHEM] DAILYLAB 07/02/20 05:00 URIC ACID [CHEM] DAILYLAB 07/03/20 05:00 URIC ACID [CHEM] DAILYLAB Subjective - Subjective Patient Reports: Other (weakness) Objective Vital Signs: Vital Signs - 24 hr 06/28/20 06/28/20 06/28/20 15:24 17:23 18:00 Temperature 36.6 C Heart Rate 99 113 H Heart Rate [ 100 Brachial] Respiratory 22 31 H 18 Rate Blood Pressure 129/74 116/67 Blood Pressure 131/57 H [Left Brachial artery] Blood Pressure [Right Brachial artery] O2 Saturation 94 95 92 06/29/20 06/29/20 06/29/20 00:20 04:28 08:04 Temperature 36.4 C L 36.7 C 36.3 C L Heart Rate Heart Rate [ 92 96 103 H Brachial] Respiratory 20 14 16 Rate Blood Pressure Blood Pressure [Left Brachial artery] Blood Pressure 119/65 105/48 L 102/60 [Right Brachial artery] O2 Saturation 95 93 92 06/29/20 11:16 Temperature 36.6 C Heart Rate Heart Rate [ 90 Brachial] Respiratory 16 Rate Blood Pressure Blood Pressure [Left Brachial artery] Blood Pressure 115/54 L [Right Brachial artery] O2 Saturation 91 L Oxygen O2 Source Room air I&O (Last 24 Hrs): Intake and Output Totals x24h 06/27/20 06/28/20 06/29/20 23:59 23:59 23:59 Intake Total 2150 2578.333 Output Total 1 Balance 2150 2577.333 General: Alert, Oriented x3, Cooperative, No acute distress HEENT: Atraumatic Neck: Supple Lymphatic: no adenopathy Neuro: Alert, Non Focal, Oriented Times 3 Cardiovascular: Regular rate, Normal S1, Normal S2 Respiratory: Chest non-tender, No respiratory distress Abdomen: Normal bowel sounds, Soft, No tenderness Extremities: Normal pulses Skin: No breakdown - Results Results: Laboratory Results WBC 10.5 x10^3/uL (4.8-10.8) 06/29/20 05:22 RBC 3.82 10^6/uL (4.20-5.40) L 06/29/20 05:22 Hgb 9.3 g/dL (12.0-16.0) L 06/29/20 05:22 Hct 31.4 % (37.0-47.0) L 06/29/20 05:22 MCV 82.2 fL (81.0-99.0) 06/29/20 05:22 MCH 24.3 pg (27.0-31.0) L 06/29/20 05:22 MCHC 29.6 g/dL (32.0-36.0) L 06/29/20 05:22 RDW 15.7 % (12.0-15.0) H 06/29/20 05:22 Plt Count 559 10^3/uL (130-450) H 06/29/20 05:22 MPV 9.3 fL (7.9-10.8) 06/29/20 05:22 Neut # (Auto) 8.0 10^3/uL (1.5-6.6) H 06/29/20 05:22 Lymph # (Auto) 1.2 10^3/uL (1.5-3.5) L 06/29/20 05:22 Tyler # (Auto) 1.0 10^3/uL (0.0-1.0) 06/29/20 05:22 Eos # (Auto) 0.0 10^3/uL (0.0-0.7) 06/29/20 05:22 Baso # (Auto) 0.0 10^3/uL (0.0-0.1) 06/29/20 05:22 Absolute Nucleated RBC 0.00 x10^3/uL 06/29/20 05:22 Nucleated RBC % 0.0 /100WBC 06/29/20 05:22 Sodium 133 mmol/L (135-145) L 06/29/20 05:22 Potassium 3.1 mmol/L (3.5-5.0) L 06/29/20 05:22 Chloride 89 mmol/L (101-111) L 06/29/20 05:22 Carbon Dioxide 31 mmol/L (21-32) 06/29/20 05:22 Anion Gap 13.0 (6-13) 06/29/20 05:22 BUN 48 mg/dL (6-20) H 06/29/20 05:22 Creatinine 2.4 mg/dL (0.4-1.0) H 06/29/20 05:22 Estimated GFR (MDRD) 20 (>89) L 06/29/20 05:22 Glucose 107 mg/dL (70-100) H 06/29/20 05:22 Uric Acid 9.5 mg/dL (2.6-7.2) H 06/29/20 05:22 Calcium 8.5 mg/dL (8.5-10.3) 06/29/20 05:22 Phosphorus 3.9 mg/dL (2.5-4.6) 06/29/20 05:22 Magnesium 2.4 mg/dL (1.7-2.8) 06/29/20 05:22 Total Bilirubin 0.5 mg/dL (0.2-1.0) 06/28/20 13:30 AST 28 IU/L (10-42) 06/28/20 13:30 ALT 24 IU/L (10-60) 06/28/20 13:30 Alkaline Phosphatase 117 IU/L (42-121) 06/28/20 13:30 Lactate Dehydrogenase 130 IU/L (91-225) 06/29/20 05:22 Total Protein 7.8 g/dL (6.7-8.2) 06/28/20 13:30 Albumin 3.6 g/dL (3.2-5.5) 06/28/20 13:30 Globulin 4.2 g/dL (2.1-4.2) 06/28/20 13:30 Albumin/Globulin Ratio 0.9 (1.0-2.2) L 06/28/20 13:30 Lipase 55 U/L (22-51) H 06/28/20 13:30 Nasal Adenovirus (PCR) NOT DETECTED 06/28/20 17:25 Nasal B. parapertussis DNA (PCR) NOT DETECTED 06/28/20 17:25 Nasal Coronavir 229E PCR NOT DETECTED 06/28/20 17:25 Nasal Coronavir HKU1 PCR NOT DETECTED 06/28/20 17:25 Nasal Coronavir NL63 PCR NOT DETECTED 06/28/20 17:25 Nasal Coronavir OC43 PCR NOT DETECTED 06/28/20 17:25 Nasal Enterovir/Rhinovir PCR NOT DETECTED 06/28/20 17:25 Nasal Influenza B PCR NOT DETECTED 06/28/20 17:25 Nasal Influenza A PCR NOT DETECTED 06/28/20 17:25 Nasal Parainfluen 1 PCR NOT DETECTED 06/28/20 17:25 Nasal Parainfluen 2 PCR NOT DETECTED 06/28/20 17:25 Nasal Parainfluen 3 PCR NOT DETECTED 06/28/20 17:25 Nasal Parainfluen 4 PCR NOT DETECTED 06/28/20 17:25 Nasal RSV (PCR) NOT DETECTED 06/28/20 17:25 Nasal B.pertussis DNA PCR NOT DETECTED 06/28/20 17:25 Nasal C.pneumoniae (PCR) NOT DETECTED 06/28/20 17:25 Vasquez Human Metapneumo PCR NOT DETECTED 06/28/20 17:25 Nasal M.pneumoniae (PCR) NOT DETECTED 06/28/20 17:25 Nasal SARS-CoV-2 (PCR) NOT DETECTED 06/28/20 17:25 - Procedures Procedures: Procedures EXCISION OF MESENTERIC LYMPHATIC, OPEN APPROACH, DIAGNOSTIC (05/18/20) ABX Reporting Has patient been on IV antibiotics over the past 48 hours?: No Current Medications - Current Medications Current Medications: Active Medications Acetaminophen (Acetaminophen 325 Mg Tablet) 650 mg PO Q4HR PRN PRN Reason: Pain 1 to 4 Allopurinol (Allopurinol 100 Mg Tablet) 100 mg PO DAILY [facility] Last Admin: 06/29/20 09:53 Dose: 100 mg Documented by: Carvedilol (Carvedilol 12.5 Mg Tablet) 12.5 mg PO BIDWM [facility] Last Admin: 06/29/20 09:53 Dose: 12.5 mg Documented by: Heparin Sodium (Porcine) (Heparin 5,000 Unit/Ml Vial) 5,000 unit SUBQ BID [facility] Last Admin: 06/29/20 09:57 Dose: 5,000 unit Documented by: Lactated Ringer's (Lr) 1,000 mls @ 125 mls/hr IV .Q8H [facility] Levothyroxine Sodium (Levothyroxine 100 Mcg Tablet) 100 mcg PO DAILY [facility] Last Admin: 06/29/20 09:54 Dose: 100 mcg Documented by: Ondansetron HCl (Ondansetron 4 Mg/2 Ml Vial) 4 mg IVP Q6HR PRN PRN Reason: Nausea / Vomiting Last Admin: 06/29/20 12:17 Dose: 4 mg Documented by: Sodium Chloride (Sodium Chloride Flush 0.9% 10 Ml Syringe) 10 ml IVP PRN PRN PRN Reason: NEEDED PER PROVIDER ORDERS Last Admin: 06/29/20 12:17 Dose: 10 ml Documented by: Sodium Chloride (Sodium Chloride Flush 0.9% 10 Ml Syringe) 10 ml IVP 0100,0900,1700 [facility] Last Admin: 06/29/20 09:54 Dose: Not Given Documented by: Calcium/Magnesium/Zinc [Hswcdfy-Egcarbszb-Kmzr Tablet] 1 tab PO DAILY 05/29/18 Estrogens, Conjugated [Premarin] 0.625 mg PO DAILY 05/29/18 Levothyroxine [Synthroid] 100 mcg PO DAILY 05/29/18 Multivitamin [Multiple Vitamins] 1 tab PO DAILY 05/29/18 carvediloL [Carvedilol] 12.5 mg PO BID 05/29/18 Cholecalciferol [Vitamin D3] 25 mcg PO DAILY 05/15/20 Omeprazole 20 mg PO DAILY 05/15/20 Magnesium Oxide [Mag-Oxide] 400 mg PO BID 06/28/20
--- NOTE | 2020-06-29 15:31 | Ultrasound Report ---
PROCEDURE: Retroperitoneal INDICATIONS: Acute kidney injury. TECHNIQUE: Real-time scanning was performed of the retroperitoneal organs, with image documentation. COMPARISON: CT abdomen pelvis 06/04/2020 FINDINGS: Kidneys: Kidneys are normal in size. Right kidney measures 10.0 cm long; left kidney measures 10.5 cm long. Right renal cortical thickness is 1.8 cm; left renal cortical thickness is 1.6 cm. No atul d masses, hydronephrosis, or nephrolithiasis. Bilateral renal cysts are present, unchanged. Bladder: Prevoid volume 390 cc. The left ureteral jet is identified. Post void residual was not obtai neymar as patient was unable to void. Aorta: Visualized aorta is normal in caliber at 3 cm or less. Iliac arteries: Proximal common iliac arteries are normal in caliber at 2.5 cm or less. IVC: Intrahepatic inferior vena cava is patent. Miscellaneous: No free abdominal fluid. There is an echogenic focus posterior to the bladder. IMPRESSION: 1. Bilateral renal cysts. No obstruction. 2. Echogenic focus posterior to the bladder. This could represent a loop of bowel. It is noted no abn ormalities identified on CT abdomen pelvis of 06/04/2020. As clinically indicated, short interval terri ging ultrasound follow-up may be obtained to document resolution or CT for further evaluation. Reviewed by: Venita Workman MD on 06/29/2020 3:30 PM PST Approved by: Venita Workman MD on 06/29/2020 3:30 PM PST Station ID: [id number]
--- NOTE | 2020-06-29 15:37 | XRAY Report ---
PROCEDURE: Chest 1 View X-Ray INDICATIONS: SOB TECHNIQUE: One view of the chest was acquired. COMPARISON: CXR 06/28/2020. CT pulmonary angiogram 06/19/2020. FINDINGS: Surgical changes and devices: None. Lungs and pleura: No pleural effusions or pneumothorax. Minimal airspace opacity most pronounced in the right infrahilar and left lung base, not significantly changed. Mediastinum: Mediastinal contours appear normal. Heart size is normal. Bones and chest wall: No suspicious bony lesions. Overlying soft tissues appear unremarkable. IMPRESSION: Minimal residual patchy airspace opacity similar the prior exam. Reviewed by: Ronald Main MD on 06/29/2020 3:36 PM [facility] Approved by: Ronald Main MD on 06/29/2020 3:36 PM [facility] Station ID: [id number]
[2020-06-29 17:56] LABS: BILIRUBIN,URINE NEGATIVE (NEGATIVE); GLUCOSE, URINE (UA) NEGATIVE (NEGATIVE); KETONES,URINE (UA) TRACE mg/dL (NEGATIVE); LEUKOCYTE ESTERASE, URINE NEGATIVE (NEGATIVE); NITRITE,URINE NEGATIVE (NEGATIVE); OCCULT BLOOD,URINE NEGATIVE (NEGATIVE); PH,URINE 6.5 PH (5.0-7.5); PROTEIN,URINE NEGATIVE (NEGATIVE); UROBILINOGEN,URINE 0.2 (NORMAL) E.U./dL (NORMAL)
[2020-06-29 17:58] LABS: CLARITY,URINE HAZY (CLEAR)
[2020-06-29 18:02] LABS: BACTERIA,URINE Rare /HPF (None Seen); RBC,URINE 0-5 /HPF (0-5); SQUAMOUS EPITHELIAL CELL,UR MANY Squamous (<= Few); YEAST,URINE PRESENT
[2020-06-30] MEDS: SODIUM CHLORIDE FLUSH 0.9% 10 ML SYRINGE IVP SCH ×3 (01:41→17:16)
[2020-06-30] MEDS: LACTATED RINGERS 1,000 ML IV SCH ×3 (01:46→20:35)
[2020-06-30 05:50] LABS: CALCIUM 8.1 mg/dL (8.5-10.3); CREATININE 1.1 mg/dL (0.4-1.0); PHOSPHORUS 1.9 mg/dL (2.5-4.6); URIC ACID 4.1 mg/dL (2.6-7.2)
[2020-06-30 05:55] LABS: BASOPHILS % (AUTO) 0.5 %; EOSINOPHILS % (AUTO) 0.1 %; HGB - HEMOGLOBIN 8.9 g/dL (12.0-16.0); LYMPHOCYTES % (AUTO) 11.7 %; MEAN CORPUSCULAR HEMOGLOBIN 25.1 pg (27.0-31.0); MEAN CORPUSCULAR HGB CONC 29.1 g/dL (32.0-36.0); MEAN CORPUSCULAR VOLUME 86.4 fL (81.0-99.0); MEAN PLATELET VOLUME 9.3 fL (7.9-10.8); MONOCYTES # (AUTO) 0.7 10^3/uL (0.0-1.0); MONOCYTES % (AUTO) 8.5 %; NEUTROPHILS # (AUTO) 6.4 10^3/uL (1.5-6.6); NEUTROPHILS % (AUTO) 77.4 %; PLT - PLATELET COUNT 461 10^3/uL (130-450); RED BLOOD COUNT 3.54 10^6/uL (4.20-5.40); RED CELL DISTRIBUTION WIDTH 15.6 % (12.0-15.0); WHITE BLOOD COUNT 8.3 x10^3/uL (4.8-10.8)
[2020-06-30] MEDS ORDERED: POTASSIUM CHLORIDE 20 MEQ TABLET PO ONE (08:14)
[2020-06-30 08:41] LABS: ABSOLUTE RETICS # AUTO 0.11 10^6/uL (0.020-0.110); RED BLOOD COUNT 3.51 10^6/uL (4.20-5.40)
[2020-06-30] MEDS: HEPARIN 5,000 UNIT/ML VIAL SUBQ SCH ×2 (08:43→21:38)
[2020-06-30] MEDS: LEVOTHYROXINE 100 MCG TABLET PO SCH (08:55)
[2020-06-30] MEDS: carvediloL 12.5 MG TABLET PO SCH ×2 (08:55→17:15)
[2020-06-30] MEDS: allopurinoL 100 MG TABLET PO SCH (08:55)
[2020-06-30 09:20] LABS: % IRON SATURATION 10 % (20-50); IRON 31 ug/dL (28-170); TOTAL IRON BINDING CAPACITY 300 ug/dL (250-450); TRANSFERRIN 214 mg/dL (192-382)
[2020-06-30 09:38] LABS: FERRITIN 59.2 ng/mL (11.0-306.8)
--- NOTE | 2020-06-30 14:17 | PROVIDER PROGRESS NOTE ---
Assessment/Plan - Problem List (1) Nausea & vomiting Assessment/Plan: Patient Was reported to have mild nausea and vomiting. Patient has no abdominal pain, abdominal is soft, patient had good bowel sounds, I saw patient tolerated eating clear diet. At this point I do not believe patient has bowel obstruction, although patient had history of bowel obstruction. Continue antiemesis as needed, continue intravenous IV fluids, closely monitor pt. (2) Severe dehydration Assessment/Plan: 06/30 improved. creatinine is 1.1, her baseline creatinine 0.7, reduced IVF to 100cc/h, continue lab monitor Patient still present dry mouth, Patient creatinine is 2.4, Significant improved. Continue intravenous IV fluids for hydration, Continue laboratory monitoring Due to inability to keep food down. Which is in turn due to chemotherapy side effects, In order to avoid future episodes of dehydration,agree the suggestion that she talk to her oncologist about setting up regular IV fluids for hydration. Day 0 is chemo chemo, day 7 and 14 give 1 to 2 L of IVF, day 21 repeat chemo. (3) Acute kidney injury 06/30 significantly improved. creatinine is 1.1, her baseline creatinine 0.7, reduced IVF to 100cc/h, continue lab monitor Significantly improved, creatinine is at 2.4 from 4.3 at admission. Uric acid reduce, Magnesium and phosphates And calcium all are in the normal range, LDH and alkaline phosphatase within normal range. Likely acute kidney injury from severe dehydration, Uric acid elevated likely from chemo side effect And severe dehydration. continue allopurinol, Continue intravenous IV fluids, Concern of fluid overloaded on lung, reduced IVF to 125cc/hour, order CXR to monitor as well. Patient has no cough, no fever but oxygen saturation is slightly reduced. Check daily BUN and creatinine with LDH,Uric acid Avoid nephrotoxic agents Retroperitoneal ultrasound is pending (4) Anemia due to chemotherapy Conclusion/Plan: 06/30 Hemoglobin is 8.9 today, Patient finished chemotherapy with R-CHOP which could contribute to anemia. Continue cath laboratory technician stable and not requiring transfusion (5) Postmenopausal disorder Conclusion/Plan: At this time because of decreased mobility status, increased risk hypercoagulable state in the face of malignancy, agree we would stop her estrogen replacement therapy. advise pt should discuss this with her primary care provider. Consider calcium and vitamin D on a regular basis with osteoporosis scan in the next few months. (6) Hypertension Conclusion/Plan: stable, continue low-dose carvedilol. (7) B-cell lymphoma Conclusion/Plan: pt had Diagnosis May 18, 2020. First treatment for R-CHOP was May 2020. agree the recommend that she get IV hydration on day 7 and day 14 in between her cycles of chemo. Expected side effects are definitely present in this unfortunate woman. She will follow up with Denis Sosa when she gets out of the hospital. (8)Generalized weakness 06/30 Patient still present Profound weakness, Continue physical therapist and occupational therapist, add sleep Restoril pt Present Generalized weakness, Multifactorial combination, Patient just finished R-CHOP chemotherapy, Patient has B cell non-Hodgkin lymphoma, Severe dehydration, Poor appetite because of the chemotherapy Side effect. We will continue treat as above, consult with physical and occupational therapist (9)Hypothyroidism Patient has a history of hypothyroidism, will resume home Synthroid, check TSH - Current Meds Current Meds: Current Medications Generic Name Dose Route Start Last Admin Trade Name Freq PRN Reason Stop Dose Admin Allopurinol 100 mg 06/28/20 09:00 06/30/20 08:55 Allopurinol 100 Mg Tablet PO 100 mg DAILY [facility] Administration Carvedilol 12.5 mg 06/28/20 22:00 06/30/20 08:55 Carvedilol 12.5 Mg Tablet PO 12.5 mg BIDWM [facility] Administration Heparin Sodium (Porcine) 5,000 unit 06/28/20 21:00 06/30/20 08:43 Heparin 5,000 Unit/Ml Vial SUBQ 5,000 unit BID [facility] Administration Lactated Ringer's 1,000 mls @ 100 mls/hr 06/30/20 08:13 06/30/20 10:33 Lr IV 07/01/20 04:12 100 mls/hr .Q10H [facility] Administration Ondansetron HCl 4 mg 06/28/20 16:48 06/29/20 12:17 Ondansetron 4 Mg/2 Ml Vial IVP 4 mg Q6HR PRN Administration Nausea / Vomiting Sodium Chloride 10 ml 06/28/20 16:48 06/29/20 12:17 Sodium Chloride Flush 0.9% 10 Ml Syringe IVP 10 ml PRN PRN Administration NEEDED PER PROVIDER ORDERS Sodium Chloride 10 ml 06/28/20 17:00 06/30/20 09:00 Sodium Chloride Flush 0.9% 10 Ml Syringe IVP Not Given 0100,0900,1700 [facility] - Lab Result Fish Bone Diagrams: 06/30/20 05:53 06/30/20 05:25 - Additional Planning My Orders: My Active Orders 06/30/20 OCCULT BLOOD IN PAT. SINGLE [RAPID] Urgent 06/30/20 08:13 Lactated Ringers [Lr] 1,000 ml IV 100 mls/hr 06/30/20 12:00 Neutra-Phos [K-Phos Neutral] 250 mg PO TIDWM 06/30/20 Dinner Full Liquid Diet [DIET] 07/01/20 05:00 URIC ACID [CHEM] DAILYLAB 07/01/20 07:00 Levothyroxine [Synthroid] 100 mcg PO QDAC 07/02/20 05:00 URIC ACID [CHEM] DAILYLAB 07/03/20 05:00 URIC ACID [CHEM] DAILYLAB Subjective - Subjective Patient Reports: Nausea Nursing Reports: Nausea, Vomitting Objective Vital Signs: Vital Signs - 24 hr 06/29/20 06/30/20 06/30/20 16:41 01:04 09:02 Temperature 36.5 C 36.6 C 36.4 C L Heart Rate [ 101 H 88 101 H Brachial] Respiratory 18 15 Rate Blood Pressure 121/58 L 122/58 L 132/57 H [Right Brachial artery] O2 Saturation 92 97 94 Oxygen O2 Source Room air I&O (Last 24 Hrs): Intake and Output Totals x24h 06/28/20 06/29/20 06/30/20 23:59 23:59 23:59 Intake Total 2150 3865.833 2236.000 Output Total 1 700 Balance 2150 3864.833 1536.000 General: Alert, Oriented x3, Cooperative HEENT: Atraumatic Neck: Supple Lymphatic: no adenopathy Neuro: Alert, Non Focal, Oriented Times 3 Cardiovascular: Regular rate, Normal S1, Normal S2 Respiratory: Chest non-tender, No respiratory distress Abdomen: Normal bowel sounds, Soft, No tenderness Extremities: Normal pulses - Results Results: Laboratory Results WBC 8.3 x10^3/uL (4.8-10.8) 06/30/20 05:53 RBC 3.51 10^6/uL (4.20-5.40) L 06/30/20 05:57 Hgb 8.9 g/dL (12.0-16.0) L 06/30/20 05:53 Hct 30.6 % (37.0-47.0) L 06/30/20 05:53 MCV 86.4 fL (81.0-99.0) 06/30/20 05:53 MCH 25.1 pg (27.0-31.0) L 06/30/20 05:53 MCHC 29.1 g/dL (32.0-36.0) L 06/30/20 05:53 RDW 15.6 % (12.0-15.0) H 06/30/20 05:53 Plt Count 461 10^3/uL (130-450) H 06/30/20 05:53 MPV 9.3 fL (7.9-10.8) 06/30/20 05:53 Reticulocyte % (Auto) 3.14 % (0.5-2.3) H 06/30/20 05:57 Neut # (Auto) 6.4 10^3/uL (1.5-6.6) 06/30/20 05:53 Lymph # (Auto) 1.0 10^3/uL (1.5-3.5) L 06/30/20 05:53 Letcher # (Auto) 0.7 10^3/uL (0.0-1.0) 06/30/20 05:53 Eos # (Auto) 0.0 10^3/uL (0.0-0.7) 06/30/20 05:53 Baso # (Auto) 0.0 10^3/uL (0.0-0.1) 06/30/20 05:53 Absolute Nucleated RBC 0.00 x10^3/uL 06/30/20 05:53 Nucleated RBC % 0.0 /100WBC 06/30/20 05:53 Absolute Retic 0.110 10^6/uL (0.020-0.110) 06/30/20 05:57 Sodium 130 mmol/L (135-145) L 06/30/20 05:25 Potassium 3.4 mmol/L (3.5-5.0) L 06/30/20 05:25 Chloride 95 mmol/L (101-111) L 06/30/20 05:25 Carbon Dioxide 25 mmol/L (21-32) 06/30/20 05:25 Anion Gap 10.0 (6-13) 06/30/20 05:25 BUN 27 mg/dL (6-20) H 06/30/20 05:25 Creatinine 1.1 mg/dL (0.4-1.0) H 06/30/20 05:25 Estimated GFR (MDRD) 48 (>89) L 06/30/20 05:25 Glucose 82 mg/dL (70-100) 06/30/20 05:25 Uric Acid 4.1 mg/dL (2.6-7.2) 06/30/20 05:25 Calcium 8.1 mg/dL (8.5-10.3) L 06/30/20 05:25 Phosphorus 1.9 mg/dL (2.5-4.6) L 06/30/20 05:25 Magnesium 2.0 mg/dL (1.7-2.8) 06/30/20 05:25 Iron 31 ug/dL (28-170) 06/30/20 05:57 TIBC 300 ug/dL (250-450) 06/30/20 05:57 % Saturation 10 % (20-50) L 06/30/20 05:57 Transferrin 214 mg/dL (192-382) 06/30/20 05:57 Ferritin 59.2 ng/mL (11.0-306.8) 06/30/20 05:57 Total Bilirubin 0.5 mg/dL (0.2-1.0) 06/28/20 13:30 AST 28 IU/L (10-42) 06/28/20 13:30 ALT 24 IU/L (10-60) 06/28/20 13:30 Alkaline Phosphatase 117 IU/L (42-121) 06/28/20 13:30 Lactate Dehydrogenase 167 IU/L (91-225) 06/30/20 05:57 Total Protein 7.8 g/dL (6.7-8.2) 06/28/20 13:30 Albumin 3.6 g/dL (3.2-5.5) 06/28/20 13:30 Globulin 4.2 g/dL (2.1-4.2) 06/28/20 13:30 Albumin/Globulin Ratio 0.9 (1.0-2.2) L 06/28/20 13:30 Lipase 55 U/L (22-51) H 06/28/20 13:30 Vitamin B12 1279 pg/mL (180-914) H 06/30/20 05:57 TSH 2.63 uIU/mL (0.34-5.60) 06/30/20 05:25 Urine Color YELLOW 06/29/20 17:40 Urine Clarity HAZY (CLEAR) 06/29/20 17:40 Urine pH 6.5 PH (5.0-7.5) 06/29/20 17:40 Ur Specific [place] 1.020 (1.002-1.030) 06/29/20 17:40 Urine Protein NEGATIVE mg/dL (NEGATIVE) 06/29/20 17:40 Urine Glucose (UA) NEGATIVE mg/dL (NEGATIVE) 06/29/20 17:40 Urine Ketones TRACE mg/dL (NEGATIVE) 06/29/20 17:40 Urine Occult Blood NEGATIVE (NEGATIVE) 06/29/20 17:40 Urine Nitrite NEGATIVE (NEGATIVE) 06/29/20 17:40 Urine Bilirubin NEGATIVE (NEGATIVE) 06/29/20 17:40 Urine Urobilinogen 0.2 (NORMAL) E.U./dL (NORMAL) 06/29/20 17:40 Ur Leukocyte Esterase NEGATIVE (NEGATIVE) 06/29/20 17:40 Urine RBC 0-5 /HPF (0-5) 06/29/20 17:40 Urine WBC 0-3 /HPF (0-5) 06/29/20 17:40 Ur Squamous Epith Cells MANY Squamous (<= Few) H 06/29/20 17:40 Urine Bacteria Rare /HPF (None Seen) 06/29/20 17:40 Urine Yeast PRESENT 06/29/20 17:40 Ur Microscopic Review INDICATED 06/29/20 17:40 Urine Culture Comments NOT INDICATED 06/29/20 17:40 Nasal Adenovirus (PCR) NOT DETECTED 06/28/20 17:25 Nasal B. parapertussis DNA (PCR) NOT DETECTED 06/28/20 17:25 Nasal Coronavir 229E PCR NOT DETECTED 06/28/20 17:25 Nasal Coronavir HKU1 PCR NOT DETECTED 06/28/20 17:25 Nasal Coronavir NL63 PCR NOT DETECTED 06/28/20 17:25 Nasal Coronavir OC43 PCR NOT DETECTED 06/28/20 17:25 Nasal Enterovir/Rhinovir PCR NOT DETECTED 06/28/20 17:25 Nasal Influenza B PCR NOT DETECTED 06/28/20 17:25 Nasal Influenza A PCR NOT DETECTED 06/28/20 17:25 Nasal Parainfluen 1 PCR NOT DETECTED 06/28/20 17:25 Nasal Parainfluen 2 PCR NOT DETECTED 06/28/20 17:25 Nasal Parainfluen 3 PCR NOT DETECTED 06/28/20 17:25 Nasal Parainfluen 4 PCR NOT DETECTED 06/28/20 17:25 Nasal RSV (PCR) NOT DETECTED 06/28/20 17:25 Nasal B.pertussis DNA PCR NOT DETECTED 06/28/20 17:25 Nasal C.pneumoniae (PCR) NOT DETECTED 06/28/20 17:25 Vasquez Human Metapneumo PCR NOT DETECTED 06/28/20 17:25 Nasal M.pneumoniae (PCR) NOT DETECTED 06/28/20 17:25 Nasal SARS-CoV-2 (PCR) NOT DETECTED 06/28/20 17:25 - Procedures Procedures: Procedures EXCISION OF MESENTERIC LYMPHATIC, OPEN APPROACH, DIAGNOSTIC (05/18/20) ABX Reporting Has patient been on IV antibiotics over the past 48 hours?: No Current Medications - Current Medications Current Medications: Active Medications Acetaminophen (Acetaminophen 325 Mg Tablet) 650 mg PO Q4HR PRN PRN Reason: Pain 1 to 4 Allopurinol (Allopurinol 100 Mg Tablet) 100 mg PO DAILY [facility] Last Admin: 06/30/20 08:55 Dose: 100 mg Documented by: Carvedilol (Carvedilol 12.5 Mg Tablet) 12.5 mg PO BIDWM [facility] Last Admin: 06/30/20 08:55 Dose: 12.5 mg Documented by: Heparin Sodium (Porcine) (Heparin 5,000 Unit/Ml Vial) 5,000 unit SUBQ BID [facility] Last Admin: 06/30/20 08:43 Dose: 5,000 unit Documented by: Lactated Ringer's (Lr) 1,000 mls @ 100 mls/hr IV .Q10H [facility] Stop: 07/01/20 04:12 Last Admin: 06/30/20 10:33 Dose: 100 mls/hr Documented by: Levothyroxine Sodium (Levothyroxine 100 Mcg Tablet) 100 mcg PO QDAC [facility] Ondansetron HCl (Ondansetron 4 Mg/2 Ml Vial) 4 mg IVP Q6HR PRN PRN Reason: Nausea / Vomiting Last Admin: 06/29/20 12:17 Dose: 4 mg Documented by: Sodium Chloride (Sodium Chloride Flush 0.9% 10 Ml Syringe) 10 ml IVP PRN PRN PRN Reason: NEEDED PER PROVIDER ORDERS Last Admin: 06/29/20 12:17 Dose: 10 ml Documented by: Sodium Chloride (Sodium Chloride Flush 0.9% 10 Ml Syringe) 10 ml IVP 0100,0900,1700 [facility] Last Admin: 06/30/20 09:00 Dose: Not Given Documented by: Sodium Phosphate (Neutra-Phos 250 Mg Tablet) 250 mg PO TIDWM [facility] Temazepam (Temazepam 15 Mg Capsule) 15 mg PO QPM PRN PRN Reason: Insomnia Calcium/Magnesium/Zinc [Owxjxpd-Vratkaygh-Mynt Tablet] 1 tab PO DAILY 05/29/18 Estrogens, Conjugated [Premarin] 0.625 mg PO DAILY 05/29/18 Levothyroxine [Synthroid] 100 mcg PO DAILY 05/29/18 Multivitamin [Multiple Vitamins] 1 tab PO DAILY 05/29/18 carvediloL [Carvedilol] 12.5 mg PO BID 05/29/18 Cholecalciferol [Vitamin D3] 25 mcg PO DAILY 05/15/20 Omeprazole 20 mg PO DAILY 05/15/20 Magnesium Oxide [Mag-Oxide] 400 mg PO BID 06/28/20
[2020-06-30] MEDS ORDERED: TEMAZEPAM 15 MG CAPSULE PO PRN (14:24)
[2020-06-30] MEDS: NEUTRA-PHOS 250 MG TABLET PO SCH ×2 (16:26→17:15)
[2020-07-01] MEDS: ONDANSETRON 4 MG/2 ML VIAL IVP PRN ×2 (00:20→12:40)
[2020-07-01] MEDS: HYDROmorphone 0.5 MG/0.5 ML SYRINGE IVP PRN ×2 (00:56→12:54)
[2020-07-01] MEDS: SODIUM CHLORIDE FLUSH 0.9% 10 ML SYRINGE IVP SCH ×2 (05:10→08:29)
[2020-07-01 05:28] LABS: BASOPHILS % (AUTO) 0.4 %; EOSINOPHILS % (AUTO) 0.3 %; HGB - HEMOGLOBIN 8.3 g/dL (12.0-16.0); LYMPHOCYTES # (AUTO) 0.9 10^3/uL (1.5-3.5); LYMPHOCYTES % (AUTO) 11.8 %; MEAN CORPUSCULAR HEMOGLOBIN 24.6 pg (27.0-31.0); MEAN CORPUSCULAR HGB CONC 28.9 g/dL (32.0-36.0); MEAN CORPUSCULAR VOLUME 84.9 fL (81.0-99.0); MEAN PLATELET VOLUME 9.5 fL (7.9-10.8); MONOCYTES # (AUTO) 0.6 10^3/uL (0.0-1.0); MONOCYTES % (AUTO) 8.3 %; NEUTROPHILS # (AUTO) 5.8 10^3/uL (1.5-6.6); PLT - PLATELET COUNT 388 10^3/uL (130-450); RED BLOOD COUNT 3.38 10^6/uL (4.20-5.40); WHITE BLOOD COUNT 7.6 x10^3/uL (4.8-10.8)
[2020-07-01 05:41] LABS: CREATININE 0.9 mg/dL (0.4-1.0); MAGNESIUM 1.8 mg/dL (1.7-2.8); PHOSPHORUS 2.7 mg/dL (2.5-4.6); URIC ACID 2.7 mg/dL (2.6-7.2)
[2020-07-01] MEDS ORDERED: LEVOTHYROXINE 100 MCG TABLET PO SCH (07:00)
[2020-07-01] MEDS: SODIUM CHLORIDE FLUSH 0.9% 10 ML SYRINGE IVP PRN (07:41)
[2020-07-01] MEDS: allopurinoL 100 MG TABLET PO SCH (08:29)
[2020-07-01] MEDS: NEUTRA-PHOS 250 MG TABLET PO SCH ×2 (08:29→12:49)
[2020-07-01] MEDS: carvediloL 12.5 MG TABLET PO SCH (08:29)
[2020-07-01] MEDS: HEPARIN 5,000 UNIT/ML VIAL SUBQ SCH (08:31)
--- NOTE | 2020-07-01 09:28 | XRAY Report ---
PROCEDURE: Abdomen 1 View X-Ray INDICATIONS: epigastric abd pain TECHNIQUE: 1 view of the abdomen were acquired. COMPARISON: None FINDINGS: Surgical changes and devices: None. Bowel: No free air within the limits of this evaluation. There are a few mildly dilated loops of smal l bowel within the upper abdomen measuring up to 2.4 cm. There are air-fluid levels. Soft tissues: No masses; visualized solid organ contours appear normal in size. No suspicious abdom inal calcifications. Post surgical changes of prior cholecystectomy. Bones: No suspicious bony abnormalities. IMPRESSION: A few loops of mildly dilated small bowel with air-fluid levels concerning for obstruction. Reviewed by: Carl Garcia DO on 07/01/2020 8:27 AM RAY Approved by: Carl Garcia DO on 07/01/2020 8:[address] [facility] Station ID: [id number]
--- NOTE | 2020-07-01 12:43 | DISCHARGE SUMMARY ---
Discharge Summary Admit Date: 06/28/20 Discharge Date: 07/01/20 Discharging Provider: [place] Primary Care Provider: Alessia Ga Code Status: Attempt Resuscitation Condition at Discharge: Stable Discharge Disposition: Transfer Acute Care Hosp [facility] - DIAGNOSES Admission Diagnoses: Severe dehydration Acute kidney injury Admitted to chemotherapy Postmenopausal disorder Hypertension B-cell lymphoma Discharge Diagnoses with Status of Each Condition: Small bowel obstruction - ongoing B-cell lymphoma - ongoing. Acute kidney injury - resolved. Anemia - stable. Hypertension - stable. - HPI History of Present Illness: H&P per Dr. Solis: This is a 75-year-old female who presents to the emergency room after just being discharged June 24. She presents with nausea vomiting decreased p.o. intake with weakness. She is so nauseated she has not been able to eat very much and she now has a severe abrupt rise in creatinine. She initially presented as abdominal pain in the November [address] scan January showed her to have lymphadenopathy. She continued to have symptoms but the CT scan was not followed up on. When she presented to the surgery office for follow-up of abdominal pain, repeat CT scan April showed worsening lymphadenopathy and she underwent a biopsy thru exploratory lap. Biopsy 05/09 established lymphoma. Lymphoma was the extent that it surrounded her small bowel, and she presented as a small bowel obstruction June 04, 2020. Since she needed chemotherapy to resolve the small bowel obstruction, not surgery, she was transferred to [place] from June 04 through June 12. Treatment was NG tube, IV fluids, bowel rest, octreotide and no surgery. She also underwent a PICC line and was placed on R-CHOP. R-CHOP gave her nausea, vomiting, shakes and weakness. First cycle was June 06. She received IV steroids and G-CSF as well. After being discharged from [place] June 12, she followed up with oncology and her next cycle was due June 27. She continued to have weakness, poor appetite. She began coughing and had sputum production. She presented to the emergency room June 19. Initially we were worried that she may have aspirated with her initial NG tube placement for the small bowel obstruction in May. When she presented to the emergency room she was hypoxic to 88% on room air. Respiratory rate in the 30s. Chest x-ray showed diffuse interstitial prominence and perihilar airway thickening that was felt to be either infectious versus inflammatory. No focal consolidation. She was treated as a possible healthcare associated pneumonia/bronchitis with Zosyn and azithromycin. A repeat echocardiogram was done and compared to her previous echocardiogram and her ejection fraction has been maintained at 60 to 65%. She was able to go home without oxygen. She missed her cycle on June 27 but she did follow-up with them. She was discharged June 24. With today's presentation she maintains that she is just not been able to maintain p.o. intake. She has nausea, vomiting. Consistent mild generalized abdominal aching. There is no diarrhea. She denies fevers, chills, sweats. Her urine has not changed color and has not become dark. She denies coughing, wheezing, chest pain. No calf pain. She denies urgency, frequency, dysuria. On examination she was afebrile with a pulse of 103. Blood pressure 120/84. Respirations 16. 96% saturated. She was a well-nourished well-developed female who is alert and oriented but found to be "tachycardic and hypertensive" per the ER note. This does not jibe with vital signs recorded but that was what was documented. She was pale, very dehydrated and lips were parched. She was alert, oriented following commands. Abdomen was soft and nontender. White cell count was 14.7, hemoglobin 11.8, MCV 80. Platelets 948. Sodium 134, potassium 4. BUN 59 and creatinine 4.3. Her usual creatinine is 0.9. Random glucose 146. LFTs normal. Lipase 55. Bedside sonography showed her IVC to be severely shrunken and estimated 1 to 2 L deficit. Emergency room provider has asked us to admit the patient for dehydration. - CONSULTS | PROCEDURES Consultations: PT - HOSPITAL COURSE Hospital Course: She was admitted for acute renal failure secondary to dehydration due to nausea and vomiting. She was treated with IV fluids with improvement in her renal function. Her creatinine decreased from 4.3 down to 0.9. A renal ultrasound was unremarkable. Uric acid was elevated on admission at greater than 12 and she was started on allopurinol. There was low suspicion for tumor lysis syndrome given normal calcium, potassium, LDH. She had a white count on admission as well as thrombocytosis which are both since resolved. This was likely due to hemoconcentration given her dehydration. Although her renal function has returned to baseline, she has had ongoing vomiting and overnight she had severe abdominal pain. Abdominal x-ray was obtained which was consistent with small bowel obstruction. She felt improved this morning and so she was trialed on a clear liquid diet but unfortunately she had vomiting with this and ongoing abdominal pain. She has not had flatus. Given her history of lymphoma and prior need for transfer for inpatient chemotherapy due to small bowel obstruction, oncology at [place] was contacted. I spoke with Dr. Joshua to discuss the case and she graciously accepted the patient in transfer. I also spoke with the hospitalist on-call who also graciously acc epted the patient onto their service. A repeat Covid test was obtained prior to discharge. A NG tube was also placed. - ALLERGIES Allergies/Adverse Reactions: Allergies Allergy/AdvReac Type Severity Reaction Status Date / Time morphine AdvReac Emesis Verified 06/28/20 13:16 shellfish derived AdvReac Emesis Verified 06/28/20 13:16 - MEDICATIONS Home Medications: Ambulatory Orders Medication Instructions Recorded Confirmed Calcium/Magnesium/Zinc 1 tab PO DAILY 05/29/18 06/28/20 [Brtwhpl-Sbkgrbowo-Svou Tablet] Estrogens, Conjugated [Premarin] 0.625 mg PO DAILY 05/29/18 06/28/20 Levothyroxine [Synthroid] 100 mcg PO DAILY 05/29/18 06/28/20 Multivitamin [Multiple Vitamins] 1 tab PO DAILY 05/29/18 06/28/20 carvediloL [Carvedilol] 12.5 mg PO BID 05/29/18 06/28/20 Cholecalciferol [Vitamin D3] 25 mcg PO DAILY 05/15/20 06/28/20 Omeprazole 20 mg PO DAILY 05/15/20 06/28/20 Lidocaine/Prilocain 2.5% Cream 5 applic TOP UD #1 tube 06/14/20 06/28/20 [Emla 2.5% Cream] Olanzapine [Zyprexa] 5 mg PO UD #20 tablet 06/14/20 06/28/20 Prochlorperazine Maleate 10 mg PO Q6HR PRN #30 tab 06/14/20 06/28/20 [Compazine] predniSONE [Prednisone] 100 mg PO UD #25 tab 06/14/20 06/28/20 Magnesium Oxide [Mag-Oxide] 400 mg PO BID 06/28/20 06/29/20 Home Medications Other | Comments: Active Medications Acetaminophen (Acetaminophen 325 Mg Tablet) 650 mg PO Q4HR PRN PRN Reason: Pain 1 to 4 Allopurinol (Allopurinol 100 Mg Tablet) 100 mg PO DAILY [facility] Last Admin: 07/01/20 08:29 Dose: 100 mg Documented by: Carvedilol (Carvedilol 12.5 Mg Tablet) 12.5 mg PO BIDWM [facility] Last Admin: 07/01/20 08:29 Dose: 12.5 mg Documented by: Heparin Sodium (Porcine) (Heparin 5,000 Unit/Ml Vial) 5,000 unit SUBQ BID [facility] Last Admin: 07/01/20 08:31 Dose: 5,000 unit Documented by: Hydromorphone HCl (Hydromorphone 0.5 Mg/0.5 Ml Syringe) 0.5 mg IVP Q2H PRN PRN Reason: PAIN Last Admin: 07/01/20 12:54 Dose: 0.5 mg Documented by: Lactated Ringer's (Lr) 1,000 mls @ 100 mls/hr IV .Q10H [facility] Potassium Chloride (Potassium Chloride) 10 meq in 100 mls @ 100 mls/hr IV Q1H [facility] Stop: 07/01/20 17:59 Levothyroxine Sodium (Levothyroxine 100 Mcg Tablet) 100 mcg PO QDAC [facility] Last Admin: 07/01/20 07:41 Dose: 100 mcg Documented by: Ondansetron HCl (Ondansetron 4 Mg/2 Ml Vial) 4 mg IVP Q6HR PRN PRN Reason: Nausea / Vomiting Last Admin: 07/01/20 12:40 Dose: 4 mg Documented by: Sodium Chloride (Sodium Chloride Flush 0.9% 10 Ml Syringe) 10 ml IVP PRN PRN PRN Reason: NEEDED PER PROVIDER ORDERS Last Admin: 07/01/20 07:41 Dose: 10 ml Documented by: Sodium Chloride (Sodium Chloride Flush 0.9% 10 Ml Syringe) 10 ml IVP 0100,0900,1700 [facility] Last Admin: 07/01/20 08:29 Dose: 10 ml Documented by: Sodium Phosphate (Neutra-Phos 250 Mg Tablet) 250 mg PO TIDWM [facility] Last Admin: 07/01/20 12:49 Dose: Not Given Documented by: Temazepam (Temazepam 15 Mg Capsule) 15 mg PO QPM PRN PRN Reason: Insomnia Last Admin: 07/01/20 00:21 Dose: 15 mg Documented by: Calcium/Magnesium/Zinc [Fidxvir-Xdhtbjfxb-Noue Tablet] 1 tab PO DAILY 05/29/18 Estrogens, Conjugated [Premarin] 0.625 mg PO DAILY 05/29/18 Levothyroxine [Synthroid] 100 mcg PO DAILY 05/29/18 Multivitamin [Multiple Vitamins] 1 tab PO DAILY 05/29/18 carvediloL [Carvedilol] 12.5 mg PO BID 05/29/18 Cholecalciferol [Vitamin D3] 25 mcg PO DAILY 05/15/20 Omeprazole 20 mg PO DAILY 05/15/20 Magnesium Oxide [Mag-Oxide] 400 mg PO BID 06/28/20 - PHYSICAL EXAM AT DISCHARGE General Appearance: positive: Alert, Mild distress Eyes Bilateral: positive: Normal inspection, Conjunctivae nml ENT: positive: ENT inspection nml Neck: positive: Nml inspection Respiratory: positive: No respiratory distress. negative: Wheezes, Rales Cardiovascular: positive: Regular rate & rhythm. negative: Irregularly irregular, Tachycardia, Systolic murmur Abdomen: positive: No distention, Tenderness (She has diffuse tenderness all this is most prominent over the left side of the abdomen.), Abnml bowel sounds (Hypoactive bowel sounds.). negative: Non-tender, Guarding, Rebound Skin: positive: Warm, Dry Extremities: positive: No pedal edema Neurologic/Psychiatric: negative: Disoriented to person, Disoriented to place Physical Exam Other/Comments: Vital Signs - 24 hr 06/30/20 07/01/20 07/01/20 16:57 00:27 07:57 Temperature 36.6 C 36.3 C L 36.3 C L Heart Rate [ 88 93 100 Brachial] Respiratory 18 18 22 Rate Blood Pressure 129/52 L 137/76 H 134/76 H [Right Brachial artery] O2 Saturation 93 94 93 Oxygen O2 Source Room air - LABS Result Diagrams: 07/01/20 05:02 07/01/20 05:02 Other Lab Results: Laboratory Results 07/01/20 05:02: Sodium 130 L, Potassium 3.4 L, Chloride 96 L, Carbon Dioxide 28, Anion Gap 6.0, BUN 16, Creatinine 0.9, Estimated GFR (MDRD) 61 L, Glucose 99, Uric Acid 2.7, Calcium 8.0 L, Phosphorus 2.7, Magnesium 1.8 07/01/20 05:02: WBC 7.6, RBC 3.38 L, Hgb 8.3 L, Hct 28.7 L, MCV 84.9, MCH 24.6 L, MCHC 28.9 L, RDW 16.0 H, Plt Count 388, MPV 9.5, Neut # (Auto) 5.8, Lymph # (Auto) 0.9 L, Page # (Auto) 0.6, Eos # (Auto) 0.0, Baso # (Auto) 0.0, Absolute Nucleated RBC 0.00, Nucleated RBC % 0.0 06/30/20 05:57: Lactate Dehydrogenase 167 06/30/20 05:57: Ferritin 59.2, Vitamin B12 1279 H 06/30/20 05:57: Iron 31, TIBC 300, % Saturation 10 L, Transferrin 214 06/30/20 05:57: RBC 3.51 L, Reticulocyte % (Auto) 3.14 H, Absolute Retic 0.110 06/30/20 05:53: WBC 8.3, RBC 3.54 L, Hgb 8.9 L, Hct 30.6 L, MCV 86.4, MCH 25.1 L, MCHC 29.1 L, RDW 15.6 H, Plt Count 461 H, MPV 9.3, Neut # (Auto) 6.4, Lymph # (Auto) 1.0 L, Page # (Auto) 0.7, Eos # (Auto) 0.0, Baso # (Auto) 0.0, Absolute Nucleated RBC 0.00, Nucleated RBC % 0.0 06/30/20 05:25: TSH 2.63 06/30/20 05:25: Sodium 130 L, Potassium 3.4 L, Chloride 95 L, Carbon Dioxide 25, Anion Gap 10.0, BUN 27 H, Creatinine 1.1 H, Estimated GFR (MDRD) 48 L, Glucose 82, Uric Acid 4.1, Calcium 8.1 L, Phosphorus 1.9 L, Magnesium 2.0 06/29/20 17:40: Urine Color YELLOW, Urine Clarity HAZY, Urine pH 6.5, Ur Specific [place] 1.020, Urine Protein NEGATIVE, Urine Glucose (UA) NEGATIVE, Urine Ketones TRACE, Urine Occult Blood NEGATIVE, Urine Nitrite NEGATIVE, Urine Bilirubin NEGATIVE, Urine Urobilinogen 0.2 (NORMAL), Ur Leukocyte Esterase NEG ATIVE, Urine RBC 0-5, Urine WBC 0-3, Ur Squamous Epith Cells MANY Squamous H, Urine Bacteria Rare, Urine Yeast PRESENT, Ur Microscopic Review INDICATED, Urine Culture Comments NOT INDICATED - DIAGNOSTIC IMAGING Diagnostic Imaging Results: Final report reviewed - TIME SPENT Time Spent in Discharge (Minutes): 42
[2020-07-01] MEDS ORDERED: LACTATED RINGERS 1,000 ML IV SCH (13:00)
[2020-07-01] MEDS ORDERED: HYDROmorphone 2 MG/ML VIAL IVP STA (13:52)
[2020-07-01] MEDS ORDERED: POTASSIUM CHLOR 10 MEQ/100 ML 10 MEQ/100 ML BAG IV SCH (14:00)
[2020-07-01 14:13] LABS: C. PNEUMONIAE- RESP PCR PANEL NOT DETECTED
[2020-07-01 14:21] VITALS: BP 118/59
== END 2020-07-01 14:45 | disposition short-term general hospital (02) | DRG 389 ==
LOC: EDUNIT# → ED 13:08 → MS3 16:48
PROVIDERS: ADMIT Internal Medicine; ATTEND Internal Medicine
DX: K56.609 Unspecified intestinal obstruction, unspecified as to partial versus complete obstruction (principal); N17.9 Acute kidney failure, unspecified; C85.90 Non-Hodgkin lymphoma, unspecified, unspecified site; C83.33 Diffuse large B-cell lymphoma, intra-abdominal lymph nodes; E86.0 Dehydration; D47.3 Essential (hemorrhagic) thrombocythemia; I10 Essential (primary) hypertension; E03.9 Hypothyroidism, unspecified; D64.81 Anemia due to antineoplastic chemotherapy; R79.89 Other specified abnormal findings of blood chemistry; T45.1X5A Adverse effect of antineoplastic and immunosuppressive drugs, initial encounter; M19.90 Unspecified osteoarthritis, unspecified site; N95.9 Unspecified menopausal and perimenopausal disorder; Z96.659 Presence of unspecified artificial knee joint; Z20.822 Contact with and (suspected) exposure to COVID-19; Z79.52 Long term (current) use of systemic steroids; Z79.899 Other long term (current) drug therapy; Z87.01 Personal history of pneumonia (recurrent); Z87.19 Personal history of other diseases of the digestive system
CPT/HCPCS: 36415; 71045; 74018; 76770; 80048; 80053; 81001; 82607; 82728; 83540; 83615; 83690; 83735; 84100; 84443; 84466; 84550; 85025; 85045; 87631; 96361; 96374; 97161; 97165; 99284; 99285; A9270; J1170; J7120; 0202U; 81003; 82272; 87086

== ENCOUNTER 2020-07-01 15:03 | Outpatient (CLI) | payer MEDICARE, OTHER | END 2020-07-01 15:04 | disposition short-term general hospital (02) | LOC: EMS 15:03 | PROVIDERS: ATTEND Surgery | DX: K56.609 Unspecified intestinal obstruction, unspecified as to partial versus complete obstruction (principal); C85.90 Non-Hodgkin lymphoma, unspecified, unspecified site | CPT/HCPCS: A0425; A0426 ==